=== PATIENT | male | born 1940 | race Caucasian/White ===

== ENCOUNTER 2016-11-24 02:11 | Inpatient (IN) | payer OTHER, MEDICARE ==
[2016-11-24] VITALS (24 sets, daily range): BP systolic 87–190; BP diastolic 58–111; PULSE 61–137; RESP 18–28; TEMP 97.7–98.8; O2SAT 90–97
[~2016-11-24] VITALS: Ht 180.3 cm; Wt 71.0 kg
[~2016-11-24 02:11] MED LIST: ASPI81CH CHEW; ATOR20TA15 PO; BACT800T5 PO; CLOP75TA PO; LISI10TA3 PO; NORC5TAB PO; WALKER WHEELS/F1 MIS
[2016-11-24] MEDS ORDERED: SODIUM CHLORIDE 0.9% FLUSH 5 ML FLUSH IVF PRN (02:30)
[2016-11-24] MEDS ORDERED: FUROSEMIDE 100 MG/10 ML VIAL IVP ONE (02:30)
--- NOTE | 2016-11-24 02:31 | PD ---
HPI Chief Complaint: Respiratory Symptoms Time Seen by Provider: 02:26 Travel History International Travel<30 days: No Contact w/Intl Traveler<30days: No Traveled to known affect area: No History of Present Illness HPI The patient is a 76-year-old male with no known history of lung problems and no history of congestive heart failure complains of sudden onset short of breath one hour ago. He denies any chest discomfort. He states a similar episode happened about a month ago but it went away spontaneously within a few minutes. He denies any fever, cough, wheezing or peripheral extremity swelling. PFSH Past Medical History Hx Anticoagulant Therapy: Yes (asa 81mg, plavix 75mg) Cancer: No Cardiac Catheterization: Yes Cardiovascular Problems: Yes (htn on meds) High Cholesterol: Yes Cerebrovascular Accident: Yes (tia) Coronary Artery Disease: Yes Diminished Hearing: No Endocrine: No Genitourinary: No Hypertension: Yes Immune Disorder: No Implanted Vascular Access Dvce: No Musculoskeletal: No Neurologic: No Psychiatric: No Reproductive: No Respiratory: No ?: Not Past Surgical History Other Surgery: Yes (right endarterectomy 10/2015, SINUS POLYPS REMOVED) Social History Alcohol Use: Yes (OCCASIONAL) Tobacco Use: Yes (1 PPD) Substance Use: No Allergies-Medications (Allergen,Severity, Reaction): Coded Allergies: No Known Allergies (Unverified , 11/24/16) Reported Meds & Prescriptions Reported Meds & Active Scripts Active Reported Atorvastatin (Atorvastatin Calcium) 20 Mg Tab 40 Mg PO BID Clopidogrel (Clopidogrel Bisulfate) 75 Mg Tab 75 Mg PO DAILY Lisinopril 10 Mg Tab 10 Mg PO DAILY Aspirin 81 Mg Chew 81 Mg CHEW DAILY Review of Systems Except as stated in HPI: all other systems reviewed are Neg Physical Exam Narrative GENERAL: The patient is alert, oriented 3 in moderate respiratory distress. His vital signs show blood pressure 190/111 with a heart rate of 137, respirations 28 and oximetry 90% on room air. SKIN: Warm and dry. HEAD: Atraumatic. Normocephalic. EYES: Pupils equal and round. No scleral icterus. No injection or drainage. ENT: No nasal bleeding or discharge. Mucous membranes pink and moist. NECK: Trachea midline. When the patient is laid back slightly he exhibits bilateral JVD. CARDIOVASCULAR: Regular rate and rhythm. No murmur appreciated. RESPIRATORY: No accessory muscle use. Bibasal Rales are heard.. Breath sounds equal bilaterally. GASTROINTESTINAL: Abdomen soft, non-tender, nondistended. Hepatic and splenic margins not palpable. MUSCULOSKELETAL: No obvious deformities. No clubbing. No cyanosis. No edema. NEUROLOGICAL: Awake and alert. No obvious cranial nerve deficits. Motor grossly within normal limits. Normal speech. PSYCHIATRIC: Appropriate mood and affect; insight and judgment normal. Data Data Last Documented VS Vital Signs Date Time Temp Pulse Resp B/P Pulse Ox O2 Delivery O2 Flow Rate FiO2 11/24/16 03:30 118 157/82 11/24/16 02:28 28 96 Nasal Cannula 2 11/24/16 02:17 98.8 Orders Complete Blood Count With Diff (11/24/16 02:25) Comprehensive Metabolic Panel (11/24/16 02:26) B-Type Natriuretic Peptide (11/24/16 02:26) Act Partial Throm Time (Ptt) (11/24/16 02:26) Prothrombin Time / Inr (Pt) (11/24/16 02:26) Magnesium (Mg) (11/24/16 02:26) Ckmb (Isoenzyme) Profile (11/24/16 02:26) Troponin I (11/24/16 02:26) Urinalysis - C+S If Indicated (11/24/16 02:26) Iv Access Insert/Monitor (11/24/16 02:26) Electrocardiogram (11/24/16 02:26) Ecg Monitoring (11/24/16 02:26) Oximetry (11/24/16 02:26) Oxygen Administration (11/24/16 02:26) Sodium Chloride 0.9% Flush (Ns Flush) (11/24/16 02:30) Furosemide Inj (Lasix Inj) (11/24/16 02:30) Nitroglycerin Sl (Nitrostat Sl) (11/24/16 02:30) Vital Signs (Adult) Q15MX4,Q4H (11/24/16 02:52) Director Advertising / Telemetry (11/24/16 02:52) Cardiac Rhythm ROSEMARIE.Q8H (11/24/16 02:52) ^ Notify Dr: Other (11/24/16 02:52) Diltiazem Inj (Cardizem Inj) (11/24/16 03:00) Diltiazem Inj (Cardizem Inj) (11/24/16 03:00) Urinary Catheter Insert/Apply (11/24/16 02:55) Chest, Single Ap (11/24/16 02:26) Heparin Infusion ROSEMARIE.Q1H (11/24/16 03:10) Heparin Inj (Heparin Inj) (11/24/16 03:15) Heparin Inj (Heparin Inj) (11/24/16 09:15) Heparin Inj (Heparin Inj) (11/24/16 09:15) Heparin-D5w Inj (Heparin-D5w Inj) (11/24/16 03:15) Cbc No Diff, Includes Plts (11/27/16 06:00) Act Partial Throm Time (Ptt) (11/24/16 10:10) Occult Blood (Hemoccult) Stool (11/24/16 03:10) Admit Order (Ed Use Only) (11/24/16 03:34) Labs Laboratory Tests Test 11/24/16 11/24/16 02:30 03:15 White Blood Count 10.1 TH/MM3 Red Blood Count 5.13 MIL/MM3 Hemoglobin 15.2 GM/DL Hematocrit 48.0 % Mean Corpuscular Volume 93.5 FL Mean Corpuscular Hemoglobin 29.5 PG Mean Corpuscular Hemoglobin 31.6 % Concent Red Cell Distribution Width 15.0 % Platelet Count 351 TH/MM3 Mean Platelet Volume 7.2 FL Neutrophils (%) (Auto) 50.1 % Lymphocytes (%) (Auto) 37.1 % Monocytes (%) (Auto) 6.1 % Eosinophils (%) (Auto) 5.9 % Basophils (%) (Auto) 0.8 % Neutrophils # (Auto) 5.0 TH/MM3 Lymphocytes # (Auto) 3.8 TH/MM3 Monocytes # (Auto) 0.6 TH/MM3 Eosinophils # (Auto) 0.6 TH/MM3 Basophils # (Auto) 0.1 TH/MM3 CBC Comment DIFF FINAL Differential Comment Prothrombin Time 10.5 SEC Prothromb Time International 1.0 RATIO Ratio Activated Partial 27.5 SEC Thromboplast Time Sodium Level 140 MEQ/L Potassium Level 4.3 MEQ/L Chloride Level 102 MEQ/L Carbon Dioxide Level 28.4 MEQ/L Anion Gap 10 MEQ/L Blood Urea Nitrogen 20 MG/DL Creatinine 1.20 MG/DL Estimat Glomerular Filtration 59 ML/MIN Rate Random Glucose 126 MG/DL Calcium Level 9.1 MG/DL Magnesium Level 2.3 MG/DL Total Bilirubin 0.4 MG/DL Aspartate Amino Transf 22 U/L (AST/SGOT) Alanine Aminotransferase 25 U/L (ALT/SGPT) Alkaline Phosphatase 137 U/L Total Creatine Kinase 77 U/L Troponin I 0.60 NG/ML B-Type Natriuretic Peptide 784 PG/ML Total Protein 9.0 GM/DL Albumin 3.9 GM/DL Urine Color STRAW Urine Turbidity CLEAR Urine pH 5.5 Urine Specific [place] 1.010 Urine Protein NEG mg/dL Urine Glucose (UA) NEG mg/dL Urine Ketones NEG mg/dL Urine Occult Blood TRACE Urine Nitrite NEG Urine Bilirubin NEG Urine Leukocyte Esterase NEG Urine RBC 3-5 /hpf Urine WBC 0-2 /hpf Urine Squamous Epithelial 0-5 /hpf Cells Urine Bacteria NONE /hpf Microscopic Urinalysis Comment CULT NOT INDICATED MDM Medical Decision Making Medical Screen Exam Complete: Yes Emergency Medical Condition: Yes Medical Record Reviewed: Yes Interpretation(s) The complete metabolic profile shows a BUN of 20, glucose 126, alk phosphatase 137 with total protein of 9.0 present otherwise unremarkable. The BNP is 784. The CK is normal but the troponin I is 0.60. The EKG shows atrial fibrillation with RVR [address] elevation on 23 and aVF. Differential Diagnosis Congestive heart failure with pulmonary edema, COPD acute exacerbation, asthma, allergic reaction Narrative Course I discussed the patient with Dr. Gomez. The patient has no chest discomfort. He may have had an acute cardiac event 1 month ago when he had similar symptoms but this does not appear to warrant a full STEMI alert status. He does have a slight elevation of the cardiac enzymes at 0.60. We will put the patient on heparin drip and transferred at [facility]. Dr. Gomez is consulting. The patient has put out about 1200 cc of urine at this time, it is 0340. Cardizem is brought the heart rate down to 108 and we will repeat EKG. The EKG done after the Cardizem showed no ST elevation in II, III, and F aVF. It does now show clear sinus rhythm with PACs. We can now discontinue the Cardizem drip. Impressions: New-onset congestive heart failure with pulmonary edema and elevated troponin I Plan: The patient will be transferred to [facility]. Diagnosis Primary Impression: Acute pulmonary edema with congestive heart failure Additional Impression: Elevated troponin I level Disposition: 01 DISCHARGE HOME Condition: Stable Yaakov Lindquist MD Nov 24, 2016 02:31
[2016-11-24] MEDS: NITROGLYCERIN 0.4 MG SL 25 TABS/BTL SL SCH ×2 (02:35→02:39)
[2016-11-24 02:56] LABS: BASOPHIL # 0.1 TH/MM3 (0-0.2); BASOPHIL % 0.8 % (0.0-2.0); EOSINOPHIL # 0.6 TH/MM3 (0-0.4); EOSINOPHIL % 5.9 % (0.0-4.0); HEMO FLAGS DIFF FINAL; LYMPH % 37.1 % (9.0-44.0); LYMPHOCYTE # 3.8 TH/MM3 (1.0-4.8); MEAN CELL VOLUME 93.5 FL (80.0-100.0); MEAN CORPUSCULAR HEMOGLOBIN 29.5 PG (27.0-34.0); MEAN CORPUSCULAR HGB CONC 31.6 % (32.0-36.0); MONO % 6.1 % (0.0-8.0); NEUT % 50.1 % (16.0-70.0); PLATELET COUNT 351 TH/MM3 (150-450); RED BLOOD COUNT 5.13 MIL/MM3 (4.50-5.90); WHITE BLOOD COUNT 10.1 TH/MM3 (4.0-11.0)
[2016-11-24] MEDS ORDERED: DILTIAZEM INJ 125 MG in SODIUM CHLORIDE 0.9% INJ 100 ML IV SCH (03:00)
[2016-11-24] MEDS ORDERED: DILTIAZEM HCL 25 MG/5 ML VIAL IVP ONE (03:00)
[2016-11-24 03:01] LABS: CHLORIDE 102 MEQ/L (98-107); POTASSIUM 4.3 MEQ/L (3.5-5.1); SODIUM (NA) 140 MEQ/L (136-145)
[2016-11-24 03:04] LABS: ANION GAP 10 MEQ/L (5-15); BICARBONATE 28.4 MEQ/L (21.0-32.0)
[2016-11-24 03:05] LABS: APTT (PATIENT) 27.5 SEC (24.3-30.1); BLOOD UREA NITROGEN 20 MG/DL (7-18); MAGNESIUM 2.3 MG/DL (1.5-2.5); PROTHROMBIN TIME - PATIENT 10.5 SEC (9.8-11.6)
[2016-11-24 03:07] LABS: ALT (GPT) 25 U/L (12-78)
[2016-11-24 03:08] LABS: AST (GOT) 22 U/L (15-37); GLOMERULAR FILTRATION RATE 59 ML/MIN (>89)
[2016-11-24 03:09] LABS: TOTAL BILIRUBIN ADULT 0.4 MG/DL (0.2-1.0)
[2016-11-24 03:10] LABS: ALKALINE PHOSPHATASE 137 U/L (45-117)
[2016-11-24 03:13] LABS: CREATINE KINASE 77 U/L (39-308)
[2016-11-24] MEDS ORDERED: HEPARIN SODIUM - IV 10,000 UNITS/10 ML VIAL IV ONE (03:15)
--- NOTE | 2016-11-24 03:17 | RADHPO ---
EXAM DATE/TIME: 11/24/2016 02:34 [place] COMPARISON: CHEST SINGLE AP, November 08, 2015, 14:43. INDICATIONS : Short of breath. MEDICAL HISTORY : None. SURGICAL HISTORY : None. ENCOUNTER: Initial ACUITY: 1 day PAIN SCORE: 3/10 LOCATION: Bilateral chest FINDINGS: Very mild, diffuse reticular opacities are seen in. No dense or confluent consolidation. No pleural e ffusion or pneumothorax. CONCLUSION: Mild edema and/or atypical infiltrates. Michael Day MD on November 24, 2016 at 3:13 Board Certified Radiologist. This report was verified electronically.
[2016-11-24 03:18] LABS: BLOOD, URINE TRACE (NEG); GLUCOSE,URINE NEG (NEG); KETONE, URINE NEG (NEG); NITRITE,URINE NEG (NEG); PH, URINE 5.5 (5.0-8.5)
[2016-11-24 03:25] LABS: COMMENT (UR) CULT NOT INDICATED; CULTURE IF INDICATED CULT NOT INDICATED; SQUAMOUS EPITHELIAL CELL URINE 0-5 /hpf (0-5); URINE COLOR STRAW (YELLW/STRAW); WBC, URINE 0-2 /hpf (0-5)
[2016-11-24] MEDS: HEPARIN-D5W INJ 250 ML IV SCH (03:25)
[2016-11-24] MEDS ORDERED: NALOXONE HCL 0.4 MG/ML AMP IV PRN (04:15)
[2016-11-24] MEDS ORDERED: SODIUM CHLORIDE 0.9% FLUSH 5 ML FLUSH FLUSH PRN (04:15)
[2016-11-24] MEDS ORDERED: HEPARIN SODIUM - IV 10,000 UNITS/10 ML VIAL IV PRN ×2 (09:15)
[2016-11-24 12:26] LABS: APTT (PATIENT) 36.2 SEC (24.3-30.1)
[2016-11-24] MEDS ORDERED: HEPARIN-NS/PF INJ 500 ML ONE (16:56)
[2016-11-24] MEDS ORDERED: MIDAZOLAM HCL 2 MG/2 ML VIAL ONE (16:56)
--- NOTE | 2016-11-24 17:03 | MB ---
cc: MIRYAM CAMPOS DATE OF CONSULTATION: 11/24/2016 REASON FOR CONSULTATION: Mr. Anderson is a 76 year-old white male with no previous cardiac issues. He presented with shortness of breath and no chest pains. He had similar episodes about a month ago. He has not had any peripheral edema, dizziness or lightheadedness. He has a history of transient ischemic attack. He is ruling in for myocardial infarction by enzymes. He is feeling much better with two liters of diuresis. PAST MEDICAL HISTORY: Positive for hypertension. Dyslipidemia. Transient ischemic attack. Peripheral vascular disease. Right endarterectomy . MEDICATIONS: Aspirin Lisinopril [place] Atorvastatin ALLERGIES NONE. SOCIAL HISTORY: The patient smokes one pack per day. He drinks alcohol occasionally. FAMILY HISTORY: Possible heart disease in his father. REVIEW OF SYSTEMS Otherwise negative. PHYSICAL EXAMINATION: VITAL SIGNS: Blood pressure 126/73. Pulse is 61 and regular. HEAD, EYES, EARS, NOSE, AND THROAT: Negative. 2+ carotid upstrokes, no bruits. LUNGS: Clear. HEART: Regular with no murmur, gallop. ABDOMEN: Soft, no tenderness. EXTREMITIES: Without edema. 1-2+ pulses. NEUROLOGIC: Grossly nonfocal. Electrocardiogram was reviewed and showed sinus we could not see right axis, the anteroseptal Q-waves and acute ST-T wave changes. LABS: Potassium 4.3, creatinine 1.2, troponin 0.60, and 5.85. Creatine kinase 77, B-type natriuretic peptide 784. DIAGNOSIS: 1. Non-ST elevation myocardial infarction. 2. Acute congestive heart failure. 3. Hypertension. 4. Peripheral vascular disease, h/o carotid endarterectomy. 5. Dyslipidemia. 6. Smoking. PLAN: Mr. Anderson will undergo cardiac catheterization and coronary intervention if necessary today. He understands the risks and benefits and wishes to proceed. We will continue post myocardial infarction care and aggressive modification of his cardiac risk factors. The patient understands the risks and benefits, and wishes to proceed. MD RACHANA Mcneill/gerald /1:17 PM /3:35 PM TERRANCE
--- NOTE | 2016-11-24 17:29 | HHI.HP ---
[facility]Staff Ad[facility] Diagnosis CHF with pulmonary edema, A. fib with RVR, elevated troponin I Diagnoses: Chief Complaint: Shortness of breath Travel History International Travel<30 Days: No Contact w/Intl Traveler <30 Da: No Traveled to Known Affected Are: No History of Present Illness Late entry, patient seen around 1 PM. This is a 76-year-old male with history of TIA, PVD, status post carotid endarterectomy without any cardiac comorbidities on aspirin and Plavix who has been in his usual state of health until last night when he started having mild shortness of breath. This morning, while watching television, he started becoming severely short of breath, with dyspnea on exertion, cough productive with clear sputum. He denies any chest pain or palpitation. There is also no note of fever, chills, sick contacts or recent travel. No abdominal pain, diarrhea or any urinary symptoms. Presently, patient is feeling better. There is also no note of chest pain the last few weeks. Review of Systems ROS Limitations: Other (All other pertinent systems were reviewed and are negative.) Past Family Social History Past Medical History Positive for hypertension. Dyslipidemia. Transient ischemic attack. Peripheral vascular disease. Right endarterectomy . Past Surgical History Carotid endarterectomy Reported Medications Atorvastatin (Atorvastatin Calcium) 20 Mg Tab 40 Mg PO BID Clopidogrel (Clopidogrel Bisulfate) 75 Mg Tab 75 Mg PO DAILY Lisinopril 10 Mg Tab 10 Mg PO DAILY Aspirin 81 Mg Chew 81 Mg CHEW DAILY Allergies: Coded Allergies: No Known Allergies (Unverified , 11/24/16) Family History Father probably of a heart attack. Social History The patient smokes one pack per day. He drinks alcohol occasionally. Physical Exam Vital Signs Vital Signs Date Time Temp Pulse Resp B/P Pulse Ox O2 Delivery O2 Flow Rate FiO2 11/24/16 16:21 105/59 11/24/16 15:00 98.4 86 22 111/67 97 11/24/16 14:00 82 11/24/16 08:23 98.4 61 24 126/73 96 11/24/16 06:05 90 18 145/63 96 2 11/24/16 05:37 92 18 147/75 96 Nasal Cannula 2 11/24/16 05:05 92 18 148/86 Nasal Cannula 2 11/24/16 04:29 93 Nasal Cannula 2 11/24/16 04:29 97 20 153/63 96 Nasal Cannula 2 11/24/16 04:13 100 22 156/70 94 Nasal Cannula 2 11/24/16 04:13 94 Nasal Cannula 2 11/24/16 03:55 107 22 151/81 94 Nasal Cannula 2 11/24/16 03:40 109 151/81 11/24/16 03:30 118 157/82 11/24/16 03:15 122 160/75 11/24/16 03:00 125 171/88 11/24/16 02:51 130 163/88 11/24/16 02:45 129 171/93 11/24/16 02:28 28 96 Nasal Cannula 2 11/24/16 02:28 125 28 189/99 96 Nasal Cannula 2 11/24/16 02:25 96 Nasal Cannula 2 11/24/16 02:17 98.8 137 28 190/111 90 Physical Exam GENERAL: Not in acute distress, well-nourished. HEAD: Atraumatic. Normocephalic. No temporal or scalp tenderness. EYES: PERRL, full EOMs, no jaundice, nonicteric, pink conjunctivae without injection, moist mucosa ENT: Nose without bleeding, purulent drainage. Throat without erythema, tonsillar hypertrophy or exudate. Uvula midline. Airway patent. NECK: Trachea midline, no mass, no obvious thyromegaly. No JVD or lymphadenopathy. CARDIOVASCULAR: Regular rate and rhythm without murmurs, gallops, or rubs. RESPIRATORY: Clear to auscultation with normal respiratory effort. Breath sounds equal bilaterally. No use of accessory muscles of respiration. GASTROINTESTINAL: Abdomen soft, normal bowel sounds, non-tender, nondistended. No hepato-splenomegaly or palpable mass. No guarding. PHANI and exam deferred. MUSCULOSKELETAL: Extremities without clubbing, cyanosis, or edema. No joint tendernes. No calf tenderness. Distal pulses intact, 2+ bilaterally. INTEGUMENTARY: Warm and dry, no rash of generalized distribution. NEUROLOGICAL: Awake, alert, oriented 3. No obvious cranial nerve deficits. Moves all 4 extremities, muscle strength testing 5 over 5. Motor and sensory grossly within normal limits. .Supple neck, no meningeal signs. Grossly negative cerebellar examination. No focal neurologic deficits. PSYCHIATRIC: Normal mood, appropriate affect. Laboratory Laboratory Tests Test 11/24/16 11/24/16 11/24/16 11/24/16 02:30 03:15 09:51 12:08 White Blood Count 10.1 Red Blood Count 5.13 Hemoglobin 15.2 Hematocrit 48.0 Mean Corpuscular Volume 93.5 Mean Corpuscular Hemoglobin 29.5 Mean Corpuscular Hemoglobin 31.6 Concent Red Cell Distribution Width 15.0 Platelet Count 351 Mean Platelet Volume 7.2 Neutrophils (%) (Auto) 50.1 Lymphocytes (%) (Auto) 37.1 Monocytes (%) (Auto) 6.1 Eosinophils (%) (Auto) 5.9 Basophils (%) (Auto) 0.8 Neutrophils # (Auto) 5.0 Lymphocytes # (Auto) 3.8 Monocytes # (Auto) 0.6 Eosinophils # (Auto) 0.6 Basophils # (Auto) 0.1 CBC Comment DIFF FINAL Differential Comment Prothrombin Time 10.5 Prothromb Time International 1.0 Ratio Activated Partial 27.5 36.2 Thromboplast Time Sodium Level 140 Potassium Level 4.3 Chloride Level 102 Carbon Dioxide Level 28.4 Anion Gap 10 Blood Urea Nitrogen 20 Creatinine 1.20 Estimat Glomerular Filtration 59 Rate Random Glucose 126 Calcium Level 9.1 Magnesium Level 2.3 Total Bilirubin 0.4 Aspartate Amino Transf 22 (AST/SGOT) Alanine Aminotransferase 25 (ALT/SGPT) Alkaline Phosphatase 137 Total Creatine Kinase 77 99 Troponin I 0.60 5.85 B-Type Natriuretic Peptide 784 Total Protein 9.0 Albumin 3.9 Urine Color STRAW Urine Turbidity CLEAR Urine pH 5.5 Urine Specific [place] 1.010 Urine Protein NEG Urine Glucose (UA) NEG Urine Ketones NEG Urine Occult Blood TRACE Urine Nitrite NEG Urine Bilirubin NEG Urine Leukocyte Esterase NEG Urine RBC 3-5 Urine WBC 0-2 Urine Squamous Epithelial 0-5 Cells Urine Bacteria NONE Microscopic Urinalysis Comment CULT NOT INDICATED Result Diagram: 11/24/16 0230 11/24/16 0230 Assessment and Plan Assessment and Plan This is a 76-year-old male with history of TIA, hypertension and PVD presenting with acute shortness of breath Non-ST elevated myocardial infarction - EKG personally reviewed showed atrial septal Q waves and acute ST-T wave changes. Troponin maxed at 5.85. Continue heparin drip, consult cardiology. Patient will likely need a catheterization. Start metoprolol, aspirin, statin, and morphine for pain, check lipid panel. Acute congestive heart failure exacerbation-consult cardiology as above. Start Lasix, check echocardiogram. Chest x-ray personally reviewed showed mild edema. DVT prophylaxis: On heparin Physician Certification 2 Midnight Certification Type: Admission for Inpatient Services Order for Inpatient Services The services are ordered in accordance with Medicare regulations or non- Medicare payer requirements, as applicable. In the case of services not specified as inpatient-only, they are appropriately provided as inpatient services in accordance with the 2-midnight benchmark. Estimated LOS (days): 2 days is the estimated time the patient will need to remain in the hospital, assuming treatment plan goals are met and no additional complications. Post-Hospital Plan: Home Ricci Pacheco MD Nov 24, 2016 17:29
[2016-11-24] MEDS ORDERED: MORPHINE SULFATE 8 MG/ML INJ IV PUSH PRN (17:45)
[2016-11-24] MEDS ORDERED: NITROGLYCERIN 0.3 MG SL 100 TABS/BTL SL PRN (17:45)
[2016-11-24] MEDS: FUROSEMIDE 40 MG/4 ML VIAL IV PUSH SCH (18:32)
[2016-11-24] MEDS: PRAVASTATIN SOD 40 MG TAB PO SCH (18:32)
[2016-11-24] MEDS: ASPIRIN 325 MG TAB PO SCH (18:45)
[2016-11-24 19:51] LABS: APTT (PATIENT) 35.1 SEC (24.3-30.1)
[2016-11-24] MEDS: SODIUM CHLORIDE 0.9% FLUSH 5 ML FLUSH FLUSH SCH (21:00)
[2016-11-24] MEDS: METOPROLOL TARTRATE 25 MG TAB PO SCH (21:00)
[2016-11-24 22:12] LABS: HEMOGLOBIN A1b 0.9 %; HEMOGLOBIN Ao 85.3 %; HEMOGLOBIN F 0.8 %; HEMOGLOBIN LA1C 2.3 %; HEMOGLOBIN P3 5.2 %
[2016-11-25] VITALS (23 sets, daily range): BP systolic 92–121; BP diastolic 55–65; PULSE 56–97; RESP 16–20; TEMP 97.4–98.7; O2SAT 93–96
[2016-11-25] MEDS: HEPARIN-D5W INJ 250 ML IV SCH (03:09)
[2016-11-25 05:01] LABS: AUTOMATED NEUTROPHIL # 5.5 TH/MM3 (1.8-7.7); BASOPHIL # 0.1 TH/MM3 (0-0.2); BASOPHIL % 1.1 % (0.0-2.0); EOSINOPHIL # 0.4 TH/MM3 (0-0.4); EOSINOPHIL % 4.6 % (0.0-4.0); HEMATOCRIT 38.2 % (39.0-51.0); HEMO FLAGS DIFF FINAL; LYMPH % 22.2 % (9.0-44.0); MEAN CELL VOLUME 91.5 FL (80.0-100.0); MEAN CORPUSCULAR HEMOGLOBIN 30.4 PG (27.0-34.0); MEAN CORPUSCULAR HGB CONC 33.2 % (32.0-36.0); NEUT % 62.1 % (16.0-70.0); PLATELET COUNT 212 TH/MM3 (150-450); RED BLOOD COUNT 4.17 MIL/MM3 (4.50-5.90); RED CELL DISTRIBUTION WIDTH 15.2 % (11.6-17.2); WHITE BLOOD COUNT 8.9 TH/MM3 (4.0-11.0)
[2016-11-25 05:11] LABS: APTT (PATIENT) 48.3 SEC (24.3-30.1)
[2016-11-25 05:23] LABS: BICARBONATE 30.4 MEQ/L (21.0-32.0); HDL CHOLESTEROL 41.9 MG/DL (40.0-60.0); MAGNESIUM 2.3 MG/DL (1.5-2.5); POTASSIUM 3.9 MEQ/L (3.5-5.1)
--- NOTE | 2016-11-25 06:48 | EKG ---
Date Performed: 11/24/2016 Time Performed: 08:50:44 PTAGE: 76 years EKG: Sinus rhythm with PAC(s) Right bundle branch block Inferior/lateral ST-T changes are nonspecific Abnormal ECG PREVIOUS TRACING : 11/24/2016 03.50 Compared to prior tracing no significant change DOCTOR: Hipolito Grossman Interpretating Date/Time 11/25/2016 06:45:33
--- NOTE | 2016-11-25 06:54 | EKG ---
Date Performed: 11/24/2016 Time Performed: 03:50:02 PTAGE: 76 years EKG: Sinus tachycardia with PVC(s) with PAC(s) Right bundle branch block Inferior/lateral ST-T c hanges are nonspecific Abnormal ECG PREVIOUS TRACING : 11/24/2016 02.44 Compared to prior tracing no significant change DOCTOR: Hipolito Grossman Interpretating Date/Time 11/25/2016 06:51:22
--- NOTE | 2016-11-25 06:54 | EKG ---
Date Performed: 11/24/2016 Time Performed: 02:44:30 PTAGE: 76 years EKG: Sinus tachycardia with sinus arrhythmia Possible septal infarct - age undetermined Anterose ptal ST depression and Lateral ST-T changes are nospecific Abnormal ECG PREVIOUS TRACING : 05/20/2016 23.16 DOCTOR: Hipolito Grossman Interpretating Date/Time 11/25/2016 06:53:09
[2016-11-25] MEDS: ASPIRIN 325 MG TAB PO SCH (08:19)
[2016-11-25] MEDS: PRAVASTATIN SOD 40 MG TAB PO SCH (08:19)
[2016-11-25] MEDS: SODIUM CHLORIDE 0.9% FLUSH 5 ML FLUSH FLUSH SCH ×2 (08:19→21:38)
[2016-11-25] MEDS: FUROSEMIDE 40 MG/4 ML VIAL IV PUSH SCH (08:19)
[2016-11-25] MEDS: METOPROLOL TARTRATE 25 MG TAB PO SCH (08:20)
[2016-11-25] MEDS ORDERED: INFLUENZA VIRUS VACCINE (QUADRIVALENT) 0.5 ML SYR IM ONE (10:00)
[2016-11-25] MEDS ORDERED: PNEUMOCOCCAL POLYVALENT INJ 25 MCG/0.5 ML SYR IM ONE (10:00)
[2016-11-25 10:43] LABS: APTT (PATIENT) 46.3 SEC (24.3-30.1)
--- NOTE | 2016-11-25 13:51 | EKG ---
Date Performed: 11/24/2016 Time Performed: 21:51:24 PTAGE: 76 years EKG: Sinus rhythm with PAC(s) Right bundle branch block Left ventricular hypertrophy Inferior/lateral ST-T changes may be due to hypertrophy and/or ischemia Abnormal ECG PREVIOUS TRACING : 11/24/2016 08.50.44 Since previous tracing, no significant change noted DOCTOR: Nandini Cuellar Interpretating Date/Time 11/25/2016 13:45:04
[2016-11-25] MEDS ORDERED: MIDAZOLAM HCL 2 MG/2 ML VIAL ONE (13:55)
[2016-11-25] MEDS ORDERED: HEPARIN-NS/PF INJ 500 ML ONE (13:55)
[2016-11-25] MEDS ORDERED: IOHEXOL 350 MG/ML 100 ML BTL (for Cath Lab) OTHER ONE (14:17)
[2016-11-25] MEDS ORDERED: HEPARIN SODIUM - IV 10,000 UNITS/10 ML VIAL ONE (14:32)
[2016-11-25] MEDS ORDERED: TEMAZEPAM 15 MG CAP PO PRN (15:15)
[2016-11-25] MEDS ORDERED: ACETAMINOPHEN 325 MG TAB PO PRN (15:15)
[2016-11-25] MEDS ORDERED: CLOPIDOGREL 300 MG TAB PO ONE (15:15)
[2016-11-25] MEDS ORDERED: MISC INFORMATION XX ONE (15:15)
--- NOTE | 2016-11-25 17:47 | HHI.PR ---
Subjective Remarks f/u sob SOB bettter today, s/p [employer], no chest pain, no fever or chills Objective Vitals Vital Signs Date Time Temp Pulse Resp B/P Pulse Ox O2 Delivery O2 Flow Rate FiO2 11/25/16 17:00 92 11/25/16 16:00 90 11/25/16 15:00 98.7 11/25/16 15:00 98.7 56 18 111/61 93 11/25/16 15:00 95 11/25/16 14:00 67 11/25/16 13:19 81 11/25/16 12:54 93 11/25/16 12:00 84 11/25/16 11:00 73 11/25/16 10:00 79 11/25/16 09:00 83 11/25/16 08:00 80 11/25/16 08:00 97.4 83 16 93/65 94 11/25/16 06:00 96 11/25/16 05:00 75 11/25/16 04:00 97.7 79 16 115/63 94 11/25/16 04:00 74 11/25/16 03:00 79 11/25/16 02:00 81 11/25/16 01:00 76 11/25/16 00:00 83 11/25/16 00:00 97.9 80 18 92/55 93 11/24/16 23:00 81 11/24/16 22:00 80 11/24/16 21:00 91 11/24/16 20:00 85 11/24/16 20:00 85 11/24/16 20:00 97.7 92 20 87/58 92 11/24/16 19:00 85 I/O 11/24/16 11/24/16 11/24/16 11/25/16 11/25/16 11/25/16 07:00 15:00 23:00 07:00 15:00 23:00 Intake Total 360 ml 586 ml Output Total 3200 ml 1925 ml 1650 ml Balance -3200 ml -1565 ml -1064 ml Intake Oral 360 ml 340 ml IV Total 246 ml Output Urine Total 3200 ml 1925 ml 1650 ml Result Diagram: 11/25/16 0405 11/25/16 0405 Objective Remarks Not in distress, well-nourished, looks stated age PERRL, pink conjunctiva without injection, anicteric Nose without bleeding, airway patent, oropharynx clear Supple neck, no masses or thyromegaly, trachea midline Normal rate and regular rhythm, no murmurs gallops or rubs appreciated. Crackles at bases but less than yesterday, no wheezing. Normal bowel sounds, soft, non-tender, nondistended, no guarding. Right groin no hematoma. Extremities without clubbing, cyanosis, no edema. No rash of generalized distribution. Skin is warm and dry. AAO x3, no cranial nerve deficits, moves all 4 extremities, no focal neurologic deficits Normal mood, appropriate affect A/P Assessment and Plan This is a 76-year-old male with history of TIA, hypertension and PVD presenting with acute shortness of breath Non-ST elevated myocardial infarction - EKG personally reviewed showed atrial septal Q waves and acute ST-T wave changes. Troponin maxed at 5.85. Cardiac catheterization done 11/25/16, showed 70% occlusion of LAD, 40% of the diagonal , 60% circumflex, 40% of obtuse marginal, RCA 90%. Patient has multivessel coronary artery disease. Discussed with cardiology, patient is too sick to undergo CABG. Ejection fraction is 15%. Of demise medical management. Continue Coreg, statin, aspirin, Plavix, Lasix, Imdur and nitroglycerin as needed. Patient will need a LifeVest. Acute congestive heart failure exacerbation- cardiology following. Chest x-ray personally reviewed showed mild edema. Continue Lasix, recheck BMP tomorrow. Ejection fraction 15% from cardiac catheterization. Follow-up echocardiogram DVT prophylaxis: On Lasix. Discussed with cardiology Ricci Monet MD Nov 25, 2016 17:47
[2016-11-25] MEDS: FUROSEMIDE 20 MG/2 ML VIAL IV PUSH SCH (18:00)
--- NOTE | 2016-11-25 19:03 | EC ---
Study Study Date:11/25/2016 STUDY CONCLUSIONS SUMMARY - Left ventricle: The cavity size was normal. Wall thickness was increased in a pattern of mild LVH. Systolic function was normal. The estimated ejection fraction was in the range of 10% to 20%. Diffuse hypokinesis. - Aortic valve: Mild to moderate regurgitation. Valve area: 1.39cm^2(VTI). Valve area: 1.48cm^2 (Vmax). - Mitral valve: Mild regurgitation. If LV function is below 40, please consider prescribing an ACEI or ARB or document rationale for non-use. PROCEDURE DATA STUDY STATUS: Elective. Procedure: Transthoracic echocardiography. Image quality was good. Scanning was performed from the parasternal, apical, and subcostal acoustic windows. Study completion: The patient tolerated the procedure well. Transthoracic echocardiography. M-mode, complete 2D, complete spectral Doppler, and color Doppler. Height: Height: 71in. Weight: Weight: 165.7lb. Body mass index: BMI: 23.2kg/m^2. Body surface area: BSA: 1.95m^2. Patient status: Inpatient. CARDIAC ANATOMY LEFT VENTRICLE: The cavity size was normal. Wall thickness was increased in a pattern of mild LVH. Systolic function was normal. The estimated ejection fraction was in the range of 10% to 20%. Diffuse hypokinesis. AORTIC VALVE: Trileaflet; normal thickness leaflets. Doppler: Transvalvular velocity was within the normal range. There was no stenosis. Mild to moderate regurgitation. Valve area: 1.39cm^2(VTI). Indexed valve area: 0.71cm^2/m^2 (VTI). Valve area: 1.48cm^2 (Vmax). Indexed valve area: 0.76cm^2/m^2 (Vmax). Mean gradient: 3mm Hg (S). AORTA: Aortic root: The aortic root was normal in size. MITRAL VALVE: Structurally normal valve. Doppler: Transvalvular velocity was within the normal range. There was no evidence for stenosis. Mild regurgitation. LEFT ATRIUM: The atrium was normal in size. RIGHT VENTRICLE: The cavity size was normal. Wall thickness was normal. PULMONIC VALVE: Doppler: Transvalvular velocity was within the normal range. There was no evidence for stenosis. No regurgitation. TRICUSPID VALVE: Structurally normal valve. Doppler: Transvalvular velocity was within the normal range. Trace to mild regurgitation. PULMONARY ARTERY: The main pulmonary artery was normal-sized. Systolic pressure was within the normal range. RIGHT ATRIUM: The atrium was normal in size. PERICARDIUM: There was no pericardial effusion. SYSTEMIC VEINS: Inferior vena cava: The vessel was normal in size. Patient weight: 165.7lb _Ejection fraction:_ 65-75% _Fractional shortening:_ 32% up to 5Kg 5-11.5Kg 11.6-22.9Kg 23-45Kg 45-57Kg Aortic Root 7-13 <17 13-22 17-27 17-27 LA diam 6-13 <23 24-38 33-47 37-40 RVID 10-17 7-15 7-15 7-18 8-17 LVIDd 12-22 <32 24-38 33-47 37-40 LVPW 2-4 3-6 5-7 6-8 7-8 IVS 2-4 3-6 5-7 6-8 7-8 BASIC MEASUREMENTS ADULT NORMAL Left ventricle LV internal dimension, ED, chordal 51.4 mm 43-52 level, PLAX LV internal dimension, ES, chordal *46.9 mm 23-38 level, PLAX Fractional shortening, chordal level, *9 % >29 PLAX LV posterior wall thickness, ED 11.8 mm IVS/LVPW ratio, ED 1 <1.3 Ventricular septum Septal thickness, ED 11.8 mm Aortic valve Leaflet separation 16 mm 15-26 Aorta Root diameter, ED 34 mm Left atrium Anterior-posterior dimension 35 mm Anterior-posterior dimension index 1.79 cm/m^2 <2.2 BASIC MEASUREMENTS ADULT NORMAL Aortic valve Leaflet separation 16 mm 15-26 DOPPLER MEASUREMENTS ADULT NORMAL Main pulmonary artery Pressure, S 21 mm Hg =30 Aortic valve Peak velocity, S 106 cm/s Mean velocity, S 79.1 cm/s VTI, S 19.5 cm Mean gradient, S 3 mm Hg Valve area, VTI 1.39 cm^2 Valve area index, VTI 0.71 cm^2/m^2 Valve area, Vmax 1.48 cm^2 Valve area index, Vmax 0.76 cm^2/m^2 Regurgitant velocity, ED 416 cm/s Regurgitant deceleration 3850 cm/s^2 Regurgitant pressure half-time 317 ms Regurgitant gradient, ED 69 mm Hg Mitral valve Peak E-wave velocity 45.8 cm/s Peak A-wave velocity 103 cm/s Peak E/A ratio 0.4 Tricuspid valve Regurgitant peak velocity 216 cm/s Peak RV-RA gradient, S 19 mm Hg Maximal regurgitant velocity 216 cm/s Systemic veins Estimated CVP 5 mm Hg Right ventricle RV pressure, S 24 mm Hg <30 Pulmonic valve Peak velocity, S 92.7 cm/s LEGEND: Mean values are shown as u=mean value. Asterisk (*) hayes values outside specified normal range. Prepared and signed by Suki Hodges [id number]
[2016-11-25] MEDS ORDERED: CLOPIDOGREL 75 MG TAB ONE (19:21)
[2016-11-25] MEDS ORDERED: CARVEDILOL 3.125 MG TAB PO SCH (21:00)
[2016-11-25] MEDS: ATORVASTATIN 80 MG TAB PO SCH (21:37)
[2016-11-25] MEDS: CARVEDILOL 6.25 MG TAB PO SCH (21:37)
[2016-11-26] VITALS (24 sets, daily range): BP systolic 71–103; BP diastolic 38–59; PULSE 70–91; RESP 18–22; TEMP 97.1–98; O2SAT 91–96
[2016-11-26 05:02] LABS: AUTOMATED NEUTROPHIL # 5.1 TH/MM3 (1.8-7.7); BASOPHIL # 0.1 TH/MM3 (0-0.2); BASOPHIL % 0.6 % (0.0-2.0); EOSINOPHIL # 0.3 TH/MM3 (0-0.4); EOSINOPHIL % 4.1 % (0.0-4.0); HEMATOCRIT 37.6 % (39.0-51.0); HEMO FLAGS DIFF FINAL; LYMPH % 20.9 % (9.0-44.0); LYMPHOCYTE # 1.7 TH/MM3 (1.0-4.8); MEAN CELL VOLUME 90.8 FL (80.0-100.0); MEAN CORPUSCULAR HEMOGLOBIN 30.8 PG (27.0-34.0); MEAN CORPUSCULAR HGB CONC 33.9 % (32.0-36.0); MONO % 10.5 % (0.0-8.0); NEUT % 63.9 % (16.0-70.0); PLATELET COUNT 218 TH/MM3 (150-450); RED BLOOD COUNT 4.14 MIL/MM3 (4.50-5.90); RED CELL DISTRIBUTION WIDTH 15.5 % (11.6-17.2); WHITE BLOOD COUNT 7.9 TH/MM3 (4.0-11.0)
[2016-11-26 05:12] LABS: APTT (PATIENT) 27.3 SEC (24.3-30.1)
[2016-11-26 05:24] LABS: HDL CHOLESTEROL 40.9 MG/DL (40.0-60.0)
[2016-11-26] MEDS: ISOSORBIDE MONONITRATE 30 MG TAB PO SCH (06:39)
[2016-11-26] MEDS: ASPIRIN 81 MG CHEW TAB PO SCH (08:39)
[2016-11-26] MEDS: CLOPIDOGREL 75 MG TAB PO SCH (08:40)
[2016-11-26] MEDS: FUROSEMIDE 20 MG/2 ML VIAL IV PUSH SCH (08:40)
[2016-11-26] MEDS: LISINOPRIL 5 MG TAB PO SCH (08:41)
[2016-11-26] MEDS: SODIUM CHLORIDE 0.9% FLUSH 5 ML FLUSH FLUSH SCH ×2 (08:41→20:42)
[2016-11-26] MEDS: CARVEDILOL 6.25 MG TAB PO SCH (08:43)
--- NOTE | 2016-11-26 10:49 | PD.CARD.PN ---
Subjective Subjective Remarks No chest Pains overall stable s/p PCI Objective Vital Signs / I&O Vital Signs Date Time Temp Pulse Resp B/P Pulse Ox O2 Delivery O2 Flow Rate FiO2 11/26/16 10:22 80 11/26/16 09:00 84 11/26/16 08:16 92 Nasal Cannula 2.00 11/26/16 08:00 81 11/26/16 07:30 97.7 88 18 103/55 95 11/26/16 05:00 76 11/26/16 04:00 97.5 80 20 103/57 96 11/26/16 03:00 88 11/26/16 00:00 86 11/25/16 23:00 98.1 91 20 121/64 96 11/25/16 22:00 90 11/25/16 21:00 87 11/25/16 19:00 96 11/25/16 19:00 98.1 96 20 121/58 94 11/25/16 18:00 97 11/25/16 17:00 92 11/25/16 16:00 90 11/25/16 15:00 98.7 11/25/16 15:00 98.7 56 18 111/61 93 11/25/16 15:00 95 11/25/16 14:00 67 11/25/16 13:19 81 11/25/16 12:54 93 11/25/16 12:00 84 11/25/16 11:00 73 I/O 11/25/16 11/25/16 11/25/16 11/26/16 11/26/16 11/26/16 06:59 14:59 22:59 06:59 14:59 22:59 Intake Total 586 ml 557 ml 480 ml Output Total 1650 ml 1250 ml 300 ml Balance -1064 ml -693 ml 180 ml Intake Oral 340 ml 480 ml 480 ml IV Total 246 ml 77 ml 0 ml Output Urine Total 1650 ml 1250 ml 300 ml # Bowel Movements 0 0 Physical Exam CONSTITUTIONAL: A well-developed, well-nourished patient in no apparent distress. EYES: Conjunctiva normal. Sclera nonicteric. Eyelids normal. No xanthelasma. HEENT: Oral mucosa normal without pallor or cyanosis. NECK: JVD less than or equal to 5 cm of water. RESPIRATORY: Breathing is unlabored without accessory muscle use. Normal breath sounds. No wheezes, rales or rubs present. CARDIOVASCULAR: Normal point of maximal impulse. No cardiac thrill present. Regular rate and rhythm. No murmurs, gallops, rubs or clicks present. PERIPHERAL CIRCULATION: No cyanosis, clubbing, edema or varicosities present. GASTROINTESTINAL: Normal bowel sounds. Nontender without rigidity or guarding. No masses present. No hepatomegaly. Liver is nontender to palpation and spleen is nonpalpable. Digital rectal exam - not indicated for cardiovascular exam. MUSCULOSKELETAL: No kyphosis or scoliosis present. The patient is not ambulated. Able to undergo rehabilitation. SKIN: Skin turgor is normal. No rashes. NEUROLOGICAL: Grossly oriented to person, place and time. Normal mood and appropriate affect. Laboratory Laboratory Tests Test 11/26/16 04:10 White Blood Count 7.9 TH/MM3 Red Blood Count 4.14 MIL/MM3 Hemoglobin 12.8 GM/DL Hematocrit 37.6 % Mean Corpuscular Volume 90.8 FL Mean Corpuscular Hemoglobin 30.8 PG Mean Corpuscular Hemoglobin 33.9 % Concent Red Cell Distribution Width 15.5 % Platelet Count 218 TH/MM3 Mean Platelet Volume 7.3 FL Neutrophils (%) (Auto) 63.9 % Lymphocytes (%) (Auto) 20.9 % Monocytes (%) (Auto) 10.5 % Eosinophils (%) (Auto) 4.1 % Basophils (%) (Auto) 0.6 % Neutrophils # (Auto) 5.1 TH/MM3 Lymphocytes # (Auto) 1.7 TH/MM3 Monocytes # (Auto) 0.8 TH/MM3 Eosinophils # (Auto) 0.3 TH/MM3 Basophils # (Auto) 0.1 TH/MM3 CBC Comment DIFF FINAL Differential Comment Activated Partial 27.3 SEC Thromboplast Time Sodium Level 136 MEQ/L Potassium Level 4.0 MEQ/L Chloride Level 100 MEQ/L Carbon Dioxide Level 29.0 MEQ/L Anion Gap 7 MEQ/L Blood Urea Nitrogen 25 MG/DL Creatinine 0.97 MG/DL Estimat Glomerular Filtration 76 ML/MIN Rate Random Glucose 101 MG/DL Calcium Level 8.4 MG/DL Total Creatine Kinase 37 U/L Triglycerides Level 105 MG/DL Cholesterol Level 153 MG/DL LDL Cholesterol 91 MG/DL HDL Cholesterol 40.9 MG/DL Cholesterol/HDL Ratio 3.74 RATIO Assessment and Plan Assessment and Plan Overall poor prognosis , awaiting lifevest, stable cv. wound sites OK. Discussed Condition With RN in detail Norma Agustin MD Nov 26, 2016 10:49
--- NOTE | 2016-11-26 13:53 | HHI.PR ---
Subjective Remarks Follow-up for an STEMI Shortness of breath a lot better, no chest pain. Still waiting for LifeVest. No nausea or vomiting. Objective Vitals Vital Signs Date Time Temp Pulse Resp B/P Pulse Ox O2 Delivery O2 Flow Rate FiO2 11/26/16 13:00 79 11/26/16 12:00 72 11/26/16 11:39 97.9 76 20 99/59 96 11/26/16 11:39 73 11/26/16 10:22 80 11/26/16 09:00 84 11/26/16 08:16 92 Nasal Cannula 2.00 11/26/16 08:00 81 11/26/16 07:30 97.7 88 18 103/55 95 11/26/16 05:00 76 11/26/16 04:00 97.5 80 20 103/57 96 11/26/16 03:00 88 11/26/16 00:00 86 11/25/16 23:00 98.1 91 20 121/64 96 11/25/16 22:00 90 11/25/16 21:00 87 11/25/16 19:00 96 11/25/16 19:00 98.1 96 20 121/58 94 11/25/16 18:00 97 11/25/16 17:00 92 11/25/16 16:00 90 11/25/16 15:00 98.7 11/25/16 15:00 98.7 56 18 111/61 93 11/25/16 15:00 95 11/25/16 14:00 67 I/O 11/25/16 11/25/16 11/25/16 11/26/16 11/26/16 11/26/16 07:00 15:00 23:00 07:00 15:00 23:00 Intake Total 586 ml 557 ml 480 ml Output Total 1650 ml 1250 ml 300 ml Balance -1064 ml -693 ml 180 ml Intake Oral 340 ml 480 ml 480 ml IV Total 246 ml 77 ml 0 ml Output Urine Total 1650 ml 1250 ml 300 ml # Bowel Movements 0 0 Result Diagram: 11/26/1640911/26/16409 Objective Remarks Not in distress, well-nourished, looks stated age PERRL, pink conjunctiva without injection, anicteric Nose without bleeding, airway patent, oropharynx clear Supple neck, no masses or thyromegaly, trachea midline Normal rate and regular rhythm, no murmurs gallops or rubs appreciated. Crackles at bases but less than yesterday, no wheezing. Normal bowel sounds, soft, non-tender, nondistended, no guarding. Right groin no hematoma. Extremities without clubbing, cyanosis, no edema. No rash of generalized distribution. Skin is warm and dry. AAO x3, no cranial nerve deficits, moves all 4 extremities, no focal neurologic deficits Normal mood, appropriate affect A/P Assessment and Plan This is a 76-year-old male with history of TIA, hypertension and PVD presenting with acute shortness of breath Non-ST elevated myocardial infarction - EKG personally reviewed showed atrial septal Q waves and acute ST-T wave changes. Troponin maxed at 5.85. Cardiac catheterization done 11/25/16, showed 70% occlusion of LAD, 40% of the diagonal , 60% circumflex, 40% of obtuse marginal, RCA 90%. Patient has multivessel coronary artery disease. Discussed with cardiology, patient is too sick to undergo CABG. Ejection fraction is 15%. Optimize medical management. Continue Coreg, statin, aspirin, Plavix, Lasix, Imdur and nitroglycerin as needed. Patient will need a LifeVest, likely available tomorrow. Acute congestive heart failure exacerbation- cardiology following. Chest x-ray personally reviewed showed mild edema. Continue Lasix, switch to oral, BMP stable. Ejection fraction 15% from cardiac catheterization. Echocardiogram showed an ejection fraction of 10-20%. Recheck BMP tomorrow. Continue lisinopril DVT prophylaxis: On Plavix. Discussed with cardiology Dr. Gomez Discharge Planning Possible discharge tomorrow Ricci Pacheco MD Nov 26, 2016 13:53
[2016-11-26] MEDS ORDERED: SODIUM CHLOR 0.9% 1000 ML INJ 1,000 ML IV SCH (15:30)
[2016-11-26] MEDS: SODIUM CHLOR 0.9% 1000 ML INJ 1,000 ML IV SCH (15:30)
[2016-11-26] MEDS: ATORVASTATIN 80 MG TAB PO SCH (20:42)
[2016-11-26] MEDS ORDERED: FUROSEMIDE 40 MG TAB PO SCH (21:00)
[2016-11-26] MEDS ORDERED: CARVEDILOL 6.25 MG TAB PO SCH (21:00)
[2016-11-27] VITALS (25 sets, daily range): BP systolic 87–140; BP diastolic 50–81; PULSE 66–94; RESP 17–20; TEMP 97.4–97.8; O2SAT 93–96
[2016-11-27] MEDS: SODIUM CHLOR 0.9% 1000 ML INJ 1,000 ML IV SCH (03:25)
[2016-11-27] MEDS: ISOSORBIDE MONONITRATE 30 MG TAB PO SCH (06:15)
[2016-11-27 06:26] LABS: AUTOMATED NEUTROPHIL # 4.7 TH/MM3 (1.8-7.7); BASOPHIL % 0.6 % (0.0-2.0); EOSINOPHIL # 0.6 TH/MM3 (0-0.4); EOSINOPHIL % 7.6 % (0.0-4.0); HEMATOCRIT 37.2 % (39.0-51.0); HEMO FLAGS DIFF FINAL; LYMPH % 21.7 % (9.0-44.0); LYMPHOCYTE # 1.7 TH/MM3 (1.0-4.8); MEAN CELL VOLUME 90.5 FL (80.0-100.0); MEAN CORPUSCULAR HEMOGLOBIN 30.5 PG (27.0-34.0); MEAN CORPUSCULAR HGB CONC 33.7 % (32.0-36.0); MONO % 9.6 % (0.0-8.0); NEUT % 60.5 % (16.0-70.0); PLATELET COUNT 232 TH/MM3 (150-450); RED BLOOD COUNT 4.11 MIL/MM3 (4.50-5.90); RED CELL DISTRIBUTION WIDTH 15.3 % (11.6-17.2); WHITE BLOOD COUNT 7.7 TH/MM3 (4.0-11.0)
[2016-11-27 06:40] LABS: BICARBONATE 29.5 MEQ/L (21.0-32.0); POTASSIUM 4.3 MEQ/L (3.5-5.1)
[2016-11-27] MEDS: CLOPIDOGREL 75 MG TAB PO SCH (08:38)
[2016-11-27] MEDS: LISINOPRIL 5 MG TAB PO SCH (08:38)
[2016-11-27] MEDS: ASPIRIN 81 MG CHEW TAB PO SCH (08:38)
[2016-11-27] MEDS: SODIUM CHLORIDE 0.9% FLUSH 5 ML FLUSH FLUSH SCH ×2 (08:39→21:00)
[2016-11-27] MEDS: FUROSEMIDE 20 MG TAB PO SCH (08:39)
[2016-11-27] MEDS ORDERED: CARVEDILOL 6.25 MG TAB PO SCH (09:00)
[2016-11-27] MEDS ORDERED: FURO20TA PO (10:44)
[2016-11-27] MEDS ORDERED: LIPI80TA PO (10:44)
[2016-11-27] MEDS ORDERED: CARV6.25 PO (10:44)
[2016-11-27] MEDS ORDERED: LISI-519 PO (10:44)
[2016-11-27] MEDS ORDERED: ISOS30TA3 PO (10:44)
[2016-11-27] MEDS ORDERED: CLOP75TA PO (10:44)
--- NOTE | 2016-11-27 11:03 | HHI.PR ---
Subjective Remarks Follow-up for coronary artery disease, CHF Agents blood pressure yesterday was systolic in the 60s to 70s, asymptomatic. Patient denies any dizziness, lightheadedness or syncope. Today blood pressure is in the 90s. No chest pain, no shortness of breath, -700 cc overnight. Objective Vitals Vital Signs Date Time Temp Pulse Resp B/P Pulse Ox O2 Delivery O2 Flow Rate FiO2 11/27/16 10:29 96 21 11/27/16 09:04 73 11/27/16 08:44 80 11/27/16 07:30 79 11/27/16 07:30 97.7 83 20 87/50 96 11/27/16 06:01 90 11/27/16 05:00 87 11/27/16 04:01 74 11/27/16 03:30 97.6 84 17 93/52 94 11/27/16 03:00 72 11/27/16 02:01 66 11/27/16 01:01 78 11/27/16 00:00 80 11/26/16 23:01 79 11/26/16 23:01 97.7 74 22 96/56 92 11/26/16 22:00 80 11/26/16 21:00 80 11/26/16 20:21 91 21 11/26/16 20:01 98.0 76 22 71/48 92 11/26/16 20:00 79 11/26/16 19:00 91 11/26/16 18:00 73 11/26/16 17:40 74 11/26/16 16:04 73 11/26/16 15:00 73 11/26/16 15:00 97.1 73 20 72/38 96 11/26/16 14:00 70 11/26/16 13:00 79 11/26/16 12:00 72 11/26/16 11:39 97.9 76 20 99/59 96 11/26/16 11:39 73 I/O 11/26/16 11/26/16 11/26/16 11/27/16 11/27/16 11/27/16 07:00 15:00 23:00 07:00 15:00 23:00 Intake Total 480 ml 880 ml 980 ml Output Total 300 ml 780 ml 1750 ml Balance 180 ml 100 ml -770 ml Intake Oral 480 ml 720 ml 480 ml IV Total 0 ml 160 ml 500 ml Output Urine Total 300 ml 780 ml 1750 ml # Voids 3 # Bowel Movements 0 0 0 Result Diagram: 11/27/16 0505 11/27/16 0505 Objective Remarks Not in distress, well-nourished, looks stated age PERRL, pink conjunctiva without injection, anicteric Nose without bleeding, airway patent, oropharynx clear Supple neck, no masses or thyromegaly, trachea midline Normal rate and regular rhythm, no murmurs gallops or rubs appreciated. Clear breath sounds. Normal bowel sounds, soft, non-tender, nondistended, no guarding. Right groin no hematoma. Extremities without clubbing, cyanosis, no edema. No rash of generalized distribution. Skin is warm and dry. AAO x3, no cranial nerve deficits, moves all 4 extremities, no focal neurologic deficits Normal mood, appropriate affect A/P Assessment and Plan This is a 76-year-old male with history of TIA, hypertension and PVD presenting with acute shortness of breath Non-ST elevated myocardial infarction - EKG personally reviewed showed atrial septal Q waves and acute ST-T wave changes. Troponin maxed at 5.85. Cardiac catheterization done 11/25/16, showed 70% occlusion of LAD, 40% of the diagonal , 60% circumflex, 40% of obtuse marginal, RCA 90%. Patient has multivessel coronary artery disease. Discussed with cardiology, patient is too sick to undergo CABG. Ejection fraction is 15%. Optimize medical management. Continue Coreg, decrease dose because of too much hypotension, continue statin, aspirin, Plavix, Lasix, Imdur and nitroglycerin as needed. Patient will need a LifeVest, discharged once LifeVest is in place. Blood pressures too low, decrease Coreg 3.125 mg twice a day, decrease Lasix to 20 mg daily and increase lisinopril to 2.5 mg daily. Cleared by cardiology for discharge if LifeVest is approved and delivered. Acute congestive heart failure exacerbation- Chest x-ray personally reviewed showed mild edema. Continue Lasix at a lower dose, decrease the Synthroid to 2.5 mg daily because of hypotension. BMP stable. Ejection fraction 15% from cardiac catheterization. Echocardiogram showed an ejection fraction of 10-20%. DVT prophylaxis: On Plavix. Discussed with Dr. Agustin and brim rounder Planning Possible discharge tomorrow Ricci Pacheco MD Nov 27, 2016 11:03
--- NOTE | 2016-11-27 11:04 | HHI.DS ---
Discharge Summary Admission Date Nov 24, 2016 at 03:38 Discharge Date: Nov 27, 2016 Admitting Diagnosis CHF with pulmonary edema, A. fib with RVR, elevated troponin I (1) Acute pulmonary edema with congestive heart failure ICD Code: I50.1 (2) NSTEMI (non-ST elevated myocardial infarction) ICD Code: I21.4 Procedures DISPENSING AUDIOLOGIST Brief History - From Admission Late entry, patient seen around 1 PM. This is a 76-year-old male with history of TIA, PVD, status post carotid endarterectomy without any cardiac comorbidities on aspirin and Plavix who has been in his usual state of health until last night when he started having mild shortness of breath. This morning, while watching television, he started becoming severely short of breath, with dyspnea on exertion, cough productive with clear sputum. He denies any chest pain or palpitation. There is also no note of fever, chills, sick contacts or recent travel. No abdominal pain, diarrhea or any urinary symptoms. Presently, patient is feeling better. There is also no note of chest pain the last few weeks. CBC/BMP: 11/27/16 0505 11/27/16 0505 Significant Findings Laboratory Tests Test 11/24/16 11/24/16 11/25/16 11/25/16 12:08 19:30 04:05 09:53 Activated Partial 36.2 SEC 35.1 SEC 48.3 SEC 46.3 SEC Thromboplast Time (24.3-30.1) (24.3-30.1) (24.3-30.1) (24.3-30.1) Troponin I 7.10 NG/ML (0.02-0.05) Red Blood Count 4.17 MIL/MM3 (4.50-5.90) Hemoglobin 12.7 GM/DL (13.0-17.0) Hematocrit 38.2 % (39.0-51.0) Monocytes (%) (Auto) 10.0 % (0.0-8.0) Eosinophils (%) (Auto) 4.6 % (0.0-4.0) Blood Urea Nitrogen 20 MG/DL (7-18) Estimat Glomerular Filtration 75 ML/MIN (>89) Rate B-Type Natriuretic Peptide 867 PG/ML (0-100) Test 11/26/16 11/27/16 04:10 05:05 Red Blood Count 4.14 MIL/MM3 4.11 MIL/MM3 (4.50-5.90) (4.50-5.90) Hemoglobin 12.8 GM/DL 12.5 GM/DL (13.0-17.0) (13.0-17.0) Hematocrit 37.6 % 37.2 % (39.0-51.0) (39.0-51.0) Monocytes (%) (Auto) 10.5 % 9.6 % (0.0-8.0) (0.0-8.0) Eosinophils (%) (Auto) 4.1 % (0.0-4.0) 7.6 % (0.0-4.0) Blood Urea Nitrogen 25 MG/DL (7-18) 27 MG/DL (7-18) Estimat Glomerular Filtration 76 ML/MIN (>89) 65 ML/MIN (>89) Rate Calcium Level 8.4 MG/DL (8.5-10.1) Total Creatine Kinase 37 U/L (39-308) Eosinophils # (Auto) 0.6 TH/MM3 (0-0.4) PE at Discharge Not in distress, well-nourished, looks stated age PERRL, pink conjunctiva without injection, anicteric Nose without bleeding, airway patent, oropharynx clear Supple neck, no masses or thyromegaly, trachea midline Normal rate and regular rhythm, no murmurs gallops or rubs appreciated. Clear breath sounds. Normal bowel sounds, soft, non-tender, nondistended, no guarding. Right groin no hematoma. Extremities without clubbing, cyanosis, no edema. No rash of generalized distribution. Skin is warm and dry. AAO x3, no cranial nerve deficits, moves all 4 extremities, no focal neurologic deficits Normal mood, appropriate affect Hospital Course This is a 76-year-old male with history of TIA, hypertension and PVD presenting with acute shortness of breath. EKG personally reviewed showed atrial septal Q waves and acute ST-T wave changes. Troponin maxed at 5.85. Patient treated with NSTEMI. CArdiology consulted. Cardiac catheterization done 11/25/16, showed 70% occlusion of LAD, 40% of the diagonal, 60% circumflex , 40% of obtuse marginal, RCA 90%. Patient has multivessel coronary artery disease. Discussed with cardiology, patient is too sick to undergo CABG. Ejection fraction is 15%. Optimize medical management. Continue Coreg, decrease dose because of too much hypotension, continue statin, aspirin, Plavix , Lasix, Imdur and nitroglycerin as needed. Patient will need a LifeVest, discharge once LifeVest is in place. Cleared by cardiology for discharge if LifeVest is approved and delivered. Pt Condition on Discharge: Good Discharge Disposition: Discharge Home Discharge Time: > 30 minutes Discharge Instructions DIET: Follow Instructions for: Heart Healthy Diet Activities you can perform: Regular-No Restrictions New Medications: Atorvastatin (Lipitor) 80 Mg Tab 80 MG PO HS CAD #30 TAB Carvedilol (Coreg) 6.25 Mg Tab 3.125 MG PO BID CAD #60 TAB Furosemide (Furosemide) 20 Mg Tab 20 MG PO DAILY CHF #30 TAB Isosorbide Mononitrate ER (Isosorbide Mononitrate ER) 30 Mg Aajy 30 MG PO DAILY@07 CAD #30 TAB Lisinopril (Lisinopril) 5 Mg Tab 2.5 MG PO DAILY CAD #30 TAB Continued Medications: Aspirin (Aspirin) 81 Mg Chew 81 MG CHEW DAILY Ref 0 TAB Clopidogrel (Clopidogrel) 75 Mg Tab 75 MG PO DAILY Blood Clot Prevention #30 Ref 0 TAB (This prescription has been renewed) Discontinued Medications: Atorvastatin (Atorvastatin) 20 Mg Tab 40 MG PO BID Cholesterol Management #30 Ref 0 TAB Lisinopril (Lisinopril) 10 Mg Tab 10 MG PO DAILY #30 Ref 0 TAB Ricci Pacheco MD Nov 27, 2016 11:04 Atorvastatin (Atorvastatin) 20 Mg Tab 40 MG PO BID Cholesterol Management #30 Ref 0 TAB Lisinopril (Lisinopril) 10 Mg Tab 10 MG PO DAILY #30 Ref 0 TAB Ricci Pacheco MD Nov 27, 2016 11:04
--- NOTE | 2016-11-27 11:58 | PD.CARD.PN ---
Subjective Subjective Remarks No acute cardiac complaints. No CP/SOB. Still waiting for lifevest Objective Medications Current Medications Medications (Trade) Dose Ordered Sig/Cristine Route Start Time Stop Time Status Last Admin (NS Flush) 2 ml UNSCH PRN FLUSH 11/24/16 04:15 (NS Flush) 2 ml BID FLUSH 11/24/16 09:00 11/27/16 08:39 (Narcan Inj) 0.4 mg UNSCH PRN IV 11/24/16 04:15 (Nitrostat Sl) 0.3 mg Q5M PRN SL 11/24/16 17:45 (Morphine Inj) 5 mg Q4H PRN IV PUSH 11/24/16 17:45 (Tylenol) 325 mg Q4H PRN PO 11/25/16 15:15 (Restoril) 15 mg HS PRN PO 11/25/16 15:15 (Aspirin Chew) 81 mg DAILY PO 11/26/16 09:00 11/27/16 08:38 (Plavix) 75 mg DAILY PO 11/26/16 09:00 11/27/16 08:38 (Prinivil) 5 mg DAILY PO 11/26/16 09:00 11/27/16 08:38 (Lipitor) 80 mg HS PO 11/25/16 21:00 11/26/16 20:42 (Imdur) 30 mg DAILY@07 PO 11/26/16 07:00 11/27/16 06:15 (Lasix) 20 mg DAILY PO 11/27/16 09:00 11/27/16 08:39 (Coreg) 3.125 mg BID PO 11/27/16 21:00 Vital Signs / I&O Vital Signs Date Time Temp Pulse Resp B/P Pulse Ox O2 Delivery O2 Flow Rate FiO2 11/27/16 10:29 96 21 11/27/16 09:04 73 11/27/16 08:44 80 11/27/16 07:30 79 11/27/16 07:30 97.7 83 20 87/50 96 11/27/16 06:01 90 11/27/16 05:00 87 11/27/16 04:01 74 11/27/16 03:30 97.6 84 17 93/52 94 11/27/16 03:00 72 11/27/16 02:01 66 11/27/16 01:01 78 11/27/16 00:00 80 11/26/16 23:01 79 11/26/16 23:01 97.7 74 22 96/56 92 11/26/16 22:00 80 11/26/16 21:00 80 11/26/16 20:21 91 21 11/26/16 20:01 98.0 76 22 71/48 92 11/26/16 20:00 79 11/26/16 19:00 91 11/26/16 18:00 73 11/26/16 17:40 74 11/26/16 16:04 73 11/26/16 15:00 73 11/26/16 15:00 97.1 73 20 72/38 96 11/26/16 14:00 70 11/26/16 13:00 79 11/26/16 12:00 72 I/O 11/26/16 11/26/16 11/26/16 11/27/16 11/27/16 11/27/16 07:00 15:00 23:00 07:00 15:00 23:00 Intake Total 480 ml 880 ml 980 ml Output Total 300 ml 780 ml 1750 ml Balance 180 ml 100 ml -770 ml Intake Oral 480 ml 720 ml 480 ml IV Total 0 ml 160 ml 500 ml Output Urine Total 300 ml 780 ml 1750 ml # Voids 3 # Bowel Movements 0 0 0 Physical Exam GENERAL: Middle aged male watching TV, no distress SKIN: Warm and dry. HEAD: Normocephalic. EYES: No scleral icterus. No injection or drainage. NECK: Supple, trachea midline. No JVD or lymphadenopathy. CARDIOVASCULAR: Regular rate and rhythm without murmurs, gallops, or rubs. RESPIRATORY: Breath sounds equal bilaterally. No accessory muscle use. GASTROINTESTINAL: Abdomen soft, non-tender, nondistended. MUSCULOSKELETAL: No cyanosis, or edema. BACK: Nontender without obvious deformity. No CVA tenderness. Laboratory Laboratory Tests Test 11/27/16 05:05 White Blood Count 7.7 TH/MM3 Red Blood Count 4.11 MIL/MM3 Hemoglobin 12.5 GM/DL Hematocrit 37.2 % Mean Corpuscular Volume 90.5 FL Mean Corpuscular Hemoglobin 30.5 PG Mean Corpuscular Hemoglobin 33.7 % Concent Red Cell Distribution Width 15.3 % Platelet Count 232 TH/MM3 Mean Platelet Volume 7.5 FL Neutrophils (%) (Auto) 60.5 % Lymphocytes (%) (Auto) 21.7 % Monocytes (%) (Auto) 9.6 % Eosinophils (%) (Auto) 7.6 % Basophils (%) (Auto) 0.6 % Neutrophils # (Auto) 4.7 TH/MM3 Lymphocytes # (Auto) 1.7 TH/MM3 Monocytes # (Auto) 0.7 TH/MM3 Eosinophils # (Auto) 0.6 TH/MM3 Basophils # (Auto) 0.0 TH/MM3 CBC Comment DIFF FINAL Differential Comment Sodium Level 138 MEQ/L Potassium Level 4.3 MEQ/L Chloride Level 101 MEQ/L Carbon Dioxide Level 29.5 MEQ/L Anion Gap 8 MEQ/L Blood Urea Nitrogen 27 MG/DL Creatinine 1.10 MG/DL Estimat Glomerular Filtration 65 ML/MIN Rate Random Glucose 87 MG/DL Calcium Level 8.5 MG/DL Assessment and Plan Assessment and Plan Assessment Ischemic cardiomyopathy. NSTEMI Carotid stenosis Plan Pending Lifevest On BB, Statin, BHAVNA, diuretics. Assessment and plan discussed with Dr. Agustin. Junie Meeks Nov 27, 2016 11:58
--- NOTE | 2016-11-27 13:24 | EKG ---
Date Performed: 11/26/2016 Time Performed: 06:15:08 PTAGE: 76 years EKG: Sinus rhythm with PAC(s) Right bundle branch block Inferior/lateral ST-T changes are nonspecific Since previous t racing, no significant change noted Abnormal ECG PREVIOUS TRACING : 11/25/2016 18.09 DOCTOR: Norma Agustin Interpretating Date/Time 11/27/2016 13:23:20
--- NOTE | 2016-11-27 13:24 | EKG ---
Date Performed: 11/25/2016 Time Performed: 18:09:44 PTAGE: 76 years EKG: Sinus rhythm with PAC(s) Right bundle branch block Possible inferior infarct - age undetermined Lateral ST-T aquino ges may be due to myocardial ischemia Since previous tracing, no significant change noted Abnormal EC G PREVIOUS TRACING : 11/24/2016 21.51 DOCTOR: Norma Agustin Interpretating Date/Time 11/27/2016 13:23:35
[2016-11-27] MEDS: CARVEDILOL 6.25 MG TAB PO SCH (21:00)
[2016-11-27] MEDS: ATORVASTATIN 80 MG TAB PO SCH (21:00)
[2016-11-28] VITALS (29 sets, daily range): BP systolic 85–109; BP diastolic 53–59; PULSE 63–93; RESP 16–20; TEMP 97.4–98; O2SAT 94–95
[2016-11-28 05:23] LABS: POTASSIUM 4.5 MEQ/L (3.5-5.1)
[2016-11-28] MEDS: ISOSORBIDE MONONITRATE 30 MG TAB PO SCH (06:45)
[2016-11-28] MEDS: FUROSEMIDE 20 MG TAB PO SCH (08:37)
[2016-11-28] MEDS: CLOPIDOGREL 75 MG TAB PO SCH (08:37)
[2016-11-28] MEDS: CARVEDILOL 6.25 MG TAB PO SCH ×3 (08:38→21:00)
[2016-11-28] MEDS: SODIUM CHLORIDE 0.9% FLUSH 5 ML FLUSH FLUSH SCH ×2 (08:38→21:21)
[2016-11-28] MEDS: ASPIRIN 81 MG CHEW TAB PO SCH (08:38)
--- NOTE | 2016-11-28 08:38 | MA ---
cc: RYANN GOMEZ DATE: 11/28/2016 INDICATIONS: Non-ST elevation myocardial infarction, acute congestive heart failure. Class IV angina. Class IV congestive heart failure. PROCEDURE PERFORMED: Retrograde left heart catheterization with left ventriculography and selective coronary angiography. ACCESS SITE: Right femoral artery. EQUIPMENT USED: A 5-Kazakh pigtail catheter, 5-Kazakh JL4 and AR modified coronary artery catheters. MEDICATIONS: Versed IV. Fentanyl IV. CONTRAST: Omnipaque 75 cc. COMPLICATIONS: None. METHOD OF HEMOSTASIS: Manual compression. RESULTS A. HEMODYNAMICS: Heart rate 90 beats per minute. Left ventricular end-diastolic pressure 8 mmHg. Left ventricle 110/8. Aorta 110/51/75. B. LEFT VENTRICULOGRAPHY: Left ventricular ejection fraction 15% with very severe global hypokinesis. No mitral regurgitation. C. CORONARY ANGIOGRAPHY: The left main coronary artery is very short with technically separate ostia for the left main and left circumflex artery. The ostial LAD has 60% stenosis. Proximal LAD has 70% stenosis. Large diagonal artery, has 40% stenosis in the proximal portion. The second diagonal is patent. The left circumflex artery is a non-dominant vessel with 60% ostial stenosis. There is 50% proximal stenosis in the left circumflex artery distally to the first marginal branch. OM1 has 40% proximal stenosis. It is a large vessel. The right coronary artery is a dominant vessel with 90% stenosis in the proximal portion and total occlusion of the mid-portion with bridging collaterals. The distal right coronary artery fills via alit-pn-enipq and feqgw-bo-dmwri collaterals. DIAGNOSES: 1. Severe multivessel coronary artery disease. 2. Very severe left ventricular systolic dysfunction. DISPOSITION: Mr. Anderson will be monitored on telemetry after his procedure. We will continue medical therapy including therapy for congestive heart failure, post-MA care and aggressive modification of his cardiac risk factors. We will place a LifeVest due to his very severe left ventricular systolic dysfunction. If his left ventricular systolic dysfunction does not improve within three months, implantation of a defibrillator will then be considered. Ryann Gomez MD OQ/SSB /2:58 PM /8:21 AM [email or web address]
--- NOTE | 2016-11-28 09:19 | HHI.PR ---
Subjective Remarks Follow-up CHF, coronary artery disease. The patient denies chest pain, dyspnea, lightheadedness, dizziness, palpitations. States that he wants to go home. Objective Vitals Vital Signs Date Time Temp Pulse Resp B/P Pulse Ox O2 Delivery O2 Flow Rate FiO2 11/28/16 08:43 93 11/28/16 07:43 97.4 74 16 89/55 94 11/28/16 07:43 94 Room Air 11/28/16 07:18 93 11/28/16 06:08 74 11/28/16 05:00 63 11/28/16 04:37 98.0 75 20 95/53 95 11/28/16 04:04 79 11/28/16 03:14 63 11/28/16 02:17 78 11/28/16 01:00 83 11/28/16 00:06 83 11/27/16 23:59 97.8 78 19 94/51 94 11/27/16 23:00 71 11/27/16 22:00 74 11/27/16 21:00 77 11/27/16 20:00 74 11/27/16 20:00 97.5 74 19 99/55 93 11/27/16 19:00 75 11/27/16 17:34 75 11/27/16 16:00 73 11/27/16 15:44 97.4 94 19 140/81 93 11/27/16 15:44 75 11/27/16 13:00 77 11/27/16 12:27 86 11/27/16 11:00 73 11/27/16 11:00 97.4 67 19 113/70 94 11/27/16 10:29 96 21 11/27/16 10:00 78 I/O 11/27/16 11/27/16 11/27/16 11/28/16 11/28/16 11/28/16 07:00 15:00 23:00 07:00 15:00 23:00 Intake Total 980 ml 950 ml 960 ml Output Total 1750 ml 1700 ml 2000 ml Balance -770 ml -750 ml -1040 ml Intake Oral 480 ml 950 ml 960 ml IV Total 500 ml Output Urine Total 1750 ml 1700 ml 2000 ml # Voids 3 3 # Bowel Movements 0 1 0 Result Diagram: 11/27/16 0505 11/28/16 0433 Imaging Last Impressions Chest X-Ray 11/24/16 0226 Signed Impressions: Service Date/Time: November 02:34 - CONCLUSION: Mild edema and/or atypical infiltrates. Michael Day MD Objective Remarks General: Elderly male in no acute distress. Sitting up in a chair. Heart: Irregular rhythm. No murmur. Lungs: Clear to auscultation bilaterally. No wheezes, rales, or rhonchi. Breathing is nonlabored. Abdomen: Soft, nontender, nondistended. Extremities: No lower extremity edema. Psych: Alert and oriented. 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 Non-ST elevation NM: Appreciate cardiology recommendations. Status post cardiac catheterization on 11/25/16, which showed 70% occlusion of LAD, 40% occlusion of diagonal, 60% circumflex occlusion, and RCA 90% occlusion. At this time patient is not felt to be a candidate for CABG, but he has multivessel coronary artery disease. Ejection fraction is 15%. Per cardiology, optimize medical management. Continue Coreg, statin, aspirin, Plavix, Lasix, Imdur, lisinopril, nitroglycerin. LifeVest has been ordered. 2. Acute congestive heart failure exacerbation: Continue Lasix. Ejection fraction 15% on cardiac catheterization. 3. DVT prophylaxis: Plavix. Discharge Planning Possible discharge home today if LifeVest is authorized by the patient's insurance and delivered to the patient. Nima Lion MD Nov 28, 2016 09:19
[2016-11-28] MEDS: LISINOPRIL 5 MG TAB PO SCH (11:55)
--- NOTE | 2016-11-28 13:36 | PD.CARD.PN ---
Subjective Subjective Remarks No acute complaints, waiting for lifevest, daughters at bedsid (Junie Meeks) Objective Medications Current Medications Medications (Trade) Dose Ordered Sig/Cristine Route Start Time Stop Time Status Last Admin (NS Flush) 2 ml UNSCH PRN FLUSH 11/24/16 04:15 (NS Flush) 2 ml BID FLUSH 11/24/16 09:00 11/28/16 08:38 (Narcan Inj) 0.4 mg UNSCH PRN IV 11/24/16 04:15 (Nitrostat Sl) 0.3 mg Q5M PRN SL 11/24/16 17:45 (Morphine Inj) 5 mg Q4H PRN IV PUSH 11/24/16 17:45 (Tylenol) 325 mg Q4H PRN PO 11/25/16 15:15 (Restoril) 15 mg HS PRN PO 11/25/16 15:15 (Aspirin Chew) 81 mg DAILY PO 11/26/16 09:00 11/28/16 08:38 (Plavix) 75 mg DAILY PO 11/26/16 09:00 11/28/16 08:37 (Prinivil) 5 mg DAILY PO 11/26/16 09:00 11/28/16 11:55 (Lipitor) 80 mg HS PO 11/25/16 21:00 11/27/16 21:00 (Imdur) 30 mg DAILY@07 PO 11/26/16 07:00 11/28/16 06:45 (Lasix) 20 mg DAILY PO 11/27/16 09:00 11/28/16 08:37 (Coreg) 3.125 mg BID PO 11/27/16 21:00 11/28/16 11:55 Vital Signs / I&O Vital Signs Date Time Temp Pulse Resp B/P Pulse Ox O2 Delivery O2 Flow Rate FiO2 11/28/16 11:58 97.5 90 16 109/57 95 11/28/16 11:58 95 Room Air 11/28/16 11:00 81 11/28/16 08:43 93 11/28/16 07:43 97.4 74 16 89/55 94 11/28/16 07:43 94 Room Air 11/28/16 07:18 93 11/28/16 06:08 74 11/28/16 05:00 63 11/28/16 04:37 98.0 75 20 95/53 95 11/28/16 04:04 79 11/28/16 03:14 63 11/28/16 02:17 78 11/28/16 01:00 83 11/28/16 00:06 83 11/27/16 23:59 97.8 78 19 94/51 94 11/27/16 23:00 71 11/27/16 22:00 74 11/27/16 21:00 77 11/27/16 20:00 74 11/27/16 20:00 97.5 74 19 99/55 93 11/27/16 19:00 75 11/27/16 17:34 75 11/27/16 16:00 73 11/27/16 15:44 97.4 94 19 140/81 93 11/27/16 15:44 75 I/O 11/27/16 11/27/16 11/27/16 11/28/16 11/28/16 11/28/16 07:00 15:00 23:00 07:00 15:00 23:00 Intake Total 980 ml 950 ml 960 ml Output Total 1750 ml 1700 ml 2000 ml Balance -770 ml -750 ml -1040 ml Intake Oral 480 ml 950 ml 960 ml IV Total 500 ml Output Urine Total 1750 ml 1700 ml 2000 ml # Voids 3 3 # Bowel Movements 0 1 0 Physical Exam GENERAL: Elderly male, no distress, daughters at bedside SKIN: Warm and dry. HEAD: Normocephalic. EYES: No scleral icterus. No injection or drainage. NECK: Supple, trachea midline. No JVD or lymphadenopathy. CARDIOVASCULAR: Regular rate and rhythm without murmurs, gallops, or rubs. RESPIRATORY: Breath sounds equal bilaterally. No accessory muscle use. GASTROINTESTINAL: Abdomen soft, non-tender, nondistended. MUSCULOSKELETAL: No cyanosis, or edema. BACK: Nontender without obvious deformity. No CVA tenderness. Laboratory Laboratory Tests Test 11/28/16 04:33 Sodium Level 139 MEQ/L Potassium Level 4.5 MEQ/L Chloride Level 104 MEQ/L Carbon Dioxide Level 28.0 MEQ/L Anion Gap 7 MEQ/L Blood Urea Nitrogen 21 MG/DL Creatinine 1.04 MG/DL Estimat Glomerular Filtration 70 ML/MIN Rate Random Glucose 89 MG/DL Calcium Level 8.7 MG/DL (Junie Meeks) Assessment and Plan Assessment and Plan Assessment Ischemic cardiomyopathy. EF 15%. Diffuse CAD. NSTEMI Carotid stenosis Borderline low BP Plan Pending Lifevest. Spoke with Ashley fuller today. Pending [employer] authorization. Decrease bhavna dose On BB, Statin, BHAVNA, diuretics, Imdur Assessment and plan discussed with Dr. Agustin. (Junie Meeks) Assessment and Plan Will need LifeVest given low EF (Norma Agustin MD) Junie Meeks Nov 28, 2016 13:36 Norma Agustin MD Nov 29, 2016 15:04
[2016-11-28] MEDS ORDERED: PILL SPLITTER OTHER PRN (13:45)
[2016-11-28] MEDS: ATORVASTATIN 80 MG TAB PO SCH (21:21)
[2016-11-29] VITALS (20 sets, daily range): BP systolic 90–103; BP diastolic 54–62; PULSE 63–90; RESP 15–18; TEMP 97.5–97.8; O2SAT 94–96
[2016-11-29] MEDS: ISOSORBIDE MONONITRATE 30 MG TAB PO SCH (06:39)
[2016-11-29] MEDS: FUROSEMIDE 20 MG TAB PO SCH (08:42)
[2016-11-29] MEDS: CARVEDILOL 6.25 MG TAB PO SCH (08:42)
[2016-11-29] MEDS: CLOPIDOGREL 75 MG TAB PO SCH (08:42)
[2016-11-29] MEDS: ASPIRIN 81 MG CHEW TAB PO SCH (08:42)
[2016-11-29] MEDS: SODIUM CHLORIDE 0.9% FLUSH 5 ML FLUSH FLUSH SCH (08:44)
--- NOTE | 2016-11-29 08:51 | PD.CARD.PN ---
Subjective Subjective Remarks Blood pressures are borderline low. Patient denies associated lightheadedness or dizziness. Still pending [employer] authorization for LifeVest Objective Vital Signs / I&O Vital Signs Date Time Temp Pulse Resp B/P Pulse Ox O2 Delivery O2 Flow Rate FiO2 11/29/16 08:17 75 11/29/16 08:17 94 Room Air 11/29/16 08:17 97.5 67 18 101/58 94 11/29/16 07:24 67 11/29/16 06:33 103/62 11/29/16 06:00 90 11/29/16 05:00 68 11/29/16 04:00 77 11/29/16 03:00 74 11/29/16 03:00 97.5 74 16 90/54 94 11/29/16 03:00 94 Room Air 11/29/16 02:00 63 11/29/16 01:00 71 11/29/16 00:00 67 11/28/16 23:00 97.8 79 16 85/56 94 11/28/16 23:00 79 11/28/16 23:00 94 Room Air 11/28/16 22:00 78 11/28/16 21:00 76 11/28/16 20:00 83 11/28/16 20:00 86/53 11/28/16 20:00 94 Room Air 11/28/16 20:00 97.7 88 16 92/55 94 11/28/16 19:00 81 11/28/16 18:06 73 11/28/16 17:27 73 11/28/16 16:36 91 11/28/16 15:50 94 Room Air 11/28/16 15:50 97.8 72 20 103/59 94 11/28/16 15:00 74 11/28/16 14:00 80 11/28/16 13:00 80 11/28/16 12:00 84 11/28/16 11:58 97.5 90 16 109/57 95 11/28/16 11:58 95 Room Air 11/28/16 11:00 81 11/28/16 10:00 81 11/28/16 09:00 83 I/O 11/28/16 11/28/16 11/28/16 11/29/16 11/29/16 11/29/16 07:00 15:00 23:00 07:00 15:00 23:00 Intake Total 960 ml 840 ml 240 ml Output Total 2000 ml 750 ml 1975 ml Balance -1040 ml 90 ml -1735 ml Intake Oral 960 ml 840 ml 240 ml Output Urine Total 2000 ml 750 ml 1975 ml # Voids 3 # Bowel Movements 0 0 0 Physical Exam GENERAL: Elderly male, no distress, Up in chair eating breakfast SKIN: Warm and dry. HEAD: Normocephalic. EYES: No scleral icterus. No injection or drainage. NECK: Supple, trachea midline. No JVD or lymphadenopathy. CARDIOVASCULAR: Regular rate and rhythm without murmurs, gallops, or rubs. RESPIRATORY: Breath sounds equal bilaterally. No accessory muscle use. GASTROINTESTINAL: Abdomen soft, non-tender, nondistended. MUSCULOSKELETAL: No cyanosis, or edema. BACK: Nontender without obvious deformity. No CVA tenderness. Assessment and Plan Assessment and Plan Assessment Ischemic cardiomyopathy. EF 15%. Diffuse CAD. NSTEMI Carotid stenosis Borderline low BP Plan Pending Lifevest. Spoke with Ashley fuller today. Still pending [employer] authorization. Change hold parameters for Coreg and BHAVNA to SBP < 86 mmHg OR if the patient has symptoms of dizziness or lightheadedness On BB, Statin, BHAVNA, diuretics, Imdur Assessment and plan discussed with Dr. Agustin. Junie Meeks Nov 29, 2016 08:51
[2016-11-29] MEDS ORDERED: LISINOPRIL 5 MG TAB PO SCH (09:00)
--- NOTE | 2016-11-29 11:22 | HHI.PR ---
Subjective Remarks Awaiting LifeVest. Patient has no complaints at this time. Denies chest pain, dyspnea, lightheadedness, palpitations. Objective Vitals Vital Signs Date Time Temp Pulse Resp B/P Pulse Ox O2 Delivery O2 Flow Rate FiO2 11/29/16 11:05 70 11/29/16 10:15 72 11/29/16 09:07 71 11/29/16 08:17 75 11/29/16 08:17 94 Room Air 11/29/16 08:17 97.5 67 18 101/58 94 11/29/16 07:24 67 11/29/16 06:33 103/62 11/29/16 06:00 90 11/29/16 05:00 68 11/29/16 04:00 77 11/29/16 03:00 74 11/29/16 03:00 97.5 74 16 90/54 94 11/29/16 03:00 94 Room Air 11/29/16 02:00 63 11/29/16 01:00 71 11/29/16 00:00 67 11/28/16 23:00 97.8 79 16 85/56 94 11/28/16 23:00 79 11/28/16 23:00 94 Room Air 11/28/16 22:00 78 11/28/16 21:00 76 11/28/16 20:00 83 11/28/16 20:00 86/53 11/28/16 20:00 94 Room Air 11/28/16 20:00 97.7 88 16 92/55 94 11/28/16 19:00 81 11/28/16 18:06 73 11/28/16 17:27 73 11/28/16 16:36 91 11/28/16 15:50 94 Room Air 11/28/16 15:50 97.8 72 20 103/59 94 11/28/16 15:00 74 11/28/16 14:00 80 11/28/16 13:00 80 11/28/16 12:00 84 11/28/16 11:58 97.5 90 16 109/57 95 11/28/16 11:58 95 Room Air I/O 11/28/16 11/28/16 11/28/16 11/29/16 11/29/16 11/29/16 07:00 15:00 23:00 07:00 15:00 23:00 Intake Total 960 ml 840 ml 240 ml Output Total 2000 ml 750 ml 1975 ml Balance -1040 ml 90 ml -1735 ml Intake Oral 960 ml 840 ml 240 ml Output Urine Total 2000 ml 750 ml 1975 ml # Voids 3 # Bowel Movements 0 0 0 Result Diagram: 11/27/16 0505 11/28/16 0433 Imaging Last Impressions Chest X-Ray 11/24/16 0226 Signed Impressions: Service Date/Time: November 02:34 - CONCLUSION: Mild edema and/or atypical infiltrates. Michael Day MD Objective Remarks General: Elderly male in no acute distress. Ambulating in his room. Heart: Irregular rhythm. No murmur. Lungs: Clear to auscultation bilaterally. No wheezes, rales, or rhonchi. Breathing is nonlabored. Abdomen: Soft, nontender, nondistended. Extremities: No lower extremity edema. Psych: Alert and oriented. Procedures 11/25/16 cardiac catheterization Urinary Catheter: No Vascular Central Line Catheter: No A/P Problem List: (1) Acute pulmonary edema with congestive heart failure ICD Code: I50.1 Status: Acute (2) NSTEMI (non-ST elevated myocardial infarction) ICD Code: I21.4 Status: Acute Assessment and Plan Reviewed/updated 11/29/16. No changes. Awaiting LifeVest. 1. Non-ST elevation DE: Appreciate cardiology recommendations. Status post cardiac catheterization on 11/25/16, which showed 70% occlusion of LAD, 40% occlusion of diagonal, 60% circumflex occlusion, and RCA 90% occlusion. At this time patient is not felt to be a candidate for CABG, but he has multivessel coronary artery disease. Ejection fraction is 15%. Per cardiology, optimize medical management. Continue Coreg, statin, aspirin, Plavix, Lasix, Imdur, lisinopril, nitroglycerin. LifeVest has been ordered. 2. Acute congestive heart failure exacerbation: Continue Lasix. Ejection fraction 15% on cardiac catheterization. 3. DVT prophylaxis: Plavix. Discharge Planning Possible discharge home today if LifeVest is authorized by the patient's insurance and delivered to the patient. Nima Lion MD Nov 29, 2016 11:22
[2016-11-29] MEDS ORDERED: CARVEDILOL 3.125 MG TAB PO SCH (21:00)
== END 2016-11-29 18:32 | disposition home or self-care (01) | DRG 282 ==
LOC: PHED 02:11 → PHEDA 03:38 → HCPC 07:15
PROVIDERS: ADMIT Family Medicine; ATTEND Family Medicine
PROC: B2111ZZ Fluoroscopy of Multiple Coronary Arteries using Low Osmolar Contrast (ICD-10-PCS; 2016-11-25)
PROC: B2151ZZ Fluoroscopy of Left Heart using Low Osmolar Contrast (ICD-10-PCS; 2016-11-25)
PROC: 4A023N7 Measurement of Cardiac Sampling and Pressure, Left Heart, Percutaneous Approach (ICD-10-PCS; principal; 2016-11-25 13:45)
DX: I21.4 Non-ST elevation (NSTEMI) myocardial infarction (principal); I50.9 Heart failure, unspecified; I48.91 Unspecified atrial fibrillation; I25.119 Atherosclerotic heart disease of native coronary artery with unspecified angina pectoris; E78.5 Hyperlipidemia, unspecified; I10 Essential (primary) hypertension; I65.29 Occlusion and stenosis of unspecified carotid artery; I73.9 Peripheral vascular disease, unspecified; F17.210 Nicotine dependence, cigarettes, uncomplicated; Z86.73 Personal history of transient ischemic attack (TIA), and cerebral infarction without residual deficits
CPT/HCPCS: 51702; 71010; 80048; 80053; 80061; 81001; 82550; 83036; 83735; 83880; 84484; 85002; 85025; 85610; 85730; 93005; 93306; 93458; 96365; 96375; 96376; 99211; C1769; C1893; G0463; J1644; J1940; J2250; J3010; J7030; Q9967

== ENCOUNTER 2017-11-09 19:36 | Inpatient (IN) | payer OTHER, MEDICAID, MEDICARE ==
[2017-11-09] VITALS (12 sets, daily range): BP systolic 68–137; BP diastolic 47–96; PULSE 72–110; RESP 18–24; TEMP 99.1–101.8; O2SAT 94–96
[~2017-11-09] VITALS: Ht 177.8 cm; Wt 79.8 kg
[~2017-11-09 19:36] MED LIST changes: +ASPI-516 CHEW; -ASPI81CH CHEW; -ATOR20TA15 PO; -BACT800T5 PO; +CARV6.25 PO; +FURO20TA PO; +ISOS30TA3 PO; +LIPI80TA PO; +LISI-519 PO; -LISI10TA3 PO; -NORC5TAB PO; -WALKER WHEELS/F1 MIS
--- NOTE | 2017-11-09 20:03 | PD ---
HPI Chief Complaint: Syncope/Near-Syncope Time Seen by Provider: 19:58 Travel History International Travel<30 days: No Contact w/Intl Traveler<30days: No Traveled to known affect area: No History of Present Illness HPI patient states h/o 4 days of chills, prod cough, yellow sputum, no chest pain...but today while putting his socks on apparently he passed out, while bending down and that's what prompted today's visit denies alleviating/aggravating factors.... pcp is [facility]:denies pmhx: stroke resolved after carotid procedure, [place], PFSH Past Medical History Hx Anticoagulant Therapy: Yes (asa 81mg, plavix 75mg) Cancer: No Cardiac Catheterization: Yes Cardiovascular Problems: Yes (htn on meds) High Cholesterol: Yes Cerebrovascular Accident: Yes (tia) Coronary Artery Disease: Yes Diminished Hearing: No Endocrine: No Genitourinary: No Hypertension: Yes Immune Disorder: No Implanted Vascular Access Dvce: No Musculoskeletal: No Neurologic: No Psychiatric: No Reproductive: No Respiratory: No ?: Not Past Surgical History Other Surgery: Yes (right endarterectomy 10/2015, SINUS POLYPS REMOVED) Social History Alcohol Use: Yes (OCCASIONAL) Tobacco Use: Yes (1 PPD) Substance Use: No Allergies-Medications (Allergen,Severity, Reaction): Coded Allergies: No Known Allergies (Unverified Allergy, Unknown, 11/09/17) Reported Meds & Prescriptions Reported Meds & Active Scripts Active Clopidogrel (Clopidogrel Bisulfate) 75 Mg Tab 75 Mg PO DAILY Reported Nitroglycerin SL (Nitroglycerin) 0.4 Mg Subl 0.4 Mg SL DIRECTED PRN ONE TABLET UNDER THE TONGUE NEEDED FOR CHEST PAIN, MAY REPEAT EVERY FIVE MINUTES FOR A TOTAL OF 3 DOSES OR CALL 911 IF NO RELIEF Coricidin Hbp Cold & Flu (Chlorpheniramine-Acetaminophen) 2-325 Mg Tab 1 Tab PO BID PRN Carvedilol 12.5 Mg Tab 12.5 Mg PO DAILY Rosuvastatin (Rosuvastatin Calcium) 20 Mg Tab 20 Mg PO DAILY Aspirin 81 Mg Chew 81 Mg CHEW DAILY Review of Systems Except as stated in HPI: all other systems reviewed are Neg General / Constitutional: Positive: Chills Eyes: No: Visual changes HENT: No: Headaches Cardiovascular: No: Chest Pain or Discomfort Respiratory: Positive: Cough, Shortness of Breath Gastrointestinal: No: Abdominal Pain Genitourinary: No: Dysuria Musculoskeletal: No: Pain Skin: No Rash Neurologic: No: Weakness Psychiatric: No: Depression Endocrine: No: Polydipsia Hematologic/Lymphatic: No: Easy Bruising Physical Exam Narrative GENERAL: SKIN: Warm and dry. HEAD: Atraumatic. Normocephalic. EYES: Pupils equal and round. No scleral icterus. No injection or drainage. ENT: No nasal bleeding or discharge. Mucous membranes pink and moist. NECK: Trachea midline. No JVD. CARDIOVASCULAR: Regular rate and rhythm. RESPIRATORY: No accessory muscle use. wheezy, scattered ronchi bilaterally and good tidal volume GASTROINTESTINAL: Abdomen soft, non-tender, nondistended. MUSCULOSKELETAL: Extremities without clubbing, cyanosis, or edema. No obvious deformities. NEUROLOGICAL: Awake and alert. No obvious cranial nerve deficits. Motor grossly within normal limits. Five out of 5 muscle strength in the arms and legs. Normal speech. PSYCHIATRIC: Appropriate mood and affect; insight and judgment normal. Data Data Last Documented VS Vital Signs Date Time Temp Pulse Resp B/P (MAP) Pulse Ox O2 Delivery O2 Flow Rate FiO2 11/09/17 20:44 100 20 94 11/09/17 20:41 101.8 136/63 (87) 11/09/17 20:04 Room Air Orders Orders Electrocardiogram (11/09/17 20:03) Complete Blood Count With Diff (11/09/17 20:03) Comprehensive Metabolic Panel (11/09/17 20:03) Ckmb (Isoenzyme) Profile (11/09/17 20:03) Troponin I (11/09/17 20:03) B-Type Natriuretic Peptide (11/09/17 20:03) Prothrombin Time / Inr (Pt) (11/09/17 20:03) Act Partial Throm Time (Ptt) (11/09/17 20:03) Influenzae A/B Antigen (11/09/17 20:03) Chest, Single Ap (11/09/17 20:03) Iv Access Insert/Monitor (11/09/17 20:03) Ecg Monitoring (11/09/17 20:03) Oximetry (11/09/17 20:03) Methylprednisolone So Succ Inj (Solumedr (11/09/17 20:15) Albuterol Neb (Albuterol Neb) (11/09/17 20:15) Ibuprofen (Motrin) (11/09/17 20:30) Acetaminophen (Tylenol) (11/09/17 20:30) CKMB (11/09/17 20:15) CKMB% (11/09/17 20:15) Ct Brain W/O Iv Contrast(Rout) (11/09/17 20:50) Furosemide Inj (Lasix Inj) (11/09/17 22:00) Ceftriaxone Inj (Rocephin Inj) (11/09/17 22:00) Azithromycin Inj (Zithromax Inj) (11/09/17 22:00) Admit Order (Ed Use Only) (11/09/17 21:19) Labs Laboratory Tests Test 11/09/17 20:15 White Blood Count 5.8 TH/MM3 Red Blood Count 4.57 MIL/MM3 Hemoglobin 14.4 GM/DL Hematocrit 43.4 % Mean Corpuscular Volume 95.0 FL Mean Corpuscular Hemoglobin 31.5 PG Mean Corpuscular Hemoglobin Concent 33.1 % Red Cell Distribution Width 13.5 % Platelet Count 139 TH/MM3 Mean Platelet Volume 6.8 FL Neutrophils (%) (Auto) 71.6 % Lymphocytes (%) (Auto) 13.0 % Monocytes (%) (Auto) 10.6 % Eosinophils (%) (Auto) 2.4 % Basophils (%) (Auto) 2.4 % Neutrophils # (Auto) 4.2 TH/MM3 Lymphocytes # (Auto) 0.7 TH/MM3 Monocytes # (Auto) 0.6 TH/MM3 Eosinophils # (Auto) 0.1 TH/MM3 Basophils # (Auto) 0.1 TH/MM3 CBC Comment DIFF FINAL Differential Comment Prothrombin Time 10.5 SEC Prothromb Time International Ratio 1.0 RATIO Activated Partial Thromboplast Time 28.0 SEC Blood Urea Nitrogen 24 MG/DL Creatinine 1.10 MG/DL Random Glucose 99 MG/DL Total Protein 7.2 GM/DL Albumin 3.5 GM/DL Calcium Level 8.4 MG/DL Alkaline Phosphatase 69 U/L Aspartate Amino Transf (AST/SGOT) 29 U/L Alanine Aminotransferase (ALT/SGPT) 25 U/L Total Bilirubin 0.5 MG/DL Sodium Level 136 MEQ/L Potassium Level 4.2 MEQ/L Chloride Level 100 MEQ/L Carbon Dioxide Level 29.6 MEQ/L Anion Gap 6 MEQ/L Estimat Glomerular Filtration Rate 65 ML/MIN Total Creatine Kinase 150 U/L Creatine Kinase MB 1.3 NG/ML Troponin I 0.93 NG/ML B-Type Natriuretic Peptide 549 PG/ML MDM Medical Decision Making Medical Screen Exam Complete: Yes Emergency Medical Condition: Yes Medical Record Reviewed: Yes Interpretation(s) sinus tach, frequent pvc's, rbbb, no stemi pattern Differential Diagnosis chf v pna v flu v atypical stemi v vasovagal syncope v anemia v pulm edema Narrative Course patient was initially being admitted to hospitalist for chf and r/o mi and further evaluation of his syncope...however, shortly after admitting to hospitalist, patient became hypotensive with sbp 70's, mentation intact for patient and hr only increased to 105 or so sinus tach rhythm....nitin was placed on dopamine, however during the time he was on his pvc's increased in rate, so at that time changed to neosynephrine drip instead, which maintained sbp with decreased in pvc's to occasional Critical Care Narrative CRITICAL CARE NOTE: With evaluation of the patient, labs, EKG, receipt of radiologic studies, administration of medications, reevaluation the patient and discussion of the patient with the admitting physicians, the total critical care time was [45] minutes. Time to perform other separately billable procedures was not included in the critical care time. Diagnosis Primary Impression: NSTEMI (non-ST elevated myocardial infarction) Additional Impressions: hypotension syncope suspected pneumonia Admitting Information Admitting Physician Requests: Rubén Petersen MD Nov 09, 2017 20:03
[2017-11-09] MEDS ORDERED: methylPREDNISolone SOD SUCC 125 MG/2 ML VIAL IV PUSH ONE (20:15)
[2017-11-09 20:22] LABS: AUTOMATED NEUTROPHIL # 4.2 TH/MM3 (1.8-7.7); BASOPHIL # 0.1 TH/MM3 (0-0.2); BASOPHIL % 2.4 % (0.0-2.0); EOSINOPHIL # 0.1 TH/MM3 (0-0.4); EOSINOPHIL % 2.4 % (0.0-4.0); HEMATOCRIT 43.4 % (39.0-51.0); HEMOGLOBIN 14.4 GM/DL (13.0-17.0); LYMPHOCYTE # 0.7 TH/MM3 (1.0-4.8); MEAN CORPUSCULAR HEMOGLOBIN 31.5 PG (27.0-34.0); MEAN CORPUSCULAR HGB CONC 33.1 % (32.0-36.0); MEAN PLATELET VOLUME 6.8 FL (7.0-11.0); MONO % 10.6 % (0.0-8.0); MONOCYTE # 0.6 TH/MM3 (0-0.9); NEUT % 71.6 % (16.0-70.0); PLATELET COUNT 139 TH/MM3 (150-450); RED BLOOD COUNT 4.57 MIL/MM3 (4.50-5.90); RED CELL DISTRIBUTION WIDTH 13.5 % (11.6-17.2); WHITE BLOOD COUNT 5.8 TH/MM3 (4.0-11.0)
[2017-11-09] MEDS ORDERED: CARV12.52 PO (20:28)
[2017-11-09] MEDS ORDERED: ROSU1TAB8 PO (20:28)
[2017-11-09] MEDS ORDERED: ACETAMINOPHEN 325 MG TAB PO ONE (20:30)
[2017-11-09] MEDS ORDERED: IBUPROFEN 600 MG TAB PO ONE (20:30)
[2017-11-09] MEDS ORDERED: CORITAB2 PO (20:31)
[2017-11-09 20:32] LABS: CHLORIDE 100 MEQ/L (98-107); SODIUM (NA) 136 MEQ/L (136-145)
[2017-11-09] MEDS ORDERED: NITR1SUB3 SL (20:32)
[2017-11-09 20:35] LABS: CALCIUM 8.4 MG/DL (8.5-10.1)
[2017-11-09 20:36] LABS: ALBUMIN 3.5 GM/DL (3.4-5.0); BICARBONATE 29.6 MEQ/L (21.0-32.0); BLOOD UREA NITROGEN 24 MG/DL (7-18); GLUCOSE,RANDOM 99 MG/DL (74-106)
[2017-11-09 20:38] LABS: PROTHROMBIN TIME - PATIENT 10.5 SEC (9.8-11.6)
[2017-11-09 20:39] LABS: ALT (GPT) 25 U/L (12-78); AST (GOT) 29 U/L (15-37); GLOMERULAR FILTRATION RATE 65 ML/MIN (>89)
[2017-11-09 20:40] LABS: TOTAL BILIRUBIN ADULT 0.5 MG/DL (0.2-1.0); TOTAL PROTEIN 7.2 GM/DL (6.4-8.2)
[2017-11-09 20:42] LABS: ALKALINE PHOSPHATASE 69 U/L (45-117)
[2017-11-09] MEDS: RESP: ALBUTEROL 2.5 MG/3 ML NEB (SCH) INH ×2 (20:42→20:52)
[2017-11-09 20:48] LABS: TROPONIN I 0.93 NG/ML (0.02-0.05)
[2017-11-09] MEDS ORDERED: SODIUM CHLORIDE 0.9% FLUSH 10 ML FLUSH IV FLUSH PRN ×2 (21:30→22:00)
[2017-11-09] MEDS ORDERED: NALOXONE HCL 0.4 MG/ML AMP IV PUSH PRN (21:30)
--- NOTE | 2017-11-09 21:32 | RADRPT ---
EXAM DATE/TIME: 11/09/2017 21:08 [facility] COMPARISON: CT BRAIN W/O CONTRAST, November 08, 2015, 14:33. INDICATIONS : Syncopal episode today. RADIATION DOSE: 56.69 CTDIvol (mGy) MEDICAL HISTORY : Hypertension. Cardiovascular disease SURGICAL HISTORY : Rt endartectomy, sinus polyps removed ENCOUNTER: Initial ACUITY: 1 day PAIN SCALE: 0/10 LOCATION: cranial TECHNIQUE: Multiple contiguous axial images were obtained of the head. Using automated exposure control and adj ustment of the mA and/or kV according to patient size, radiation dose was kept as low as reasonably a chievable to obtain optimal diagnostic quality images. DICOM format image data is available electro nically for review and comparison. FINDINGS: CEREBRUM: The ventricles are normal for age. No evidence of midline shift, mass lesion, hemorrhage or acute in farction. No extra-axial fluid collections are seen. POSTERIOR FOSSA: The cerebellum and brainstem are intact. The 4th ventricle is midline. The cerebellopontine angle i s unremarkable. EXTRACRANIAL: The visualized portion of the orbits is intact. Mucosal thickening involving the ethmoid air cells bi laterally as well as the sphenoid sinuses bilaterally and right maxillary sinus. No air-fluid levels. SKULL: The calvaria is intact. No evidence of skull fracture. CONCLUSION: 1. No acute intracranial abnormality. 2. Chronic paranasal sinus disease. Sarthak Gary Jr., MD on November 09, 2017 at 21:29 Board Certified Radiologist. This report was verified electronically.
--- NOTE | 2017-11-09 21:32 | RADRPT ---
EXAM DATE/TIME: 11/09/2017 21:16 [facility] COMPARISON: CHEST SINGLE AP, November 24, 2016, 2:34. INDICATIONS : Cough and short of breath for two days. MEDICAL HISTORY : None. SURGICAL HISTORY : None. ENCOUNTER: Initial ACUITY: 2 days PAIN SCORE: 0/10 LOCATION: Bilateral chest FINDINGS: A single view of the chest demonstrates the lungs to be symmetrically aerated without evidence of mas s, infiltrate or effusion. The cardiomediastinal contours are unremarkable. Osseous structures are intact. CONCLUSION: No acute disease. Sarthak Gary Jr., MD on November 09, 2017 at 21:30 Board Certified Radiologist. This report was verified electronically.
--- NOTE | 2017-11-09 21:44 | EKG ---
Date Performed: 11/09/2017 Time Performed: 20:27:22 PTAGE: 77 years EKG: Sinus rhythm WITH FREQUENT VENTRICULAR PREMATURE COMPLEXES RIGHT BUNDLE BRANCH BLOCK Nonspecific ST and T wave ab normalities ABNORMAL ECG Compared to prior electrocardiogram, Premature ventricular contractions are now present PREVIOUS TRACING : 11/26/2016 06.15 DOCTOR: Nacho Blas Interpretating Date/Time 11/09/2017 21:43:49
[2017-11-09] MEDS ORDERED: SODIUM CHLORID 0.9% 500 ML INJ 500 ML IV ONE (21:45)
[2017-11-09] MEDS ORDERED: MISCELLANEOUS NURSING INFORMATION XX SCH (22:00)
[2017-11-09] MEDS ORDERED: CHLORHEXIDINE GLUCONATE 2 % 1 PACK (2 CLOTHS) TOP PRN (22:00)
[2017-11-09] MEDS ORDERED: TERBUTALINE INJ 1 MG/ML AMP SQ PRN ×2 (22:00→23:15)
[2017-11-09] MEDS ORDERED: cefTRIAXone INJ 1,000 MG in SODIUM CHLORIDE 0.9% INJ 100 ML IV ONE (22:00)
[2017-11-09] MEDS ORDERED: DOPamine INJ PREMIX 500 ML IV PRN (22:00)
[2017-11-09] MEDS ORDERED: AZITHROMYCIN INJ 500 MG in SODIUM CHLOR 0.9% 250 ML INJ 250 ML IV ONE (22:00)
[2017-11-09] MEDS ORDERED: RESP: ALBUTEROL 2.5 MG/IPRATROPIUM 0.5 MG NEB (PRN) NEB (22:00)
[2017-11-09] MEDS ORDERED: FUROSEMIDE 20 MG/2 ML VIAL IVP ONE (22:00)
--- NOTE | 2017-11-09 23:07 | HHI.HP ---
[facility] Service Critical Care Medicine Primary Care Physician Non-Staff Admission Diagnosis BILATERAL PNA V CHF, ELEVATED TROPONIN Diagnosis: Travel History International Travel<30 Days: No Contact w/Intl Traveler <30 Da: No Traveled to Known Affected Are: No History of Present Illness 77-year-old gentleman presents with complaints of 4 days of chills productive cough, yellowish sputum. He denies any chest pain fever or chills or shortness of breath. Today when he was trying to put on his socks and bend over he passed out. Review of Systems Constitutional: COMPLAINS OF: Fatigue, Fever, Chills, DENIES: Diaphoretic episodes, Weight gain, Weight loss, Dizziness, Change in appetite, Night Sweats Eyes: DENIES: Blurred vision, Diplopia, Eye inflammation, Eye pain, Vision loss , Photosensitivity, Double Vision Ears, nose, mouth, throat: COMPLAINS OF: Vertigo, DENIES: Tinnitus, Hearing loss, Nasal discharge, Oral lesions, Throat pain, Hoarseness, Ear Pain, Running Nose, Epistaxis, Sinus Pain, Toothache, Odynophagia Respiratory: DENIES: Apneas, Cough, Snoring, Wheezing, Hemoptysis, Sputum production, Shortness of breath Cardiovascular: DENIES: Chest pain, Palpitations, Syncope, Dyspnea on Exertion , PND, Lower Extremity Edema, Orthopnea, Claudication Gastrointestinal: DENIES: Abdominal pain, Black stools, Bloody stools, Constipation, Diarrhea, Nausea, Vomiting, Difficulty Swallowing, Anorexia Genitourinary: DENIES: Sexual dysfunction, Urinary frequency, Urinary incontinence, Urgency, Hematuria, Dysuria, Nocturia, Penile Discharge, Testicular Pain, Testicular Swelling Musculoskeletal: DENIES: Joint pain, Muscle aches, Stiffness, Joint Swelling, Back pain, Neck pain Integumentary: DENIES: Abnormal pigmentation, Nail changes, Pruritus, Rash Hematologic/lymphatic: DENIES: Bruising, Lymphadenopathy Immunologic/allergic: DENIES: Eczema, Urticaria Neurologic: DENIES: Abnormal gait, Headache, Localized weakness, Paresthesias, Seizures, Speech Problems, Tremor, Poor Balance Psychiatric: DENIES: Anxiety, Confusion, Mood changes, Depression, Hallucinations, Agitation, Suicidal Ideation, Homicidal Ideation, Delusions Past Family Social History Allergies: Coded Allergies: No Known Allergies (Unverified Allergy, Unknown, 11/09/17) Past Medical History Positive for hypertension. Dyslipidemia. Transient ischemic attack. Peripheral vascular disease. Right endarterectomy . Past Surgical History Carotid endarterectomy Reported Medications Reported Meds & Active Scripts Active Clopidogrel (Clopidogrel Bisulfate) 75 Mg Tab 75 Mg PO DAILY Reported Nitroglycerin SL (Nitroglycerin) 0.4 Mg Subl 0.4 Mg SL DIRECTED PRN ONE TABLET UNDER THE TONGUE NEEDED FOR CHEST PAIN, MAY REPEAT EVERY FIVE MINUTES FOR A TOTAL OF 3 DOSES OR CALL 911 IF NO RELIEF Coricidin Hbp Cold & Flu (Chlorpheniramine-Acetaminophen) 2-325 Mg Tab 1 Tab PO BID PRN Carvedilol 12.5 Mg Tab 12.5 Mg PO DAILY Rosuvastatin (Rosuvastatin Calcium) 20 Mg Tab 20 Mg PO DAILY Aspirin 81 Mg Chew 81 Mg CHEW DAILY Active Ordered Medications Current Medications Medications (Trade) Dose Ordered Sig/Cristine Route PRN Reason Start Time Stop Time Status Last Admin Dose Admin Furosemide (Lasix Inj) 20 mg BID@,18 IV PUSH 11/10/17 09:00 Naloxone HCl (Narcan Inj) 0.4 mg UNSCH PRN IV PUSH SEE LABEL COMMENTS 11/09/17 21:30 Ceftriaxone Sodium 1000 mg/ Sodium Chloride 100 ml @ 200 mls/hr Q24H IV 11/10/17 20:00 Azithromycin (Zithromax) 500 mg DAILY PO 11/10/17 09:00 Dopamine HCl/ Dextrose 500 ml @ 0 mls/hr TITRATE PRN IV Blood Pressure Management 11/09/17 22:00 11/09/17 22:32 Terbutaline Sulfate (Brethine Inj) 1 mg UNSCH PRN SQ For Extravasation 11/09/17 22:00 Phenylephrine HCl 40 mg/Dextrose 500 ml @ 30 mls/hr TITRATE PRN IV Blood pressure management 11/09/17 23:15 Terbutaline Sulfate (Brethine Inj) 1 mg UNSCH PRN SQ For Extravasation 11/09/17 23:15 Sodium Chloride 1,000 ml @ 84 mls/hr [id number] IV 11/10/17 03:11 11/10/17 04:13 Sodium Chloride (NS Flush) 2 ml UNSCH PRN IV FLUSH FLUSH AFTER USING IV ACCESS 11/10/17 03:15 11/10/17 04:13 Sodium Chloride (NS Flush) 2 ml BID IV FLUSH 11/10/17 09:00 Acetaminophen (Tylenol) 650 mg Q6H PRN PO PAIN 1-10 AND/OR FEVER >101F 11/10/17 03:15 Famotidine (Pepcid Inj) 20 mg Q12HR IV PUSH 11/10/17 09:00 Ondansetron HCl (Zofran Inj) 4 mg Q6H PRN IV PUSH NAUSEA OR VOMITING 11/10/17 03:15 Zolpidem Tartrate (Ambien) 5 mg HS PRN PO INSOMNIA 11/10/17 03:15 Albuterol/ Ipratropium (Duoneb Neb) 1 ampule Q6HR NEB INH 11/10/17 04:00 Albuterol/ Ipratropium (Duoneb Neb) 1 ampule Q2HR NEB PRN INH WHEEZING 11/10/17 03:15 Heparin Sodium (Porcine) (Heparin Inj) 5,000 units Q8H SQ 11/10/17 03:15 11/10/17 04:14 Miscellaneous Information 1 [id number] XX 11/10/17 03:15 Chlorhexidine Gluconate (Chlorhexidine 2% Cloth) 3 pack Taper DAILY@04 TOP 11/10/17 04:00 11/06/18 03:59 Chlorhexidine Gluconate (Chlorhexidine 2% Cloth) 3 pack UNSCH PRN TOP HYGIENIC CARE 11/10/17 03:15 Senna/Docusate Sodium (Anna-Colace) 1 tab BID PO 11/10/17 09:00 Magnesium Hydroxide (Milk Of Magnesia Liq) 30 ml Q12H PRN PO Mild constipation 11/10/17 03:15 Sennosides (Senokot) 17.2 mg Q12H PRN PO Moderate constipation 11/10/17 03:15 Bisacodyl (Dulcolax Supp) 10 mg DAILY PRN RECTAL SEVERE CONSITIPATION/ IF NPO 11/10/17 03:15 Lactulose (Lactulose Liq) 30 ml DAILY PRN PO SEVERE CONSITIPATION/ IF PO 11/10/17 03:15 Piperacillin Sod/ Tazobactam Sod 100 ml @ 200 mls/hr Q6H IV 11/10/17 03:30 11/10/17 04:14 Azithromycin 500 mg/Sodium Chloride 250 ml @ 250 mls/hr Q24H IV 11/10/17 22:00 Family History Father probably of a heart attack. Social History The patient smokes one pack per day. He drinks alcohol occasionally. Physical Exam Vital Signs Vital Signs Date Time Temp Pulse Resp B/P (MAP) Pulse Ox O2 Delivery O2 Flow Rate FiO2 11/09/17 22:46 99.1 93 18 87/47 (60) 96 Nasal Cannula 2.00 11/09/17 22:32 92 97/55 11/09/17 22:16 96 Nasal Cannula 2.00 11/09/17 22:16 88 18 74/57 (63) 96 Nasal Cannula 2.00 11/09/17 21:50 72 20 92/64 (73) 11/09/17 21:35 110 20 72/58 (63) 96 11/09/17 21:33 108 18 68/59 (62) 96 11/09/17 21:23 20 11/09/17 21:23 20 11/09/17 20:44 100 20 94 11/09/17 20:41 101.8 105 24 136/63 (87) 94 11/09/17 20:04 95 Room Air 11/09/17 19:42 100.8 105 20 137/96 (110) Physical Exam GENERAL: Well-nourished, well-developed patient. SKIN: Warm and dry. HEAD: Normocephalic. EYES: No scleral icterus. No injection or drainage. NECK: Supple, trachea midline. No JVD or lymphadenopathy. CARDIOVASCULAR: Regular rate and rhythm without murmurs, gallops, or rubs. RESPIRATORY: Breath sounds equal bilaterally. No accessory muscle use. GASTROINTESTINAL: Abdomen soft, non-tender, nondistended. MUSCULOSKELETAL: No cyanosis, or edema. BACK: Nontender without obvious deformity. NEURO EXAM: GCS: 15 Mental Status: The patient is alert and oriented to person, place, and time with normal speech Laboratory Laboratory Tests Test 11/09/17 20:15 11/09/17 21:55 White Blood Count 5.8 Red Blood Count 4.57 Hemoglobin 14.4 Hematocrit 43.4 Mean Corpuscular Volume 95.0 Mean Corpuscular Hemoglobin 31.5 Mean Corpuscular Hemoglobin Concent 33.1 Red Cell Distribution Width 13.5 Platelet Count 139 Mean Platelet Volume 6.8 Neutrophils (%) (Auto) 71.6 Lymphocytes (%) (Auto) 13.0 Monocytes (%) (Auto) 10.6 Eosinophils (%) (Auto) 2.4 Basophils (%) (Auto) 2.4 Neutrophils # (Auto) 4.2 Lymphocytes # (Auto) 0.7 Monocytes # (Auto) 0.6 Eosinophils # (Auto) 0.1 Basophils # (Auto) 0.1 CBC Comment DIFF FINAL Differential Comment Prothrombin Time 10.5 Prothromb Time International Ratio 1.0 Activated Partial Thromboplast Time 28.0 Blood Urea Nitrogen 24 Creatinine 1.10 Random Glucose 99 Total Protein 7.2 Albumin 3.5 Calcium Level 8.4 Alkaline Phosphatase 69 Aspartate Amino Transf (AST/SGOT) 29 Alanine Aminotransferase (ALT/SGPT) 25 Total Bilirubin 0.5 Sodium Level 136 Potassium Level 4.2 Chloride Level 100 Carbon Dioxide Level 29.6 Anion Gap 6 Estimat Glomerular Filtration Rate 65 Total Creatine Kinase 150 Creatine Kinase MB 1.3 Troponin I 0.93 B-Type Natriuretic Peptide 549 Lactic Acid Level 1.5 Date/Time Source Procedure Growth Status 11/09/17 21:45 Blood Peripheral Aerobic Blood Culture Pending Received 11/09/17 21:45 Blood Peripheral Anaerobic Blood Culture Pending Received 11/09/17 20:15 Nasal Washing Influenza Types A,B Antigen (NICOLE) - Final NEGATIVE FOR FLU A AND B ANTIGEN.... Complete Result Diagram: 11/09/17201411/09/172014 Imaging Last [address] 11/09/172049 Signed Impressions: Service Date/Time: October 21:08 - CONCLUSION: 1. No acute intracranial abnormality. 2. Chronic paranasal sinus disease. Sarthak Gary Jr., MD Chest X-Ray 11/09/172002 Signed Impressions: Service Date/Time: October 21:16 - CONCLUSION: No acute disease. Sarthak Gary Jr., MD Septic Shock Reassessment Septic shock perfusion: reassessment completed Caprini VTE Risk Assessment Caprini VTE Risk Assessment: Mod/High Risk (score >= 2) Caprini Risk Assessment Model Point Value = 1 Point Value = 2 Point Value = 3 Point Value = 5 Age 41-60 Minor surgery BMI > 25 kg/m2 Swollen legs Varicose veins or History of unexplained or recurrent spontaneous Oral contraceptives or hormone replacement Sepsis (< 1 month) Serious lung disease, including pneumonia (< 1 month) Abnormal pulmonary function Acute myocardial infarction Congestive heart failure (< 1 month) History of inflammatory bowel disease Medical patient at bed rest Age 61-74 Arthroscopic surgery Major open surgery (> 45 min) Laparoscopic surgery (> 45 min) Malignancy Confined to bed (> 72 hours) Immobilizing plaster cast Central venous access Age >= 75 History of VTE Family history of VTE Factor V Leiden Prothrombin [id number] Lupus anticoagulant Anticardiolipin antibodies Elevated serum homocysteine Heparin-induced thrombocytopenia Other congenital or acquired thrombophilia Stroke (< 1 month) Elective arthroplasty Hip, pelvis, or leg fracture Acute spinal cord injury (< 1 month) Prophylaxis Regimen Total Risk Factor Score Risk Level Prophylaxis Regimen 0-1 Low Early ambulation 2 Moderate Order ONE of the following: *Sequential Compression Device (SCD) *Heparin 5000 units SQ BID 3-4 Higher Order ONE of the following medications: *Heparin 5000 units SQ TID *Enoxaparin/Lovenox 40 mg SQ daily (WT < 150 kg, CrCl > 30 mL/min) *Enoxaparin/Lovenox 30 mg SQ daily (WT < 150 kg, CrCl > 10-29 mL/min) *Enoxaparin/Lovenox 30 mg SQ BID (WT < 150 kg, CrCl > 30 mL/min) AND/OR *Sequential Compression Device (SCD) 5 or more Highest Order ONE of the following medications: *Heparin 5000 units SQ TID (Preferred with Epidurals) *Enoxaparin/Lovenox 40 mg SQ daily (WT < 150 kg, CrCl > 30 mL/min) *Enoxaparin/Lovenox 30 mg SQ daily (WT < 150 kg, CrCl > 10-29 mL/min) *Enoxaparin/Lovenox 30 mg SQ BID (WT < 150 kg, CrCl > 30 mL/min) AND *Sequential Compression Device (SCD) Assessment and Plan Assessment and Plan Syncope - Ultrasound carotid - 2-D echo - Telemetry - Series of troponin and EKGs - Neurology consultation Pneumonia - Broad-spectrum antibiotics - Blood cultures urine cultures - De-escalate per sensitivity - Urine antigens Hypotension - IV fluids resuscitation - Dopamine when necessary to keep MAP above 65 DVT GI prophylaxis - Teds SCDs - Subcutaneous heparin - Pepcid Critical Care: The total critical care time was 35 minutes. Time to perform other separately billable procedures was not included in the critical care time. Ryan Shaffer MD Nov 09, 2017 11:07 pm
[2017-11-09] MEDS ORDERED: PHENYLEPHRINE INJ 40 MG in DEXTROSE 5% IN WATE 500 ML INJ 496 ML IV PRN ×2 (23:15)
[2017-11-09 23:23] LABS: BILIRUBIN, URINE NEG (NEG); BLOOD, URINE MOD (NEG); GLUCOSE,URINE NEG (NEG); KETONE, URINE NEG (NEG); NITRITE,URINE NEG (NEG); PH, URINE 5.5 (5.0-8.5); URINE LEUKOCYTE ESTERASE NEG (NEG)
[2017-11-09 23:26] LABS: URINE COLOR YELLOW (YELLW/STRAW)
[2017-11-09 23:27] LABS: SQUAMOUS EPITHELIAL CELL URINE 0-5 /hpf (0-5); WBC, URINE 0-2 /hpf (0-5)
[2017-11-10] VITALS (18 sets, daily range): BP systolic 110–181; BP diastolic 53–86; PULSE 57–91; RESP 18–23; TEMP 97.5–98.5; O2SAT 95–99
[2017-11-10 02:23] LABS: AUTOMATED NEUTROPHIL # 4.5 TH/MM3 (1.8-7.7); BASOPHIL % 0.5 % (0.0-2.0); EOSINOPHIL % 0.1 % (0.0-4.0); HEMATOCRIT 41.1 % (39.0-51.0); LYMPHOCYTE # 0.3 TH/MM3 (1.0-4.8); MEAN CELL VOLUME 96.7 FL (80.0-100.0); MEAN CORPUSCULAR HEMOGLOBIN 32.9 PG (27.0-34.0); MEAN CORPUSCULAR HGB CONC 34.1 % (32.0-36.0); MONO % 5.2 % (0.0-8.0); MONOCYTE # 0.3 TH/MM3 (0-0.9); NEUT % 88.2 % (16.0-70.0); PLATELET COUNT 116 TH/MM3 (150-450); RED BLOOD COUNT 4.26 MIL/MM3 (4.50-5.90); RED CELL DISTRIBUTION WIDTH 14.1 % (11.6-17.2); WHITE BLOOD COUNT 5.1 TH/MM3 (4.0-11.0)
[2017-11-10 02:36] LABS: BICARBONATE 27.4 MEQ/L (21.0-32.0); CALCIUM 8.1 MG/DL (8.5-10.1); CREATININE 1.05 MG/DL (0.60-1.30)
[2017-11-10] MEDS ORDERED: MISCELLANEOUS NURSING INFORMATION XX SCH (03:15)
[2017-11-10] MEDS ORDERED: ONDANSETRON HCL 4 MG/2 ML VIAL IV PUSH PRN (03:15)
[2017-11-10] MEDS ORDERED: RESP: ALBUTEROL 2.5 MG/IPRATROPIUM 0.5 MG NEB (PRN) INH (03:15)
[2017-11-10] MEDS ORDERED: LACTULOSE SYRUP 20 GM/30 ML CUP PO PRN (03:15)
[2017-11-10] MEDS ORDERED: ACETAMINOPHEN 325 MG TAB PO PRN (03:15)
[2017-11-10] MEDS ORDERED: CHLORHEXIDINE GLUCONATE 2 % 1 PACK (2 CLOTHS) TOP PRN (03:15)
[2017-11-10] MEDS ORDERED: BISACODYL 10 MG SUPP RECTAL PRN (03:15)
[2017-11-10] MEDS ORDERED: SENNOSIDES 8.6 MG TAB PO PRN (03:15)
[2017-11-10] MEDS ORDERED: MAGNESIUM HYDROXIDE SUSP 30 ML CUP PO PRN (03:15)
[2017-11-10] MEDS ORDERED: SODIUM CHLORIDE 0.9% FLUSH 10 ML FLUSH IV FLUSH PRN (03:15)
[2017-11-10 03:36] LABS: TROPONIN I 0.85 NG/ML (0.02-0.05)
[2017-11-10] MEDS ORDERED: CHLORHEXIDINE GLUCONATE 2 % 1 PACK (2 CLOTHS) TOP SCH (04:00)
[2017-11-10] MEDS: CHLORHEXIDINE GLUCONATE 2 % 1 PACK (2 CLOTHS) TOP SCH (04:00)
[2017-11-10] MEDS: RESP: ALBUTEROL 2.5 MG/IPRATROPIUM 0.5 MG NEB (SCH) INH ×4 (04:00→22:16)
[2017-11-10] MEDS: SODIUM CHLOR 0.9% 1000 ML INJ 1,000 ML IV SCH ×2 (04:13→15:06)
[2017-11-10] MEDS: HEPARIN SODIUM - SQ 10,000 UNITS/ML VIAL SQ SCH ×3 (04:14→21:03)
[2017-11-10] MEDS: PIPERACIL-TAZO 4.5 GM PREMIX 100 ML IV SCH ×4 (04:14→21:02)
--- NOTE | 2017-11-10 05:06 | RADRPT ---
EXAM DATE/TIME: 11/10/2017 03:41 [facility] COMPARISON: CHEST SINGLE AP, November 09, 2017, 21:16. INDICATIONS : Evaluate for pneumonia. MEDICAL HISTORY : None. SURGICAL HISTORY : None. ENCOUNTER: Subsequent ACUITY: 2 days PAIN SCORE: Non-responsive. LOCATION: chest FINDINGS: Mild platelike airspace disease at the right lung base. Cardiomediastinal contours are within normal limits. Remainder of the exam is unchanged. CONCLUSION: 1. Mild right lung base atelectasis. Catrachito Ospina MD on November 10, 2017 at 5:04 Board Certified Radiologist. This report was verified electronically.
[2017-11-10] MEDS: FUROSEMIDE 20 MG/2 ML VIAL IV PUSH SCH ×2 (08:29→18:39)
[2017-11-10] MEDS: FAMOTIDINE 20 MG/2 ML VIAL IV PUSH SCH ×2 (08:31→21:03)
[2017-11-10] MEDS: DOCUSATE SODIUM 50 MG/SENNA 8.6 MG TAB PO SCH ×2 (08:32→21:03)
[2017-11-10] MEDS ORDERED: SODIUM CHLORIDE 0.9% FLUSH 10 ML FLUSH IV FLUSH SCH ×2 (09:00)
[2017-11-10] MEDS ORDERED: AZITHROMYCIN 250 MG TAB PO SCH (09:00)
[2017-11-10] MEDS ORDERED: GADODIAMIDE PF 287 MG/ML 20 ML VIAL (for RAD MRI) IVCONTRAST ONE (10:01)
--- NOTE | 2017-11-10 10:31 | RADRPT ---
EXAM DATE/TIME: 11/10/2017 08:04 [facility] COMPARISON: CTA CAROTID ARTERIES W 3D RECON, November 09, 2015, 11:49. US CAROTID ARTERIES, November 08, 2015, 18: 47. EXTERNAL COMPARISON : [facility], CTA CAROTIDS, October 30, 2017[facility], US CAROTIDS, September. INDICATIONS : Transient ischemic attack. MEDICAL HISTORY : Hypercholesterolemia. Hypertension. Myocardial infarction. Transient ischemic attack. Numbness. Coron madalyn artery disease. Congestive hearrt failure. SURGICAL HISTORY : Cardiac catheterization. Right endarterectomy. Sinus polyps removed. ENCOUNTER: Subsequent ACUITY: 1 day PAIN SCORE: 11/01 LOCATION: Bilateral neck PEAK SYSTOLIC VELOCITIES (cm/sec): ICA/CCA RATIO: Right: 1.6 Left: 1.0 ICA: Right: 94 Left: 176 CCA: Right: 60 Left: 173 ECA: Right: 69 Left: 53 VERTEBRAL: Right: 57 antegrade Left: 25 antegrade Elevated flow velocities and ICA/CCA ratios have been found to correlate with increased degrees of vessel stenosis, calculated as percentage of diameter relative to a normal segment of distal ICA/CCA FINDINGS: RIGHT CAROTID: There has been previous stenting of the carotid bifurcation on the right. The stent appears widely pa tent. The waveform is within normal limits. LEFT CAROTID: There is extensive atherosclerotic plaquing at the bifurcation with both hard and soft plaque present . The waveform is within normal limits. The velocity ratios within normal limits however, there is si gnificant elevation of the velocities in both the internal and common carotid. Based on the severity of the calcification I would recommend further assessment of this with CT angiography. VERTEBRAL ARTERIES: Antegrade flow is seen in both vertebral arteries. MISCELLANEOUS: None. CONCLUSION: 1. There has been a previous stent placed at the bifurcation on the right. This appears widely patent . 2. There is extensive calcified and soft plaque at the bifurcation on the left. The velocity ratio is within normal limits however, the velocities in both the internal and common carotid are significant ly elevated. Due to the elevation of the velocities and the extensive amount of plaque present I woul d recommend further assessment of this with CT angiography. Mack Kaba MD on November 10, 2017 at 10:25 Board Certified Radiologist. This report was verified electronically.
--- NOTE | 2017-11-10 10:40 | RADRPT ---
EXAM DATE/TIME: 11/10/2017 09:44 [facility] COMPARISON: MRI BRAIN W/O CONTRAST, November 09, 2015, 14:02. MRA BRAIN W/O CONTRAST, November 09, 2015, 14:02. INDICATIONS : Syncope. CONTRAST: 16 cc Omniscan (gadodiamide) IV MEDICAL HISTORY : Hypertension. CVA. SURGICAL HISTORY : Carotid endarterectomy. ENCOUNTER: Initial ACUITY: 1 day PAIN SCORE: 0/10 LOCATION: cranial TECHNIQUE: Multiplanar, multisequence MRI of the brain was performed both prior to and following the administrat ion of paramagnetic contrast. FINDINGS: The merchant recovery images demonstrate some scattered areas of increased T2 signal in the high righ t parietal cortices. There is no abnormal signal seen in these areas on the diffusion resected imagin g. No findings are seen to indicate acute cortical infarct. Pre-and postcontrast T1-weighted imaging is provided. No enhancing mass lesion is identified. No abno rmal intra-or extra-axial fluid collections are seen. The sulci and gyri are otherwise intact. The appearance of the posterior fossa is unremarkable. The visualized sinuses are intact. The orbits are intact. Note is made of deviation of the nasal sept um. CONCLUSION: 1. No findings to indicate acute cortical infarction are seen. No mass lesion is identified. 2. The There are some scattered areas of increased T2 signal in the white matter evident on the inver pastora recovery images most consistent with microvascular ischemic demyelinative change. Mack Kaba MD on November 10, 2017 at 10:33 Board Certified Radiologist. This report was verified electronically.
--- NOTE | 2017-11-10 10:47 | MB ---
cc: KRISTOPHER FLORENCE M.D. DATE OF CONSULTATION 11/10/2017 HISTORY OF PRESENT ILLNESS A 77-year-old left-handed man with hypertension, hypercholesterolemia, [place], a stroke about a year and a half ago with right carotid endarterectomy and left-sided facial droop at that time, peripheral vascular disease evidently left lower extremity. He does take a baby aspirin a day. He has had a cough and a cold and yesterday he was leaning over in his chair putting on his socks when he passed out briefly just for a few seconds. No chest pain, palpitations or headache. No incontinence or tongue biting. Woke up within a few seconds. Never passed out before. I am asked to see him for syncope. He saw Dr. Barber two years ago. He had a high-grade right internal carotid artery stenosis, left facial droop, acute stroke on the right side of the brain, and he had the endarterectomy, says he had full recovery from that. MEDICATIONS Medications at home: 1. Isosorbide. 2. Lasix. 3. Lisinopril. 4. Coreg. 5. Lipitor. 6. Plavix. 7. Aspirin 81 mg. REVIEW OF SYSTEMS He denied any diabetes, atrial fibrillation, Coumadin, renal, hepatic or pulmonary disease, thyroid disease, lupus, ulcer, cancer, seizure. SOCIAL HISTORY He is a smoker. He quit about a week and a half ago. He is not a drinker. Lives alone. FAMILY HISTORY Negative for cancer, seizure or stroke. PHYSICAL EXAMINATION VITAL SIGNS: 117/56, 57, afebrile, 16. NECK: There are no carotid bruits. He has a well-healed right CEA scar. HEART: Regular rhythm. I do not detect a murmur. NEUROLOGIC: Pupils are equal. Visual martinez are full. Extraocular movements are intact without nystagmus. Face is symmetric. Tongue is midline. No drift. Normal strength in upper and lower extremities bilaterally. Toes are downgoing bilaterally. DTRs are trace throughout. Pinprick is diminished on the right side of the face compared to the left and distally in the left lower extremity, proximally in the right lower extremity, it is hard to say. LABORATORY CBC is normal. Basic metabolic profile essentially normal. Troponin elevated at 0.85. LDL cholesterol was normal in November 2016. UA is negative. Coags normal. IMAGING Chest x-ray showed a right lung atelectasis. CAT scan of the brain was read as normal. IMPRESSION AND RECOMMENDATIONS Probably a low blood pressure episode with syncope. Certainly with the elevated troponin I would recommend having cardiology see him. This is probably non-neurological syncope. Will check his carotid ultrasound and EEG, standing blood pressures, MRI of the brain and check his thyroid. He should have an echo and a Holter especially with the elevated troponin. Overall, this is probably a non-neurological cause of syncope. MD TERA Mccallum/YAKOV /8:22 AM /10:24 AM
[2017-11-10] MEDS: SODIUM CHLORIDE 0.9% FLUSH 10 ML FLUSH IV FLUSH SCH ×2 (11:10→21:04)
--- NOTE | 2017-11-10 11:17 | EKG ---
Date Performed: 11/10/2017 Time Performed: 07:49:28 PTAGE: 77 years EKG: Sinus rhythm RIGHT BUNDLE BRANCH BLOCK Nonspecific ST and T wave abnormalities ABNORMAL ECG No significant change from prior electrocardiogram. PREVIOUS TRACING : 11/09/2017 20.27 DOCTOR: Nacho Blas Interpretating Date/Time 11/10/2017 11:17:06
[2017-11-10 11:59] LABS: TROPONIN I 0.5 NG/ML (0.02-0.05)
--- NOTE | 2017-11-10 12:32 | MB ---
cc: NAMRATA LÓPEZ M.D. DATE OF CONSULTATION: 11/10/2017. REASON FOR CONSULTATION: Syncope. HISTORY OF PRESENT ILLNESS: The patient is a 77-year-old white male with a history of coronary artery disease, carotid disease, CVA, hypertension, hyperlipidemia, severe ischemic cardiomyopathy with ejection fraction of 15% by echocardiogram last year who presented to the hospital mainly with complaints of flu symptoms. For the past few days, he has had a cough productive of whitish to yellowish sputum as well as chills. On the day of admission, while sitting on the recliner putting on his socks, he lost consciousness after bending over. He believes he lost consciousness for only a couple of seconds. When he regained consciousness, there was no disorientation. He denies any preceding pain, palpitations, nausea. He also denies any other episodes of syncope in the past. The patient denies angina symptoms, shortness of breath, paroxysmal nocturnal dyspnea, pedal edema, orthopnea. He reports compliance with medications. Troponin level was checked here in the hospital and found to be slightly abnormal. PAST MEDICAL HISTORY: 1. Carotid disease status post right carotid endarterectomy 11/10/15. A carotid ultrasound today reports "widely patent stent placed at the bifurcation on the right", extensive atherosclerotic plaquing at the bifurcation of the left carotid with both hard and soft plaque present, although velocity ratios were within normal limits as were the waveforms. 2. Right-sided CVA 11/08/15. 3. Hypertension. 4. Hyperlipidemia. 5. Ejection fraction 15% by cardiac catheterization 11/28/16 as well as echocardiogram 11/25/16. The patient apparently was recommended a LifeVest external defibrillator after discharge from the hospital last year but he eventually declined to use it. He has had no further cardiac follow up. 6. Coronary artery disease with cardiac catheterization 11/28/16 showing separate left anterior descending and left circumflex ostia, 60% ostial and 70% proximal left anterior descending stenoses, 60% ostial left circumflex, 50% proximal left circumflex, 40% proximal marginal, totally occluded mid right coronary artery with bridging collaterals. CARDIAC MEDICATIONS AT HOME: 1. Isosorbide mononitrate 30 milligrams daily. 2. Furosemide 20 milligrams daily. 3. Lisinopril 2.5 milligrams daily. 4. Coreg 3.125 milligrams twice a day. 5. Lipitor 80 milligrams at bedtime. 6. Plavix 75 milligrams daily. 7. Aspirin 81 milligrams daily. ALLERGIES: NO KNOWN DRUG ALLERGIES. FAMILY HISTORY: Many members have diabetes. SOCIAL HISTORY: The patient quit smoking about a week ago. Prior to that, he was smoking about a pack of cigarettes per day. He denies alcohol abuse. REVIEW OF SYSTEMS: Review of systems as in the history of present illness otherwise negative or noncontributory. He also denies headache, visual changes, abdominal pain, melena, dyspepsia, bright red blood per rectum. PHYSICAL EXAMINATION: VITAL SIGNS: On physical examination, his blood pressure is 181/86 with a pulse of 70, respirations 20. GENERAL: In general, he is a well-developed, well-nourished white male in no acute distress. HEAD, EYES, EARS, NOSE, THROAT: On HEENT examination, jugular venous pressure is normal. Carotid pulses are 2+ bilaterally and without bruits. CHEST: Examination of the chest reveals clear lung martinez. CARDIAC: On cardiac examination, he has a regular rhythm and rate without S3, S4 or murmur. ABDOMEN: On abdominal examination, he has a soft, nontender abdomen. Bowel sounds are present. There is no definite hepatosplenomegaly. EXTREMITIES: No cyanosis, clubbing or edema. EKGS: EKG shows sinus rhythm, right bundle-branch block, nonspecific S-T and T wave abnormalities. IMAGING STUDIES: Chest x-ray shows mild right lung base atelectasis. LABORATORY DATA: WBCs 5.1, hemoglobin 14.0, platelets 116,000. Potassium 4.3, BUN 23, creatinine 1.05. Troponin 0.93. CK 150. IMPRESSION: Syncope, slightly abnormal troponin levels in this 77-year-old white male with a history of carotid disease, coronary artery disease, CVA, hypertension, severe dilated cardiomyopathy with ejection fraction of 15% by echocardiogram last year. His syncopal episode probably was vasovagal-mediated or due to some orthostatic hypotension. Monitoring here in the hospital has been uneventful. On the other hand, with his history of severe left ventricular dysfunction, it is certainly possible he had a ventricular tachyarrhythmia. Echocardiogram is currently pending. With respect to the slightly abnormal troponin levels, I doubt it is due to acute coronary syndrome. CKs are negative for myocardial infarction. There are no diagnostic S-T segment or T-wave changes on EKG. The patient denies any recent chest pain symptoms. Nonetheless, he did have multiple areas of diseased coronary vessels on cardiac catheterization last year, the worst of which was total occlusion of a mid right coronary artery with bridging collaterals. RECOMMENDATIONS: 1. Would continue his usual home cardiac medications. 2. Await his 2-D echocardiogram. 3. If his ejection fraction is still less than 35%, I have recommended AICD implantation. The nature of this procedure and potential risks have been outlined. The patient does agree to proceed. 4. Will also check a nuclear stress test to rule out major areas of ischemia in light of the cardiac catheterization findings from last year. Overall will likely recommend continued medical therapy. MD CLIFTON Velasco/KI /11:53 AM /12:05 PM MTDMickey
--- NOTE | 2017-11-10 14:03 | EKG ---
Date Performed: 11/10/2017 Time Performed: 02:18:04 PTAGE: 77 years EKG: Baseline artifact present Sinus rhythm Right bundle branch block Possible inferior infarct - age undetermined Nonspecific ST and T wave abn ormalities Abnormal ECG Compared to prior electrocardiogram, PVCs are no longer present. DOCTOR: Nacho Blas Interpretating Date/Time 11/13/2017 07:52:14
--- NOTE | 2017-11-10 14:08 | EKG ---
Date Performed: 11/09/2017 Time Performed: 23:02:26 PTAGE: 77 years EKG: Sinus rhythm WITH FREQUENT VENTRICULAR PREMATURE COMPLEXES IN A BIGEMINAL PATTERN RIGHT BUNDLE BRANCH BLOCK Nonsp ecific ST and T wave abnormalities ABNORMAL ECG No significant change from prior electrocardiogram. PREVIOUS TRACING : 11/09/2017 20.27 DOCTOR: Nacho Blas Interpretating Date/Time 11/10/2017 14:06:50
--- NOTE | 2017-11-10 16:34 | HHI.CCPN ---
Subjective Remarks/Hospital Course 77-year-old gentleman presents with complaints of 4 days of chills productive cough, yellowish sputum. He denies any chest pain fever or chills or shortness of breath. Today when he was trying to put on his socks and bend over he passed out. 11/10: Troponin peaked at 0.85. Cardiology Consulted-Dr. Lambert. 2D Echo pending. AICD if EF <35%. Nuclear stress test to rule out major areas of ischemia planned for AM. Patient was neither syncopal episode Objective Vital Signs Date Time Temp Pulse Resp B/P (MAP) Pulse Ox O2 Delivery O2 Flow Rate FiO2 11/10/17 15:00 91 11/10/17 14:00 137/65 (89) 11/10/17 12:00 98.5 18 95 11/10/17 09:41 Nasal Cannula 2.00 Intake and Output 11/10/17 11/10/17 11/11/17 08:00 16:00 00:00 Intake Total 461 ml 688 ml Output Total 650 ml 2025 ml Balance -189 ml -1337 ml Result Diagram: 11/10/17 0205 11/10/17 0205 Other Results Microbiology Date/Time Source Procedure Growth Status 11/09/17 20:15 Nasal Washing Influenza Types A,B Antigen (NICOLE) - Final NEGATIVE FOR FLU A AND B ANTIGEN.... Complete Imaging Last [address] 11/09/172049 Signed Impressions: Service Date/Time: October 21:08 - CONCLUSION: 1. No acute intracranial abnormality. 2. Chronic paranasal sinus disease. Sarthak Gary Jr., MD Chest X-Ray 11/09/172002 Signed Impressions: Service Date/Time: October 21:16 - CONCLUSION: No acute disease. Sarthak Gary Jr., MD Objective Remarks GENERAL: Well-nourished, well-developed patient. SKIN: Warm and dry. HEAD: Normocephalic. EYES: No scleral icterus. No injection or drainage. NECK: Supple, trachea midline. No JVD or lymphadenopathy. CARDIOVASCULAR: Regular rate and rhythm without murmurs, gallops, or rubs. RESPIRATORY: Breath sounds equal bilaterally. No accessory muscle use. GASTROINTESTINAL: Abdomen soft, non-tender, nondistended. MUSCULOSKELETAL: No cyanosis, or edema. BACK: Nontender without obvious deformity. NEURO EXAM: Patient is alert and oriented to person, place, and time with normal speech A/P Assessment and Plan Syncope - Ultrasound carotid- CTA recommended due to high velocities and extensive calcification - 2-D echo, if EF <35% will need AICD prior to DC per Dr. Lambert - Telemetry - Series of troponin and EKGs - Stress test in am per Dr. Lambert - Neurology consultation Pneumonia - Broad-spectrum antibiotics. De-escalate per sensitivity - Blood cultures urine cultures - Urine antigens Hypotension-resolved - IV fluids resuscitation DVT GI prophylaxis - Teds SCDs - Subcutaneous heparin - Pepcid Critical Care: Level 2 Transfer to [facility] with Tele. Hospitalist to assume care in [place] Rodriguez MD Nov 10, 2017 16:34
--- NOTE | 2017-11-10 18:40 | MG ---
cc: KRISTOPHER FLORENCE Lab No: [id number] Date: 11/10/17 Age: Sex: M Race: Some white matter changes, chills, cough, SD, fever. Heparin Lasix The recording shows a symmetric 8-9 Hz, 60 microvolt posterior rhythm. The recording overall is synchronous and symmetric. No hemisphere asymmetries are noted. No epileptiform or seizure activity is seen. Hyperventilation is not performed. Photic stimulation was performed without significant posterior driving. IMPRESSION Normal awake EEG, no evidence for a focal or diffuse abnormality. MD TERA Mccallum/ /5:52 PM /6:12 PM
[2017-11-10] MEDS: cefTRIAXone INJ 1,000 MG in SODIUM CHLORIDE 0.9% INJ 100 ML IV SCH (21:02)
[2017-11-10] MEDS: AZITHROMYCIN INJ 500 MG in SODIUM CHLOR 0.9% 250 ML INJ 250 ML IV SCH (21:02)
[2017-11-10] MEDS: ATORVASTATIN 80 MG TAB PO SCH (21:03)
[2017-11-10] MEDS: CARVEDILOL 3.125 MG TAB PO SCH (21:03)
[2017-11-10] MEDS: ASPIRIN EC 81 MG TABEC PO SCH (21:20)
[2017-11-10] MEDS ORDERED: IOHEXOL 350 MG/ML 10 ML VIAL (for RAD DIAG) IVCONTRAST ONE (22:51)
--- NOTE | 2017-11-10 23:16 | RADRPT ---
EXAM DATE/TIME: 11/10/2017 22:42 [facility] COMPARISON: CTA CAROTID ARTERIES W 3D RECON, November 09, 2015, 11:49. INDICATIONS : Syncopal episodes. Abnormal ultrasound. IV CONTRAST: 75 cc Omnipaque 350 (iohexol) IV RADIATION DOSE: 26.85 CTDIvol (mGy) MEDICAL HISTORY : Hypercholesterolemia. Hypertension. Myocardial infarction. Transient ischemic SURGICAL HISTORY : Cardiac catheterization. Right endarterectomy. Sinus polyps removed. ENCOUNTER: Initial ACUITY: 1 day PAIN SCALE: 0/10 LOCATION: neck Elevated flow velocities and ICA/CCA ratios have been found to correlate with increased degrees of vessel stenosis, calculated as percentage of diameter relative to a normal segment of distal ICA/CCA. TECHNIQUE: Volumetric scanning was performed using a multirow detector CT scanner. The data was post processed with a variety of visualization algorithms including full-volume maximum intensity projection, multip lanar sliding thin-slab reformation, curved-planar reformation, and surface-rendering techniques. Us ing automated exposure control and adjustment of the mA and/or kV according to patient size, radiatio n dose was kept as low as reasonably achievable to obtain optimal diagnostic quality images. DICOM f ormat image data is available electronically for review and comparison. FINDINGS: AORTIC ARCH: There is 3 vessel arch anatomy. Ostial mixed plaque with resultant moderate stenosis of the brachioce phalic origin, mild to moderate stenosis of the left carotid origin and mild to moderate stenosis of the left subclavian origin. RIGHT CAROTID: The common carotid artery is intact. Postsurgical features of interval carotid endarterectomy. No sig nificant flow-limiting stenosis. Internal carotid artery is patent to the skull base. External caroti d artery is patent. LEFT CAROTID: Diffuse noncalcified plaque in the mid common carotid artery with resultant approximate the 50% steno sis. Calcified plaque in the carotid bulb extending to the origin of the internal carotid artery. The with resultant approximately 45-50% stenosis. Tandem 40-45% stenoses slightly more distally in the p roximal internal carotid artery. Internal carotid artery is otherwise patent to the skull base. Exter nal carotid artery is patent. VERTEBRALS: The vertebral arteries have a symmetric diameter. Origin of the right vertebral artery is markedly to rtuous. Eccentric calcified plaque in the proximal right vertebral artery with resultant less than 10 % stenosis. No significant flow-limiting stenotic lesions are seen. Nonvascular findings: Sub-5 mm nodule in the right thyroid lobe. Biapical paraseptal emphysema and biapical scarring. 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 CONCLUSION: 1. Mixed arch plaque with resultant moderate stenosis of the brachiocephalic origin and mild to moder ate stenosis of the left carotid and subclavian origins. 2. Interval right carotid endarterectomy without significant flow-limiting stenosis. 3. Diffuse noncalcified plaque in the mid left common carotid artery with resultant approximate 50% s tenosis. 4. Calcified plaque in the left carotid bulb extending to the origin of the internal carotid artery w ith resultant 45-50% stenosis. Additional tandem 40-45% stenoses slightly more distally in the proxim al left internal carotid artery. 5. Patent bilateral vertebral arteries. Catrachito Ospina MD on November 10, 2017 at 23:04 Board Certified Radiologist. This report was verified electronically.
[2017-11-11] VITALS (28 sets, daily range): BP systolic 95–131; BP diastolic 54–74; PULSE 54–80; RESP 16–20; TEMP 96.6–97.7; O2SAT 93–100
[2017-11-11] MEDS: ZOLPIDEM TARTRATE 5 MG TAB PO PRN ×2 (01:00→23:46)
[2017-11-11] MEDS: CHLORHEXIDINE GLUCONATE 2 % 1 PACK (2 CLOTHS) TOP SCH (04:00)
[2017-11-11] MEDS: HEPARIN SODIUM - SQ 10,000 UNITS/ML VIAL SQ SCH ×3 (04:10→22:20)
[2017-11-11] MEDS: PIPERACIL-TAZO 4.5 GM PREMIX 100 ML IV SCH ×4 (04:10→21:30)
[2017-11-11 04:14] LABS: AUTOMATED NEUTROPHIL # 4.4 TH/MM3 (1.8-7.7); BASOPHIL % 0.4 % (0.0-2.0); EOSINOPHIL % 0.1 % (0.0-4.0); HEMATOCRIT 39.9 % (39.0-51.0); HEMOGLOBIN 13.8 GM/DL (13.0-17.0); LYMPH % 19.7 % (9.0-44.0); LYMPHOCYTE # 1.2 TH/MM3 (1.0-4.8); MEAN CORPUSCULAR HEMOGLOBIN 32.5 PG (27.0-34.0); MEAN CORPUSCULAR HGB CONC 34.6 % (32.0-36.0); MEAN PLATELET VOLUME 6.7 FL (7.0-11.0); MONOCYTE # 0.4 TH/MM3 (0-0.9); NEUT % 72.8 % (16.0-70.0); PLATELET COUNT 124 TH/MM3 (150-450); RED BLOOD COUNT 4.25 MIL/MM3 (4.50-5.90); RED CELL DISTRIBUTION WIDTH 13.9 % (11.6-17.2); WHITE BLOOD COUNT 6.1 TH/MM3 (4.0-11.0)
[2017-11-11 04:29] LABS: ALBUMIN 3.1 GM/DL (3.4-5.0); ALT (GPT) 17 U/L (12-78); AST (GOT) 16 U/L (15-37); BICARBONATE 32.7 MEQ/L (21.0-32.0); BLOOD UREA NITROGEN 23 MG/DL (7-18); CALCIUM 7.9 MG/DL (8.5-10.1); CHLORIDE 102 MEQ/L (98-107); CREATININE 1.11 MG/DL (0.60-1.30); GLOMERULAR FILTRATION RATE 65 ML/MIN (>89); GLUCOSE,RANDOM 100 MG/DL (74-106); MAGNESIUM 2.2 MG/DL (1.5-2.5); PHOSPHORUS 2.8 MG/DL (2.5-4.9); SODIUM (NA) 140 MEQ/L (136-145)
[2017-11-11 04:32] LABS: ALKALINE PHOSPHATASE 54 U/L (45-117); TOTAL BILIRUBIN ADULT 0.4 MG/DL (0.2-1.0); TOTAL PROTEIN 6.6 GM/DL (6.4-8.2)
[2017-11-11] MEDS: RESP: ALBUTEROL 2.5 MG/IPRATROPIUM 0.5 MG NEB (SCH) INH ×4 (04:50→20:59)
[2017-11-11] MEDS: ISOSORBIDE MONONITRATE 30 MG TAB PO SCH (07:00)
[2017-11-11] MEDS: DOCUSATE SODIUM 50 MG/SENNA 8.6 MG TAB PO SCH ×2 (09:00→21:00)
[2017-11-11] MEDS: FAMOTIDINE 20 MG/2 ML VIAL IV PUSH SCH ×2 (09:02→22:20)
[2017-11-11] MEDS: SODIUM CHLORIDE 0.9% FLUSH 10 ML FLUSH IV FLUSH SCH ×2 (09:03→22:21)
[2017-11-11] MEDS: CARVEDILOL 3.125 MG TAB PO SCH ×2 (09:03→22:20)
[2017-11-11] MEDS: LISINOPRIL 5 MG TAB PO SCH (09:03)
[2017-11-11] MEDS: ASPIRIN EC 81 MG TABEC PO SCH (09:03)
[2017-11-11] MEDS: FUROSEMIDE 20 MG/2 ML VIAL IV PUSH SCH (09:03)
--- NOTE | 2017-11-11 09:08 | HHI.PR ---
Subjective Remarks sr Objective Vital Signs Date Time Temp Pulse Resp B/P (MAP) Pulse Ox O2 Delivery O2 Flow Rate FiO2 11/11/17 07:15 96.6 73 16 95/58 (70) 100 11/11/17 07:00 57 11/11/17 06:00 55 11/11/17 05:00 54 11/11/17 04:12 97.4 66 20 114/63 (80) 95 11/11/17 04:00 65 11/11/17 03:00 64 11/11/17 02:00 68 11/11/17 01:00 64 11/11/17 00:45 97.6 69 20 130/71 (90) 97 11/11/17 00:00 75 11/10/17 23:00 66 11/10/17 22:18 Nasal Cannula 2.00 11/10/17 22:00 72 20 116/73 (87) 11/10/17 22:00 72 11/10/17 21:00 68 11/10/17 21:00 68 20 131/71 (91) 11/10/17 20:00 70 20 127/71 (89) 11/10/17 20:00 70 11/10/17 19:47 69 11/10/17 19:39 97.5 69 20 149/73 (98) 97 11/10/17 16:00 97.9 78 22 156/72 (100) 97 11/10/17 15:00 91 11/10/17 14:00 137/65 (89) 11/10/17 14:00 128/63 (84) 11/10/17 12:00 98.5 76 18 143/86 (105) 95 11/10/17 09:41 99 Nasal Cannula 2.00 I/O 11/10/17 11/10/17 11/10/17 11/11/17 11/11/17 11/11/17 07:00 15:00 23:00 07:00 15:00 23:00 Intake Total 961 ml 100 ml 1068 ml 400 ml Output Total 825 ml 2025 ml 300 ml 1100 ml Balance 136 ml -1925 ml 768 ml -700 ml Intake Oral 240 ml 480 ml 400 ml IV Total 721 ml 100 ml 588 ml Output Urine Total 825 ml 2025 ml 300 ml 1100 ml # Bowel Movements 0 1 Result Diagram: 11/11/1740611/11/17406 Objective Remarks vff face sym 02/24 Assessment and Plan Assessment and Plan imp us and cta overall ok r cea but also ? stent r ica open? mri old r small mca cva no new cva eeg nl echo pend he had a hx of ef 15% IF HIS EF < OR = 20% NOW WOULD REC DC PLAVIX AND RX COUMADIN CVA RISK HIGH FROM LOW EF CARDS ON CASE OW NEURO GILBERT NO ACUTE ISSUE HERE and could dc neurowise when cleared by cards and anticoag issue above decided on by med team/Pablo Lawler MD Nov 11, 2017 09:08
[2017-11-11] MEDS ORDERED: REGADENOSON INJ 0.4 MG/5 ML SYR ONE (10:21)
--- NOTE | 2017-11-11 11:02 | HHI.PR ---
Subjective Remarks Follow-up syncope/bilateral pneumonia 11/11/17-patient seen and examined, denies any syncopal episodes since admission. Denies any chest pain. Completed 2-D echo. I did not for nuclear stress test. Per neurology if EF equal or less than 20% consider discontinuing Plavix and starting Coumadin Objective Vitals Vital Signs Date Time Temp Pulse Resp B/P (MAP) Pulse Ox O2 Delivery O2 Flow Rate FiO2 11/11/17 09:30 96 Nasal Cannula 2.00 11/11/17 07:15 96.6 73 16 95/58 (70) 100 11/11/17 07:00 57 11/11/17 06:00 55 11/11/17 05:00 54 11/11/17 04:12 97.4 66 20 114/63 (80) 95 11/11/17 04:00 65 11/11/17 03:00 64 11/11/17 02:00 68 11/11/17 01:00 64 11/11/17 00:45 97.6 69 20 130/71 (90) 97 11/11/17 00:00 75 11/10/17 23:00 66 11/10/17 22:18 Nasal Cannula 2.00 11/10/17 22:00 72 20 116/73 (87) 11/10/17 22:00 72 11/10/17 21:00 68 11/10/17 21:00 68 20 131/71 (91) 11/10/17 20:00 70 20 127/71 (89) 11/10/17 20:00 70 11/10/17 19:47 69 11/10/17 19:39 97.5 69 20 149/73 (98) 97 11/10/17 16:00 97.9 78 22 156/72 (100) 97 11/10/17 15:00 91 11/10/17 14:00 137/65 (89) 11/10/17 14:00 128/63 (84) 11/10/17 12:00 98.5 76 18 143/86 (105) 95 I/O 11/10/17 11/10/17 11/10/17 11/11/17 11/11/17 11/11/17 07:00 15:00 23:00 07:00 15:00 23:00 Intake Total 961 ml 100 ml 1068 ml 400 ml Output Total 825 ml 2025 ml 300 ml 1100 ml Balance 136 ml -1925 ml 768 ml -700 ml Intake Oral 240 ml 480 ml 400 ml IV Total 721 ml 100 ml 588 ml Output Urine Total 825 ml 2025 ml 300 ml 1100 ml # Bowel Movements 0 1 Result Diagram: 11/11/177 11/11/177 Imaging Last Impressions Brain MRI 11/10/17827 Signed Impressions: Service Date/Time: Friday, November 10, 2017 09:44 - CONCLUSION: 1. No findings to indicate acute cortical infarction are seen. No mass lesion is identified. 2. The There are some scattered areas of increased T2 signal in the white matter evident on the inversion recovery images most consistent with microvascular ischemic demyelinative change. Mack Kaba MD Neck CTA 11/10/17 0000 Signed Impressions: Service Date/Time: Friday, November 10, 2017 22:42 - CONCLUSION: 1. Mixed arch plaque with resultant moderate stenosis of the brachiocephalic origin and mild to moderate stenosis of the left carotid and subclavian origins. 2. Interval right carotid endarterectomy without significant flow-limiting stenosis. 3. Diffuse noncalcified plaque in the mid left common carotid artery with resultant approximate 50%% stenosis. 4. Calcified plaque in the left carotid bulb extending to the origin of the internal carotid artery with resultant 45-50%% stenosis. Additional tandem 40-45%% stenoses slightly more distally in the proximal left internal carotid artery. 5. Patent bilateral vertebral arteries. Catrachito Ospina MD Chest X-Ray 11/10/17 0000 Signed Impressions: Service Date/Time: Friday, November 10, 2017 03:41 - CONCLUSION: 1. Mild right lung base atelectasis. Catrachito Ospina MD Carotid Artery Ultrasound 11/10/17 0000 Signed Impressions: Service Date/Time: Friday, November 10, 2017 08:04 - CONCLUSION: 1. There has been a previous stent placed at the bifurcation on the right. This appears widely patent. 2. There is extensive calcified and soft plaque at the bifurcation on the left. The velocity ratio is within normal limits however, the velocities in both the internal and common carotid are significantly elevated. Due to the elevation of the velocities and the extensive amount of plaque present I would recommend further assessment of this with CT angiography. Mack Kaba MD Head CT 11/09/172049 Signed Impressions: Service Date/Time: October 21:08 - CONCLUSION: 1. No acute intracranial abnormality. 2. Chronic paranasal sinus disease. Sarthak Gary Jr., MD Objective Remarks GENERAL: NAD SKIN: Warm and dry. HEAD: Normocephalic. EYES: No scleral icterus. No injection or drainage. NECK: Supple, trachea midline. No JVD or lymphadenopathy. CARDIOVASCULAR: Regular rate and rhythm without murmurs, gallops, or rubs. RESPIRATORY: Breath sounds equal bilaterally. No accessory muscle use. GASTROINTESTINAL: Abdomen soft, non-tender, nondistended. MUSCULOSKELETAL: No cyanosis, or edema. BACK: Nontender without obvious deformity. No CVA tenderness. A/P Problem List: (1) Syncope ICD Code: R55 - Syncope and collapse Status: Acute (2) Hypertension ICD Code: I10 - Essential (primary) hypertension Status: Chronic (3) CAD (coronary artery disease) ICD Code: I25.10 - Atherosclerotic heart disease of [place] coronary artery without angina pectoris Status: Chronic Assessment and Plan 77-year-old man with Syncope - Ultrasound carotid- CTA recommended due to high velocities and extensive calcification - 2-D echo pending, if EF <35% will need AICD prior to DC per Dr. Lambert and Per Neurology if EF<20% patient will need to be started on Coumadin and d/c Plavix - Plan for Stress test this AM -PT/OT to treat Pneumonia - Continue with Broad-spectrum antibiotics including azithromycin and Rocephin. De-escalate per sensitivity - Blood and urine cultures cultures NTD Hypotension-resolved - IV fluids resuscitation History of chronic systolic CHF -Continue with Imdur, Prinivil -2-D echo pending Hyperlipidemia -Currently on statin DVT GI prophylaxis - Teds SCDs - Subcutaneous heparin - Pepcid Problem Qualifiers (1) Syncope: Qualified Codes: R55 - Syncope and collapse (2) Hypertension: Qualified Codes: I10 - Essential (primary) hypertension (3) CAD (coronary artery disease): Qualified Codes: I25.10 - Atherosclerotic heart disease of [place] coronary artery without angina pectoris John Feliz MD Nov 11, 2017 11:02
--- NOTE | 2017-11-11 11:06 | PD.CARD.PN ---
Subjective Subjective Remarks Denies dyspnea, CP, dizziness, palpitations, recurrent syncope. Objective Medications Item Value Date Time Lisinopril 2.5 mg 11/11/17 0900 (Prinivil) DAILY/PO 11/11/17 09 Isosorbide 30 mg 11/11/17 0700 Mononitrate DAILY@07/PO (Imdur) Atorvastatin 80 mg 11/10/172099 Calcium HS/PO 11/10/172102 (Lipitor) Carvedilol 3.125 mg 11/10/17 2100 (Coreg) Q12HR/PO 11/11/17 09 Aspirin 81 mg 11/10/17 2000 (Ecotrin Ec) DAILY/PO 11/11/17 09 Furosemide 20 mg 11/10/17 0900 (Lasix Inj) BID@/IV PUSH 11/11/17 09 Heparin Sodium 5,000 units 11/10/17 0315 (Porcine) Q8H/SQ 11/11/17 0410 (Heparin Inj) Current Medications Medications (Trade) Dose Ordered Sig/Cristine Route Start Time Stop Time Status Last Admin (Lasix Inj) 20 mg BID@ IV PUSH 11/10/17 09:00 11/11/17 09:03 (Narcan Inj) 0.4 mg UNSCH PRN IV PUSH 11/09/17 21:30 Ceftriaxone Sodium 1000 mg/ Sodium Chloride 100 ml @ 200 mls/hr Q24H IV 11/10/17 20:00 11/10/17 21:02 Dopamine HCl/ Dextrose 500 ml @ 0 mls/hr TITRATE PRN IV 11/09/17 22:00 11/09/17 22:32 Phenylephrine HCl 40 mg/Dextrose 500 ml @ 30 mls/hr TITRATE PRN IV 11/09/17 23:15 (Brethine Inj) 1 mg UNSCH PRN SQ 11/09/17 23:15 (NS Flush) 2 ml UNSCH PRN IV FLUSH 11/10/17 03:15 11/10/17 04:13 (NS Flush) 2 ml BID IV FLUSH 11/10/17 09:00 11/11/17 09:03 (Tylenol) 650 mg Q6H PRN PO 11/10/17 03:15 (Pepcid Inj) 20 mg Q12HR IV PUSH 11/10/17 09:00 11/11/17 09:02 (Zofran Inj) 4 mg Q6H PRN IV PUSH 11/10/17 03:15 (Ambien) 5 mg HS PRN PO 11/10/17 03:15 11/11/17 01:00 (Duoneb Neb) 1 ampule Q6HR NEB INH 11/10/17 04:00 11/11/17 09:33 (Duoneb Neb) 1 ampule Q2HR NEB PRN INH 11/10/17 03:15 (Heparin Inj) 5,000 units Q8H SQ 11/10/17 03:15 11/11/17 04:10 Miscellaneous Information 1 Q361D XX 11/10/17 03:15 (Chlorhexidine 2% Cloth) 3 pack Taper DAILY@04 TOP 11/10/17 04:00 11/06/18 03:59 (Chlorhexidine 2% Cloth) 3 pack UNSCH PRN TOP 11/10/17 03:15 (Anna-Colace) 1 tab BID PO 11/10/17 09:00 11/10/17 21:03 (Milk Of Magnesia Liq) 30 ml Q12H PRN PO 11/10/17 03:15 (Senokot) 17.2 mg Q12H PRN PO 11/10/17 03:15 (Dulcolax Supp) 10 mg DAILY PRN RECTAL 11/10/17 03:15 (Lactulose Liq) 30 ml DAILY PRN PO 11/10/17 03:15 Piperacillin Sod/ Tazobactam Sod 100 ml @ 200 mls/hr Q6H IV 11/10/17 03:30 11/11/17 09:03 Azithromycin 500 mg/Sodium Chloride 250 ml @ 250 mls/hr Q24H IV 11/10/17 22:00 11/10/17 21:02 (Lipitor) 80 mg HS PO 11/10/17 21:00 11/10/17 21:03 (Coreg) 3.125 mg Q12HR PO 11/10/17 21:00 11/11/17 09:03 (Prinivil) 2.5 mg DAILY PO 11/11/17 09:00 11/11/17 09:03 (Imdur) 30 mg DAILY@07 PO 11/11/17 07:00 (Ecotrin Ec) 81 mg DAILY PO 11/10/17 20:00 11/11/17 09:03 Vital Signs / I&O Vital Signs Date Time Temp Pulse Resp B/P (MAP) Pulse Ox O2 Delivery O2 Flow Rate FiO2 11/11/17 09:30 96 Nasal Cannula 2.00 11/11/17 07:15 96.6 73 16 95/58 (70) 100 11/11/17 07:00 57 11/11/17 06:00 55 11/11/17 05:00 54 11/11/17 04:12 97.4 66 20 114/63 (80) 95 11/11/17 04:00 65 11/11/17 03:00 64 11/11/17 02:00 68 11/11/17 01:00 64 11/11/17 00:45 97.6 69 20 130/71 (90) 97 11/11/17 00:00 75 11/10/17 23:00 66 11/10/17 22:18 Nasal Cannula 2.00 11/10/17 22:00 72 20 116/73 (87) 11/10/17 22:00 72 11/10/17 21:00 68 11/10/17 21:00 68 20 131/71 (91) 11/10/17 20:00 70 20 127/71 (89) 11/10/17 20:00 70 11/10/17 19:47 69 11/10/17 19:39 97.5 69 20 149/73 (98) 97 11/10/17 16:00 97.9 78 22 156/72 (100) 97 11/10/17 15:00 91 11/10/17 14:00 137/65 (89) 11/10/17 14:00 128/63 (84) 11/10/17 12:00 98.5 76 18 143/86 (105) 95 I/O 11/10/17 11/10/17 11/10/17 11/11/17 11/11/17 11/11/17 06:59 14:59 22:59 06:59 14:59 22:59 Intake Total 961 ml 100 ml 1068 ml 400 ml Output Total 825 ml 2025 ml 300 ml 1100 ml Balance 136 ml -1925 ml 768 ml -700 ml Intake Oral 240 ml 480 ml 400 ml IV Total 721 ml 100 ml 588 ml Output Urine Total 825 ml 2025 ml 300 ml 1100 ml # Bowel Movements 0 1 Physical Exam GENERAL: Well developed, well nourished. No acute distress. HEENT: Jugular venous pressure is normal. CHEST: Lungs clear to auscultation bilaterally. Unlabored respiratory effort. CARDIAC: Regular rate and rhythm without S3, S4, or murmur. ABDOMEN: Soft, nontender, no hepatosplenomegaly. Bowel sounds present. EXTREMITIES: No clubbing, cyanosis, or edema. Laboratory Laboratory Tests Test 11/10/17 11:27 11/10/17 12:00 11/11/17 04:07 Total Creatine Kinase 224 U/L Troponin I 0.50 NG/ML Erythrocyte Sedimentation Rate 23 mm/hr Vitamin B12 Level 420 PG/ML White Blood Count 6.1 TH/MM3 Red Blood Count 4.25 MIL/MM3 Hemoglobin 13.8 GM/DL Hematocrit 39.9 % Mean Corpuscular Volume 94.0 FL Mean Corpuscular Hemoglobin 32.5 PG Mean Corpuscular Hemoglobin Concent 34.6 % Red Cell Distribution Width 13.9 % Platelet Count 124 TH/MM3 Mean Platelet Volume 6.7 FL Neutrophils (%) (Auto) 72.8 % Lymphocytes (%) (Auto) 19.7 % Monocytes (%) (Auto) 7.0 % Eosinophils (%) (Auto) 0.1 % Basophils (%) (Auto) 0.4 % Neutrophils # (Auto) 4.4 TH/MM3 Lymphocytes # (Auto) 1.2 TH/MM3 Monocytes # (Auto) 0.4 TH/MM3 Eosinophils # (Auto) 0.0 TH/MM3 Basophils # (Auto) 0.0 TH/MM3 CBC Comment DIFF FINAL Differential Comment Blood Urea Nitrogen 23 MG/DL Creatinine 1.11 MG/DL Random Glucose 100 MG/DL Total Protein 6.6 GM/DL Albumin 3.1 GM/DL Calcium Level 7.9 MG/DL Phosphorus Level 2.8 MG/DL Magnesium Level 2.2 MG/DL Alkaline Phosphatase 54 U/L Aspartate Amino Transf (AST/SGOT) 16 U/L Alanine Aminotransferase (ALT/SGPT) 17 U/L Total Bilirubin 0.4 MG/DL Sodium Level 140 MEQ/L Potassium Level 3.7 MEQ/L Chloride Level 102 MEQ/L Carbon Dioxide Level 32.7 MEQ/L Anion Gap 5 MEQ/L Estimat Glomerular Filtration Rate 65 ML/MIN Assessment and Plan Problem List: (1) Syncope ICD Codes: R55 - Syncope and collapse Status: Acute Plan: Stable overnight. No recurrent syncope. Monitoring so far uneventful. Suspect syncope was due to orthostatic hypotension or vasovagal mediated but with his history of severe LV dysfunction, consider he had VT or VF. REC await echo continue monitoring if EF < 35% rec ICD implantation (2) CAD (coronary artery disease) ICD Codes: I25.10 - Atherosclerotic heart disease of [place] coronary artery without angina pectoris Status: Chronic Plan: Stable. No recent angina. Undergoing nuclear stress test to assess ischemia burden. Unless ischemia extensive, recommend medical therapy of his CAD especially as he has had no recent angina. (3) Dilated cardiomyopathy ICD Codes: I42.0 - Dilated cardiomyopathy Status: Chronic Plan: History of EF 15%. Awaiting repeat echo. If EF < 35%, to place AICD. Continue beta melchor, BHAVNA-I. Rec oral furosemide. No CHF at present. (4) Hypertension ICD Codes: I10 - Essential (primary) hypertension Status: Chronic Plan: Stable. Normal to low normal BP's. Code Status full code Discussed Condition With patient Problem Qualifiers (1) Syncope: Qualified Codes: R55 - Syncope and collapse (2) CAD (coronary artery disease): Qualified Codes: I25.10 - Atherosclerotic heart disease of [place] coronary artery without angina pectoris (3) Hypertension: Qualified Codes: I10 - Essential (primary) hypertension Robin Lambert MD Nov 11, 2017 11:06
--- NOTE | 2017-11-11 13:07 | RADRPT ---
EXAM DATE/TIME: 11/11/2017 10:52 [facility] COMPARISON: CHEST SINGLE AP, November 10, 2017, 3:41. INDICATIONS : Patient passed out. Angina. Coronary atherosclerosis. DOSE: 25.5 mCi Tc99m Myoview at stress. 8.7 mCi Tc99m Myoview at rest. 0.4 mg Lexiscan STRESS SYMPTOMS: Shortness of breath. EJECTION FRACTION: 17% MEDICAL HISTORY : Hypertension. Peripheral vascular disease. SURGICAL HISTORY : Right endarterectomy ENCOUNTER: Initial ACUITY: 1 day PAIN SCALE: 2/10 LOCATION: Bilateral chest TECHNIQUE: The patient underwent pharmacologic stress with infusion of prescribed dose. Continuous ECG tracing was monitored during stress. Gated SPECT imaging was performed after stress and conventional SPECT i maging was performed at rest. The examination was performed on a SPECT/CT scanner, both attenuation and non-corrected datasets were reviewed. FINDINGS: DISTRIBUTION: The maximum perfused segment at stress is in the anterolateral wall. PERFUSION STUDY: The pattern of perfusion at stress demonstrates a dilated left ventricular chamber but absent perfusi on to the posterior basal and inferior wall and a fixed defect involving the mid and low anteroapical wall. GATED STUDY: There is global hypokinesis. CONCLUSION: Global hypokinesis and reduction in ejection fraction and no significant ischemia. RISK CATEGORY: Intermediate (1-3% Annual Mortality Rate) Nai Rodriguez MD on November 11, 2017 at 13:03 Board Certified Radiologist. This report was verified electronically.
--- NOTE | 2017-11-11 15:06 | ECHRPT ---
Indication: SYNCOPE CONCLUSIONS The left ventricular systolic function is severely reduced with an estimated ejection fraction in th e range of 20-25%. Inferior Akinesis Normal left ventricular size. Moderate concentric left ventricular hypertrophy. There is global left ventricular dysfunction. Mild thickening of the mitral valve leaflets. [id number] mitral valve regurgitation. Aortic valve sclerosis is present. Mild aortic valve regurgitation. There is trace tricuspid valve regurgitation. The estimated pulmonary arterial pressure is 24 mmHg. BP: 117 / 56 HR: 57 Rhythm: Sinus MEASUREMENTS (Male / Female) Normal Values Technical Quality:Good 2D ECHO LV Diastolic Diameter PLAX 5.2 cm 4.2 - 5.9 / 3.9 - 5.3 cm LV Systolic Diameter PLAX 4.9 cm IVS Diastolic Thickness 1.5 cm 0.6 - 1.0 / 0.6 - 0.9 cm LVPW Diastolic Thickness 1.5 cm 0.6 - 1.0 / 0.6 - 0.9 cm LV Relative Wall Thickness 0.6 LVOT Diameter 2.1 cm LV Ejection Fraction MOD 4C 28.1 % LV Cardiac Index MOD 4C 1712.7 cm/minm LV Ejection Fraction 4C AL 29.4 % LV Cardiac Index 4C AL 1854.3 cm/minm M-MODE Aortic Root Diameter MM 2.6 cm AV Cusp Separation MM 1.8 cm DOPPLER AV Peak Velocity 119.0 cm/s AV Peak Gradient 5.7 mmHg AI Peak Velocity 348.0 cm/s AI Peak Gradient 48.4 mmHg AI Pressure Half Time 454.0 ms LVOT Peak Velocity 57.8 cm/s LVOT Peak Gradient 1.3 mmHg AV Area Cont Eq pk 1.7 cm MV Area PHT 2.9 cm Mitral E Point Velocity 67.1 cm/s Mitral A Point Velocity 66.1 cm/s Mitral E to A Ratio 1.0 LV E' Lateral Velocity 4.8 cm/s Mitral E to LV E' Lateral Ratio 14.0 LV E' Septal Velocity 3.5 cm/s Mitral E to LV E' Septal Ratio 19.1 TR Peak Velocity 187.0 cm/s TR Peak Gradient 14.0 mmHg Right Atrial Pressure 10.0 mmHg Pulmonary Artery Systolic Pressu 24.0 mmHg Right Ventricular Systolic Press 24.0 mmHg FINDINGS LEFT VENTRICLE The left ventricular systolic function is severely reduced with an estimated ejection fraction in th e range of 20-25%. Inferior Akinesis Normal left ventricular size. Moderate concentric left ventricular hypertrophy. There is global left ventricular dysfunction. RIGHT VENTRICLE Normal right ventricular size and systolic function. LEFT ATRIUM The left atrial size is normal. RIGHT ATRIUM The right atrial size is normal. ATRIAL SEPTUM Normal atrial septal thickness without atrial level shunting by limited color doppler interrogation. AORTA The aortic root and proximal ascending aorta are normal in size on limited imaging. MITRAL VALVE Mild thickening of the mitral valve leaflets. [id number] mitral valve regurgitation. AORTIC VALVE Trileaflet aortic valve. Aortic valve sclerosis is present. Mild aortic valve regurgitation. TRICUSPID VALVE Structurally normal tricuspid valve. There is trace tricuspid valve regurgitation. The estimated pulmonary arterial pressure is 24 mmHg. PULMONARY VALVE No pulmonary valve regurgitation or stenosis. VESSELS The inferior vena cava is normal in size. PERICARDIUM No pericardial effusion. Ish Morales MD (Electronically Signed) Final Date:11 November 2017 15:06
[2017-11-11] MEDS: cefTRIAXone INJ 1,000 MG in SODIUM CHLORIDE 0.9% INJ 100 ML IV SCH (20:00)
[2017-11-11] MEDS: AZITHROMYCIN INJ 500 MG in SODIUM CHLOR 0.9% 250 ML INJ 250 ML IV SCH (22:00)
[2017-11-11] MEDS: ATORVASTATIN 80 MG TAB PO SCH (22:21)
[2017-11-12] VITALS (25 sets, daily range): BP systolic 98–114; BP diastolic 55–65; PULSE 60–90; RESP 16–18; TEMP 96.6–97.6; O2SAT 91–95
[2017-11-12] MEDS: HEPARIN SODIUM - SQ 10,000 UNITS/ML VIAL SQ SCH ×3 (03:15→20:54)
[2017-11-12] MEDS: PIPERACIL-TAZO 4.5 GM PREMIX 100 ML IV SCH ×2 (03:30→09:17)
[2017-11-12] MEDS: RESP: ALBUTEROL 2.5 MG/IPRATROPIUM 0.5 MG NEB (SCH) INH ×4 (03:32→20:54)
[2017-11-12] MEDS: CHLORHEXIDINE GLUCONATE 2 % 1 PACK (2 CLOTHS) TOP SCH (04:00)
[2017-11-12 05:48] LABS: BICARBONATE 32.5 MEQ/L (21.0-32.0); CALCIUM 7.7 MG/DL (8.5-10.1); CREATININE 1.35 MG/DL (0.60-1.30)
[2017-11-12] MEDS: ISOSORBIDE MONONITRATE 30 MG TAB PO SCH (06:13)
--- NOTE | 2017-11-12 08:53 | PD.CARD.PN ---
Subjective Subjective Remarks Denies dyspnea, CP, dizziness, palpitations, recurrent syncope. Objective Medications Item Value Date Time Furosemide 40 mg 11/12/17 0900 (Lasix) DAILY/PO Lisinopril 2.5 mg 11/11/17 0900 (Prinivil) DAILY/PO 11/11/17 0903 Isosorbide 30 mg 11/11/17 0700 Mononitrate DAILY@07/PO 11/12/17 0613 (Imdur) Atorvastatin 80 mg 11/10/17 2100 Calcium HS/PO 11/11/172220 (Lipitor) Carvedilol 3.125 mg 11/10/17 2100 (Coreg) Q12HR/PO 11/11/172219 Aspirin 81 mg 11/10/171999 (Ecotrin Ec) DAILY/PO 11/11/17 09 Current Medications Medications (Trade) Dose Ordered Sig/Cristine Route Start Time Stop Time Status Last Admin (Narcan Inj) 0.4 mg UNSCH PRN IV PUSH 11/09/17 21:30 Ceftriaxone Sodium 1000 mg/ Sodium Chloride 100 ml @ 200 mls/hr Q24H IV 11/10/17 20:00 11/11/17 20:00 Dopamine HCl/ Dextrose 500 ml @ 0 mls/hr TITRATE PRN IV 11/09/17 22:00 11/09/17 22:32 Phenylephrine HCl 40 mg/Dextrose 500 ml @ 30 mls/hr TITRATE PRN IV 11/09/17 23:15 (Brethine Inj) 1 mg UNSCH PRN SQ 11/09/17 23:15 (NS Flush) 2 ml UNSCH PRN IV FLUSH 11/10/17 03:15 11/10/17 04:13 (NS Flush) 2 ml BID IV FLUSH 11/10/17 09:00 11/11/17 22:21 (Tylenol) 650 mg Q6H PRN PO 11/10/17 03:15 11/11/17 14:48 (Pepcid Inj) 20 mg Q12HR IV PUSH 11/10/17 09:00 11/11/17 22:20 (Zofran Inj) 4 mg Q6H PRN IV PUSH 11/10/17 03:15 (Ambien) 5 mg HS PRN PO 11/10/17 03:15 11/11/17 23:46 (Duoneb Neb) 1 ampule Q6HR NEB INH 11/10/17 04:00 11/12/17 08:28 (Duoneb Neb) 1 ampule Q2HR NEB PRN INH 11/10/17 03:15 (Heparin Inj) 5,000 units Q8H SQ 11/10/17 03:15 11/12/17 03:15 Miscellaneous Information 1 Q361D XX 11/10/17 03:15 (Chlorhexidine 2% Cloth) 3 pack Taper DAILY@04 TOP 11/10/17 04:00 11/06/18 03:59 (Chlorhexidine 2% Cloth) 3 pack UNSCH PRN TOP 11/10/17 03:15 (Anna-Colace) 1 tab BID PO 11/10/17 09:00 11/10/17 21:03 (Milk Of Magnesia Liq) 30 ml Q12H PRN PO 11/10/17 03:15 (Senokot) 17.2 mg Q12H PRN PO 11/10/17 03:15 (Dulcolax Supp) 10 mg DAILY PRN RECTAL 11/10/17 03:15 (Lactulose Liq) 30 ml DAILY PRN PO 11/10/17 03:15 Piperacillin Sod/ Tazobactam Sod 100 ml @ 200 mls/hr Q6H IV 11/10/17 03:30 11/12/17 03:30 Azithromycin 500 mg/Sodium Chloride 250 ml @ 250 mls/hr Q24H IV 11/10/17 22:00 11/11/17 22:00 (Lipitor) 80 mg HS PO 11/10/17 21:00 11/11/17 22:21 (Coreg) 3.125 mg Q12HR PO 11/10/17 21:00 11/11/17 22:20 (Prinivil) 2.5 mg DAILY PO 11/11/17 09:00 11/11/17 09:03 (Imdur) 30 mg DAILY@07 PO 11/11/17 07:00 11/12/17 06:13 (Ecotrin Ec) 81 mg DAILY PO 11/10/17 20:00 11/11/17 09:03 (Lasix) 40 mg DAILY PO 11/12/17 09:00 Vital Signs / I&O Vital Signs Date Time Temp Pulse Resp B/P (MAP) Pulse Ox O2 Delivery O2 Flow Rate FiO2 11/12/17 08:30 91 11/12/17 06:00 70 11/12/17 05:00 70 11/12/17 04:00 70 11/12/17 03:00 68 11/12/17 03:00 97.4 73 16 102/55 (71) 95 11/12/17 02:00 64 11/12/17 01:00 60 11/12/17 00:00 68 11/11/17 23:00 97.4 71 20 131/74 (93) 93 11/11/17 23:00 63 11/11/17 22:00 62 11/11/17 21:00 66 11/11/17 20:00 64 11/11/17 19:00 97.7 71 20 104/59 (74) 95 11/11/17 19:00 70 11/11/17 18:00 68 11/11/17 17:00 61 11/11/17 16:12 19 11/11/17 16:00 80 11/11/17 15:53 94 21 11/11/17 15:00 69 11/11/17 15:00 97.3 70 18 115/54 (74) 93 11/11/17 14:00 74 11/11/17 13:00 66 11/11/17 12:40 72 11/11/17 12:37 96.8 75 17 117/65 (82) 94 11/11/17 09:30 96 Nasal Cannula 2.00 11/11/17 09:00 66 I/O 11/11/17 11/11/17 11/11/17 11/12/17 11/12/17 11/12/17 07:00 15:00 23:00 07:00 15:00 23:00 Intake Total 400 ml 680 ml 240 ml Output Total 1100 ml 375 ml Balance -700 ml 680 ml -135 ml Intake Oral 400 ml 480 ml 240 ml IV Total 200 ml Output Urine Total 1100 ml 375 ml # Voids 3 1 # Bowel Movements 1 Physical Exam GENERAL: Well developed, well nourished. No acute distress. HEENT: Jugular venous pressure is normal. CHEST: Diminished breath sounds diffusely. CARDIAC: Regular rate and rhythm without S3, S4. I/ BRANDON RUSB with diminished S2. ABDOMEN: Soft, nontender, no hepatosplenomegaly. Bowel sounds present. EXTREMITIES: No clubbing, cyanosis, or edema. Laboratory Laboratory Tests Test 11/12/17 04:53 Blood Urea Nitrogen 27 MG/DL Creatinine 1.35 MG/DL Random Glucose 88 MG/DL Calcium Level 7.7 MG/DL Sodium Level 138 MEQ/L Potassium Level 4.5 MEQ/L Chloride Level 101 MEQ/L Carbon Dioxide Level 32.5 MEQ/L Anion Gap 5 MEQ/L Estimat Glomerular Filtration Rate 52 ML/MIN Imaging Last 24 hours Impressions Myocardial Perfusion Scan Nuc Med 11/11/17 0910 Signed Impressions: Service Date/Time: Monday, November 11, 2017 10:52 - CONCLUSION: Global hypokinesis and reduction in ejection fraction and no significant ischemia. RISK CATEGORY: Intermediate (1-3%% Annual Mortality Rate) Nai Rodriguez MD Assessment and Plan Problem List: (1) Syncope ICD Codes: R55 - Syncope and collapse Status: Acute Plan: Stable overnight. No recurrent syncope. Monitoring so far uneventful. Suspect syncope was due to orthostatic hypotension or vasovagal mediated but with his history of severe LV dysfunction, consider he had VT or VF. To undergo ICD implant sometime this week. REC continue to monitor (2) CAD (coronary artery disease) ICD Codes: I25.10 - Atherosclerotic heart disease of [place] coronary artery without angina pectoris Status: Chronic Plan: Stable. No recent angina. No ischemia on nuclear stress testing. There is fixed inferior defect c/w prior infarction in this region. Rec continued medical therapy. (3) Dilated cardiomyopathy ICD Codes: I42.0 - Dilated cardiomyopathy Status: Chronic Plan: EF ~25% by echo this admission. Rec ICD when infection treated. Continue beta melchor, BHAVNA-I. Rec oral furosemide. No CHF at present. (4) Hypertension ICD Codes: I10 - Essential (primary) hypertension Status: Chronic Plan: Stable. Normal to low normal BP's. Code Status full code Discussed Condition With patient Problem Qualifiers (1) Syncope: Qualified Codes: R55 - Syncope and collapse (2) CAD (coronary artery disease): Qualified Codes: I25.10 - Atherosclerotic heart disease of [place] coronary artery without angina pectoris (3) Hypertension: Qualified Codes: I10 - Essential (primary) hypertension Robin Lambert MD Nov 12, 2017 08:53
[2017-11-12] MEDS: DOCUSATE SODIUM 50 MG/SENNA 8.6 MG TAB PO SCH (09:00)
[2017-11-12] MEDS: FUROSEMIDE 40 MG TAB PO SCH (09:22)
[2017-11-12] MEDS: SODIUM CHLORIDE 0.9% FLUSH 10 ML FLUSH IV FLUSH SCH ×2 (09:23→20:53)
[2017-11-12] MEDS: FAMOTIDINE 20 MG/2 ML VIAL IV PUSH SCH ×2 (09:23→20:53)
[2017-11-12] MEDS: LISINOPRIL 5 MG TAB PO SCH (09:23)
[2017-11-12] MEDS: CARVEDILOL 3.125 MG TAB PO SCH ×2 (09:23→20:53)
[2017-11-12] MEDS: ASPIRIN EC 81 MG TABEC PO SCH (09:24)
[2017-11-12] MEDS ORDERED: PILL SPLITTER OTHER PRN (09:30)
--- NOTE | 2017-11-12 10:13 | HHI.PR ---
Subjective Remarks sr Objective Vital Signs Date Time Temp Pulse Resp B/P (MAP) Pulse Ox O2 Delivery O2 Flow Rate FiO2 11/12/17 08:30 91 11/12/17 06:00 70 11/12/17 05:00 70 11/12/17 04:00 70 11/12/17 03:00 68 11/12/17 03:00 97.4 73 16 102/55 (71) 95 11/12/17 02:00 64 11/12/17 01:00 60 11/12/17 00:00 68 11/11/17 23:00 97.4 71 20 131/74 (93) 93 11/11/17 23:00 63 11/11/17 22:00 62 11/11/17 21:00 66 11/11/17 20:00 64 11/11/17 19:00 97.7 71 20 104/59 (74) 95 11/11/17 19:00 70 11/11/17 18:00 68 11/11/17 17:00 61 11/11/17 16:12 19 11/11/17 16:00 80 11/11/17 15:53 94 21 11/11/17 15:00 69 11/11/17 15:00 97.3 70 18 115/54 (74) 93 11/11/17 14:00 74 11/11/17 13:00 66 11/11/17 12:40 72 11/11/17 12:37 96.8 75 17 117/65 (82) 94 I/O 11/11/17 11/11/17 11/11/17 11/12/17 11/12/17 11/12/17 07:00 15:00 23:00 07:00 15:00 23:00 Intake Total 400 ml 680 ml 240 ml Output Total 1100 ml 375 ml Balance -700 ml 680 ml -135 ml Intake Oral 400 ml 480 ml 240 ml IV Total 200 ml Output Urine Total 1100 ml 375 ml # Voids 3 1 # Bowel Movements 1 Result Diagram: 11/11/17 0407 11/12/17 0453 Objective Remarks vff face sym 5/5 nl speech looks well Assessment and Plan Assessment and Plan imp us and cta overall ok r cea but also ? stent r ica open? mri old r small mca cva no new cva eeg nl echo pend he had a hx of ef 15% IF HIS EF < OR = 20% NOW WOULD REC DC PLAVIX AND RX COUMADIN CVA RISK HIGH FROM LOW EF CARDS ON CASE OW NEURO GILBERT NO ACUTE ISSUE HERE and could dc neurowise when cleared by cards and anticoag issue above decided on by med team/cards 11/12/17 no new problems overnoc his echo ef 20-25% no new cva holter pend carotids ok eeg nl plan i would rec anticoagulation with such a low ef but will defer to med team on this decision will sign off fu holter plPablo Mckee MD Nov 12, 2017 10:13
--- NOTE | 2017-11-12 10:22 | HHI.PR ---
Subjective Remarks Follow-up syncope/bilateral pneumonia 11/11/17-patient seen and examined, denies any syncopal episodes since admission. Denies any chest pain. Completed 2-D echo. I did not for nuclear stress test. Per neurology if EF equal or less than 20% consider discontinuing Plavix and starting Coumadin 11/12/17-patient seen and examined, complains of diarrhea 2 however has no chest pain or shortness of breath. No syncopal episode. Currently afebrile and denies any cough symptoms. Objective Vitals Vital Signs Date Time Temp Pulse Resp B/P (MAP) Pulse Ox O2 Delivery O2 Flow Rate FiO2 11/12/17 08:30 91 11/12/17 06:00 70 11/12/17 05:00 70 11/12/17 04:00 70 11/12/17 03:00 68 11/12/17 03:00 97.4 73 16 102/55 (71) 95 11/12/17 02:00 64 11/12/17 01:00 60 11/12/17 00:00 68 11/11/17 23:00 97.4 71 20 131/74 (93) 93 11/11/17 23:00 63 11/11/17 22:00 62 11/11/17 21:00 66 11/11/17 20:00 64 11/11/17 19:00 97.7 71 20 104/59 (74) 95 11/11/17 19:00 70 11/11/17 18:00 68 11/11/17 17:00 61 11/11/17 16:12 19 11/11/17 16:00 80 11/11/17 15:53 94 21 11/11/17 15:00 69 11/11/17 15:00 97.3 70 18 115/54 (74) 93 11/11/17 14:00 74 11/11/17 13:00 66 11/11/17 12:40 72 11/11/17 12:37 96.8 75 17 117/65 (82) 94 I/O 11/11/17 11/11/17 11/11/17 11/12/17 11/12/17 11/12/17 07:00 15:00 23:00 07:00 15:00 23:00 Intake Total 400 ml 680 ml 240 ml Output Total 1100 ml 375 ml Balance -700 ml 680 ml -135 ml Intake Oral 400 ml 480 ml 240 ml IV Total 200 ml Output Urine Total 1100 ml 375 ml # Voids 3 1 # Bowel Movements 1 Result Diagram: 11/11/17 0407 11/12/17 0453 Imaging Last Impressions Myocardial Perfusion Scan Nuc Med 11/11/17 0910 Signed Impressions: Service Date/Time: Saturday, November 11, 2017 10:52 - CONCLUSION: Global hypokinesis and reduction in ejection fraction and no significant ischemia. RISK CATEGORY: Intermediate (1-3%% Annual Mortality Rate) Nai Rodriguez MD Brain MRI 11/10/17 0828 Signed Impressions: Service Date/Time: Friday, November 10, 2017 09:44 - CONCLUSION: 1. No findings to indicate acute cortical infarction are seen. No mass lesion is identified. 2. The There are some scattered areas of increased T2 signal in the white matter evident on the inversion recovery images most consistent with microvascular ischemic demyelinative change. Mack Kaba MD Neck CTA 11/10/17 0000 Signed Impressions: Service Date/Time: Friday, November 10, 2017 22:42 - CONCLUSION: 1. Mixed arch plaque with resultant moderate stenosis of the brachiocephalic origin and mild to moderate stenosis of the left carotid and subclavian origins. 2. Interval right carotid endarterectomy without significant flow-limiting stenosis. 3. Diffuse noncalcified plaque in the mid left common carotid artery with resultant approximate 50%% stenosis. 4. Calcified plaque in the left carotid bulb extending to the origin of the internal carotid artery with resultant 45-50%% stenosis. Additional tandem 40-45%% stenoses slightly more distally in the proximal left internal carotid artery. 5. Patent bilateral vertebral arteries. Catrachito Ospina MD Chest X-Ray 11/10/17 0000 Signed Impressions: Service Date/Time: Friday, November 10, 2017 03:41 - CONCLUSION: 1. Mild right lung base atelectasis. Catrachito Ospina MD Carotid Artery Ultrasound 11/10/17 0000 Signed Impressions: Service Date/Time: Friday, November 10, 2017 08:04 - CONCLUSION: 1. There has been a previous stent placed at the bifurcation on the right. This appears widely patent. 2. There is extensive calcified and soft plaque at the bifurcation on the left. The velocity ratio is within normal limits however, the velocities in both the internal and common carotid are significantly elevated. Due to the elevation of the velocities and the extensive amount of plaque present I would recommend further assessment of this with CT angiography. Mack Kaba MD Head CT 11/09/172049 Signed Impressions: Service Date/Time: October 21:08 - CONCLUSION: 1. No acute intracranial abnormality. 2. Chronic paranasal sinus disease. Sarthak Gary Jr., MD Objective Remarks GENERAL: NAD SKIN: Warm and dry. HEAD: Normocephalic. EYES: No scleral icterus. No injection or drainage. NECK: Supple, trachea midline. No JVD or lymphadenopathy. CARDIOVASCULAR: Regular rate and rhythm without murmurs, gallops, or rubs. RESPIRATORY: Breath sounds equal bilaterally. No accessory muscle use. GASTROINTESTINAL: Abdomen soft, non-tender, nondistended. MUSCULOSKELETAL: No cyanosis, or edema. BACK: Nontender without obvious deformity. No CVA tenderness. A/P Problem List: (1) Syncope ICD Code: R55 - Syncope and collapse Status: Acute (2) Hypertension ICD Code: I10 - Essential (primary) hypertension Status: Chronic (3) CAD (coronary artery disease) ICD Code: I25.10 - Atherosclerotic heart disease of [place] coronary artery without angina pectoris Status: Chronic (4) PNA (pneumonia) ICD Code: J18.9 - Pneumonia, unspecified organism (5) Dilated cardiomyopathy ICD Code: I42.0 - Dilated cardiomyopathy Status: Chronic Assessment and Plan 77-year-old man with Syncope - Ultrasound carotid- CTA recommended due to high velocities and extensive calcification -stress test 11/11/17 with global hypokinesis and reduction in ejection fraction and no significant ischemia - 2-D echo with EF 20-25% and plan for ICD placement next week when infection ( PNA) resolved and -Per Neurology if EF<20% consider to start patient on Coumadin instead Plavix -PT/OT to treat Dilated cardiomyopathy -EF 20-25% -Plan for ICD placement when pneumonia resolved -Continue with Coreg, lisinopril 2.5 mg daily, Lasix 40 mg daily -No evidence of CHF exacerbation Coronary artery disease -Nuclear stress test without any evidence of ischemia -Continue current medical management Pneumonia - Discontinue Rocephin and switch to by mouth azithromycin 500 mg daily -Repeat chest x-ray in a.m. 11/13/17 - Blood and urine cultures cultures NTD Diarrhea -Start Lactinex Hypotension-resolved - IV fluids resuscitation History of chronic systolic CHF -Continue with Imdur, Prinivil, Coreg -2-D echo with 20-25% Hyperlipidemia -Currently on statin DVT GI prophylaxis - Teds SCDs - Subcutaneous heparin - Pepcid Problem Qualifiers (1) Syncope: Qualified Codes: R55 - Syncope and collapse (2) Hypertension: Qualified Codes: I10 - Essential (primary) hypertension (3) CAD (coronary artery disease): Qualified Codes: I25.10 - Atherosclerotic heart disease of [place] coronary artery without angina pectoris John Feliz MD Nov 12, 2017 10:22
[2017-11-12] MEDS: LACTOBACILLUS ACIDOPHILUS TAB PO SCH ×2 (11:09→20:53)
[2017-11-12] MEDS: AZITHROMYCIN 250 MG TAB PO SCH (11:09)
--- NOTE | 2017-11-12 13:32 | HM ---
Date Performed: 11/10/2017 Time Performed: 12:51:00 HOOKUP DATE: 11/10/17 12:51:00 PM Fri ANALYSIS START TIME: 11/10/2017 12:56:00 PM ANALYSIS END TIME: 11/11/2017 12:59:59 PM PATIENT AGE: 77 PATIENT HEIGHT PATIENT WEIGHT DRUG LIST PATIENT DIAGNOSIS: chf TEST NARRATIVE: The patient's average heart rate was 70 BPM. No episodes of tachycardia wer e noted. No episodes of bradycardia were noted. No pauses exceeding 2.0 seconds were noted. 567 ventricular ectopics, which represented 1% of the total beat count, were noted. The highest vent ricular ectopic frequency occurred from 03:00 PM to 04:00 PM Fri. During this time 111 VE(s) occurre d. Ventricular ectopics were observed as 555 isolated beat(s) and as 6 couplet(s). No runs were not ed. Some of the ventricular beats occurred in bigeminal cycles. 339 supraventricular ectopics, w hich represented < 1% of the total beat count, were noted. The highest supraventricular ectopic freq uency occurred from 07:00 PM to 08:00 PM Fri. During this time 29 SVE(s) occurred. No episodes o f ST depression (defined as -1.0 mm or more) were noted in channel 1. No episodes of ST depression ( defined as -1.0 mm or more) were noted in channel 2. No episodes of ST depression (defined as -1.0 m m or more) were noted in channel 3. NO DIARY ENTRIES TEST INTERPRETATION: History of CHF. Patient was monitored for 24 hours with a minimum heart rat e of 51, max heart rate of 117, and an average heart rate of 70 bpm. There were 555 PVCs, 269 PACs, w ith 3 atrial runs, the longest of which was 7 beats. Conclusions: Holter monitor notable for occasion al ectopy with PVCs, PACs, and several short atrial runs, but no sustained atrial fibrillation or oth er dysrhythmia. Ventricular ectopy occurred as couplets and triplets, no diary was returned with bridgette rding. Signed by : Ish cadet
[2017-11-12] MEDS: ATORVASTATIN 80 MG TAB PO SCH (20:53)
[2017-11-13] VITALS (25 sets, daily range): BP systolic 111–151; BP diastolic 68–81; PULSE 65–102; RESP 12–20; TEMP 97.2–98.3; O2SAT 91–96
[2017-11-13] MEDS: HEPARIN SODIUM - SQ 10,000 UNITS/ML VIAL SQ SCH ×4 (03:26→21:31)
[2017-11-13] MEDS: RESP: ALBUTEROL 2.5 MG/IPRATROPIUM 0.5 MG NEB (SCH) INH ×4 (03:39→21:30)
[2017-11-13] MEDS: CHLORHEXIDINE GLUCONATE 2 % 1 PACK (2 CLOTHS) TOP SCH (04:00)
--- NOTE | 2017-11-13 05:43 | RADRPT ---
EXAM DATE/TIME: 11/13/2017 04:06 [facility] COMPARISON: CHEST SINGLE AP, November 10, 2017, 3:41. INDICATIONS : Shortness of breath, possible pulmonary disease. MEDICAL HISTORY : Peripheral vascular disease. Hypertension SURGICAL HISTORY : Carotid endarterectomy. ENCOUNTER: Subsequent ACUITY: 3 days PAIN SCORE: 0/10 LOCATION: Bilateral chest FINDINGS: A single view of the chest demonstrates the lungs to be symmetrically aerated without evidence of mas s, infiltrate or effusion. The cardiomediastinal contours are unremarkable. Stable right diaphragma tic calcification. Osseous structures are intact. CONCLUSION: The lungs are clear. Sarthak Givens MD on November 13, 2017 at 5:41 Board Certified Radiologist. This report was verified electronically.
[2017-11-13] MEDS: ISOSORBIDE MONONITRATE 30 MG TAB PO SCH (06:30)
--- NOTE | 2017-11-13 08:12 | PD.CARD.PN ---
Subjective Subjective Remarks Denies dyspnea, CP, dizziness, palpitations, recurrent syncope. Objective Medications Item Value Date Time Furosemide 40 mg 11/12/17 0900 (Lasix) DAILY/PO 11/12/17921 Lisinopril 2.5 mg 11/11/17 0900 (Prinivil) DAILY/PO 11/12/17 09 Isosorbide 30 mg 11/11/17 0700 Mononitrate DAILY@07/PO 11/13/17 0630 (Imdur) Atorvastatin 80 mg 11/10/17 2100 Calcium HS/PO 11/12/172052 (Lipitor) Carvedilol 3.125 mg 11/10/17 2100 (Coreg) Q12HR/PO 11/12/172052 Aspirin 81 mg 11/10/171999 (Ecotrin Ec) DAILY/PO 11/12/17923 Current Medications Medications (Trade) Dose Ordered Sig/Cristine Route Start Time Stop Time Status Last Admin (Narcan Inj) 0.4 mg UNSCH PRN IV PUSH 11/09/17 21:30 Dopamine HCl/ Dextrose 500 ml @ 0 mls/hr TITRATE PRN IV 11/09/17 22:00 11/09/17 22:32 Phenylephrine HCl 40 mg/Dextrose 500 ml @ 30 mls/hr TITRATE PRN IV 11/09/17 23:15 (Brethine Inj) 1 mg UNSCH PRN SQ 11/09/17 23:15 (NS Flush) 2 ml UNSCH PRN IV FLUSH 11/10/17 03:15 11/10/17 04:13 (NS Flush) 2 ml BID IV FLUSH 11/10/17 09:00 11/12/17 20:53 (Tylenol) 650 mg Q6H PRN PO 11/10/17 03:15 11/11/17 14:48 (Pepcid Inj) 20 mg Q12HR IV PUSH 11/10/17 09:00 11/12/17 20:53 (Zofran Inj) 4 mg Q6H PRN IV PUSH 11/10/17 03:15 (Ambien) 5 mg HS PRN PO 11/10/17 03:15 11/11/17 23:46 (Duoneb Neb) 1 ampule Q6HR NEB INH 11/10/17 04:00 11/13/17 03:39 (Duoneb Neb) 1 ampule Q2HR NEB PRN INH 11/10/17 03:15 (Heparin Inj) 5,000 units Q8H SQ 11/10/17 03:15 11/13/17 03:26 Miscellaneous Information 1 Q361D XX 11/10/17 03:15 (Chlorhexidine 2% Cloth) 3 pack Taper DAILY@04 TOP 11/10/17 04:00 11/06/18 03:59 (Chlorhexidine 2% Cloth) 3 pack UNSCH PRN TOP 11/10/17 03:15 (Milk Of Magnlance Liq) 30 ml Q12H PRN PO 11/10/17 03:15 (Lipitor) 80 mg HS PO 11/10/17 21:00 11/12/17 20:53 (Coreg) 3.125 mg Q12HR PO 11/10/17 21:00 11/12/17 20:53 (Prinivil) 2.5 mg DAILY PO 11/11/17 09:00 11/12/17 09:23 (Imdur) 30 mg DAILY@07 PO 11/11/17 07:00 11/13/17 06:30 (Ecotrin Ec) 81 mg DAILY PO 11/10/17 20:00 11/12/17 09:24 (Lasix) 40 mg DAILY PO 11/12/17 09:00 11/12/17 09:22 (Pill Splitter) 1 ea UNSCH PRN OTHER 11/12/17 09:30 (Lactinex) 1 tab Q12HR PO 11/12/17 10:15 11/12/17 20:53 (Zithromax) 500 mg DAILY PO 11/12/17 10:30 11/12/17 11:09 Vital Signs / I&O Vital Signs Date Time Temp Pulse Resp B/P (MAP) Pulse Ox O2 Delivery O2 Flow Rate FiO2 11/13/17 06:07 74 11/13/17 05:00 73 11/13/17 04:00 70 11/13/17 03:58 97.4 74 129/70 (89) 91 11/13/17 03:00 81 11/13/17 02:00 70 11/13/17 01:00 68 11/13/17 00:00 68 11/12/17 23:00 75 11/12/17 23:00 97.6 73 113/60 (77) 91 11/12/17 22:00 68 11/12/17 21:00 78 11/12/17 20:00 84 11/12/17 19:00 97.3 73 114/65 (81) 94 11/12/17 19:00 77 11/12/17 18:00 84 11/12/17 17:00 86 11/12/17 16:00 70 11/12/17 15:00 96.6 70 18 112/64 (80) 95 11/12/17 15:00 71 11/12/17 14:00 62 11/12/17 13:00 68 11/12/17 12:00 97.1 73 18 98/55 (69) 95 11/12/17 12:00 84 11/12/17 11:00 79 11/12/17 10:00 68 11/12/17 09:00 90 11/12/17 08:30 91 I/O 11/12/17 11/12/17 11/12/17 11/13/17 11/13/17 11/13/17 07:00 15:00 23:00 07:00 15:00 23:00 Intake Total 240 ml 480 ml 240 ml Output Total 375 ml 525 ml 925 ml Balance -135 ml -525 ml 480 ml -685 ml Intake Oral 240 ml 480 ml 240 ml Output Urine Total 375 ml 525 ml 925 ml # Voids 1 # Bowel Movements 1 1 Physical Exam GENERAL: Well developed, well nourished. No acute distress. HEENT: Jugular venous pressure is normal. CHEST: Diminished breath sounds diffusely. No rales or rhonchi. CARDIAC: Regular rate and rhythm without S3, S4. I/ BRANDON RUSB with diminished S2. ABDOMEN: Soft, nontender, no hepatosplenomegaly. Bowel sounds present. EXTREMITIES: No clubbing, cyanosis, or edema. Imaging Last 24 hours Impressions Chest X-Ray 11/13/17 0600 Signed Impressions: Service Date/Time: Monday, November 13, 2017 04:06 - CONCLUSION: The lungs are clear. Sarthak Givens MD Assessment and Plan Problem List: (1) Syncope ICD Codes: R55 - Syncope and collapse Status: Acute Plan: Stable since admission. No recurrent syncope. Monitoring uneventful. Suspect syncope was due to orthostatic hypotension or vasovagal mediated but with his history of severe LV dysfunction, consider he had VT or VF. To undergo ICD implant tomorrow afternoon. REC continue to monitor (2) CAD (coronary artery disease) ICD Codes: I25.10 - Atherosclerotic heart disease of [place] coronary artery without angina pectoris Status: Chronic Plan: Stable. No recent angina. No ischemia on nuclear stress testing. There is fixed inferior defect c/w prior infarction in this region. Rec continued medical therapy of his CAD. (3) Dilated cardiomyopathy ICD Codes: I42.0 - Dilated cardiomyopathy Status: Chronic Plan: EF ~25% by echo this admission. Rec ICD tomorrow. Continue beta melchor , BHAVNA-I, furosemide. No CHF at present. Clear chest x-ray today. (4) Hypertension ICD Codes: I10 - Essential (primary) hypertension Status: Chronic Plan: Stable. Normal to low normal BP's. Code Status full code Discussed Condition With patient Problem Qualifiers (1) Syncope: Qualified Codes: R55 - Syncope and collapse (2) CAD (coronary artery disease): Qualified Codes: I25.10 - Atherosclerotic heart disease of [place] coronary artery without angina pectoris (3) Hypertension: Qualified Codes: I10 - Essential (primary) hypertension Robin Lambert MD Nov 13, 2017 08:12
[2017-11-13] MEDS: AZITHROMYCIN 250 MG TAB PO SCH (08:21)
[2017-11-13] MEDS: LACTOBACILLUS ACIDOPHILUS TAB PO SCH ×2 (08:21→21:26)
[2017-11-13] MEDS: ASPIRIN EC 81 MG TABEC PO SCH (08:21)
[2017-11-13] MEDS: LISINOPRIL 5 MG TAB PO SCH (08:21)
[2017-11-13] MEDS: FUROSEMIDE 40 MG TAB PO SCH (08:21)
[2017-11-13] MEDS: CARVEDILOL 3.125 MG TAB PO SCH ×2 (08:21→21:26)
[2017-11-13] MEDS: SODIUM CHLORIDE 0.9% FLUSH 10 ML FLUSH IV FLUSH SCH ×2 (08:22→21:27)
[2017-11-13] MEDS: FAMOTIDINE 20 MG/2 ML VIAL IV PUSH SCH ×2 (08:22→21:26)
--- NOTE | 2017-11-13 10:34 | HHI.PR ---
Subjective Remarks Follow-up for syncope and dilated cardiomyopathy Patient has no complaints. Deny any chest pain, shortness of breathing, palpitation, lightheadedness/ dizziness, or any syncope episodes recently. He stated he is doing well. Patient scheduled for AICD tomorrow. Objective Vitals Vital Signs Date Time Temp Pulse Resp B/P (MAP) Pulse Ox O2 Delivery O2 Flow Rate FiO2 11/13/17 10:01 75 11/13/17 09:31 88 11/13/17 08:30 97.2 102 18 133/78 (96) 93 11/13/17 08:30 65 11/13/17 06:07 74 11/13/17 05:00 73 11/13/17 04:00 70 11/13/17 03:58 97.4 74 129/70 (89) 91 11/13/17 03:00 81 11/13/17 02:00 70 11/13/17 01:00 68 11/13/17 00:00 68 11/12/17 23:00 75 11/12/17 23:00 97.6 73 113/60 (77) 91 11/12/17 22:00 68 11/12/17 21:00 78 11/12/17 20:00 84 11/12/17 19:00 97.3 73 114/65 (81) 94 11/12/17 19:00 77 11/12/17 18:00 84 11/12/17 17:00 86 11/12/17 16:00 70 11/12/17 15:00 96.6 70 18 112/64 (80) 95 11/12/17 15:00 71 11/12/17 14:00 62 11/12/17 13:00 68 11/12/17 12:00 97.1 73 18 98/55 (69) 95 11/12/17 12:00 84 11/12/17 11:00 79 I/O 11/12/17 11/12/17 11/12/17 11/13/17 11/13/17 11/13/17 07:00 15:00 23:00 07:00 15:00 23:00 Intake Total 240 ml 480 ml 240 ml Output Total 375 ml 525 ml 925 ml Balance -135 ml -525 ml 480 ml -685 ml Intake Oral 240 ml 480 ml 240 ml Output Urine Total 375 ml 525 ml 925 ml # Voids 1 # Bowel Movements 1 1 Result Diagram: 11/11/17 0407 11/12/17 0453 Objective Remarks GENERAL: in nad NECK: Supple, trachea midline. No JVD or lymphadenopathy. CARDIOVASCULAR: Regular rate and rhythm without murmurs, gallops, or rubs. RESPIRATORY: Breath sounds equal bilaterally. No accessory muscle use. GASTROINTESTINAL: Abdomen soft, non-tender, nondistended. MUSCULOSKELETAL: No cyanosis, or edema. BACK: Nontender without obvious deformity. No CVA tenderness. Medications and IVs Current Medications Methylprednisolone Sodium Succinate (SoluMEDROL INJ) 60 mg ONCE ONCE IV PUSH Last administered on 11/09/17at 20:28; Start 11/09/17 at 20:15; Stop 11/09/17 at 20:16; Status DC Albuterol Sulfate (Albuterol Neb) 2.5 mg Q15M INH Last administered on at 20:52; Start 11/09/17 at 20:15; Stop 11/09/17 at 20:31; Status DC Ibuprofen (Motrin) 600 mg ONCE ONCE PO Last administered on 11/09/17at 20:40; Start 11/09/17 at 20:30; Stop 11/09/17 at 20:31; Status DC Acetaminophen (Tylenol) 650 mg ONCE ONCE PO Last administered on 11/09/17at 20: 40; Start 11/09/17 at 20:30; Stop 11/09/17 at 20:31; Status DC Furosemide (Lasix Inj) 20 mg ONCE ONCE IVP ; Start 11/09/17 at 22:00; Stop at 22:01; Status DC Ceftriaxone Sodium 1000 mg/ Sodium Chloride 100 ml @ 200 mls/hr ONCE ONCE IV Last administered on 11/09/17at 22:07; Start 11/09/17 at 22:00; Stop 11/09/17 at 22:29; Status DC Azithromycin 500 mg/Sodium Chloride 250 ml @ 250 mls/hr ONCE ONCE IV Last administered on 11/09/17at 23:31; Start 11/09/17 at 22:00; Stop 11/09/17 at 22:59 ; Status DC Furosemide (Lasix Inj) 20 mg BID@09,18 IV PUSH Last administered on 11/11/17at 09:03; Start 11/10/17 at 09:00; Stop 11/11/17 at 11:07; Status DC Sodium Chloride (NS Flush) 2 ml UNSCH PRN IV FLUSH FLUSH AFTER USING IV ACCESS ; Start 11/09/17 at 21:30; Stop 11/10/17 at 03:31; Status DC Sodium Chloride (NS Flush) 2 ml BID IV FLUSH ; Start 11/10/17 at 09:00; Stop at 09:00; Status DC Naloxone HCl (Narcan Inj) 0.4 mg UNSCH PRN IV PUSH SEE LABEL COMMENTS; Start at 21:30 Albuterol/ Ipratropium (Duoneb Neb) 1 ampule Q4HR NEB PRN NEB WHEEZING; Start 11/09/17 at 22:00; Stop 11/10/17 at 03:31; Status DC Ceftriaxone Sodium 1000 mg/ Sodium Chloride 100 ml @ 200 mls/hr Q24H IV Last administered on 11/11/17at 20:00; Start 11/10/17 at 20:00; Stop 11/12/17 at 10:17 ; Status DC Azithromycin (Zithromax) 500 mg DAILY PO Last administered on 11/10/17at 08:33; Start 11/10/17 at 09:00; Stop 11/10/17 at 14:02; Status DC Sodium Chloride 500 ml @ 500 mls/hr BOLUS ONCE IV Last administered on at 22:09; Start 11/09/17 at 21:45; Stop 11/09/17 at 22:44; Status DC Sodium Chloride (NS Flush) 2 ml UNSCH PRN IV FLUSH FLUSH AFTER USING IV ACCESS ; Start 11/09/17 at 22:00; Stop 11/10/17 at 03:31; Status DC Sodium Chloride (NS Flush) 2 ml BID IV FLUSH ; Start 11/10/17 at 09:00; Stop at 09:00; Status DC Miscellaneous Information 1 Q361D XX ; Start 11/09/17 at 22:00; Stop 11/10/17 at 03:31; Status DC Chlorhexidine Gluconate (Chlorhexidine 2% Cloth) 3 pack Taper DAILY@04 TOP Last administered on 11/10/17at 01:30; Start 11/10/17 at 04:00; Stop 11/10/17 at 04:00; Status DC Chlorhexidine Gluconate (Chlorhexidine 2% Cloth) 3 pack UNSCH PRN TOP HYGIENIC CARE; Start 11/09/17 at 22:00; Stop 11/10/17 at 03:31; Status DC Dopamine HCl/ Dextrose 500 ml @ 0 mls/hr TITRATE PRN IV Blood Pressure Management Last administered on 11/09/17at 22:32; Start 11/09/17 at 22:00 Terbutaline Sulfate (Brethine Inj) 1 mg UNSCH PRN SQ For Extravasation; Start 11/09/17 at 22:00; Status Cancel Phenylephrine HCl 40 mg/Dextrose 500 ml @ 30 mls/hr TITRATE PRN IV Blood pressure management; Start 11/09/17 at 23:15 Terbutaline Sulfate (Brethine Inj) 1 mg UNSCH PRN SQ For Extravasation; Start 11/09/17 at 23:15 Sodium Chloride 1,000 ml @ 84 mls/hr [id number] IV Last administered on at 04:13; Start 11/10/17 at 03:11; Stop 11/10/17 at 16:00; Status DC Sodium Chloride (NS Flush) 2 ml UNSCH PRN IV FLUSH FLUSH AFTER USING IV ACCESS Last administered on 11/10/17at 04:13; Start 11/10/17 at 03:15 Sodium Chloride (NS Flush) 2 ml BID IV FLUSH Last administered on 11/13/17at 08: 22; Start 11/10/17 at 09:00 Acetaminophen (Tylenol) 650 mg Q6H PRN PO PAIN 1-10 AND/OR FEVER >101F Last administered on 11/11/17at 14:48; Start 11/10/17 at 03:15 Famotidine (Pepcid Inj) 20 mg Q12HR IV PUSH Last administered on 11/13/17at 08: 22; Start 11/10/17 at 09:00 Ondansetron HCl (Zofran Inj) 4 mg Q6H PRN IV PUSH NAUSEA OR VOMITING; Start at 03:15 Zolpidem Tartrate (Ambien) 5 mg HS PRN PO INSOMNIA Last administered on at 23:46; Start 11/10/17 at 03:15 Albuterol/ Ipratropium (Duoneb Neb) 1 ampule Q6HR NEB INH Last administered on 11/13/17at 10:14; Start 11/10/17 at 04:00 Albuterol/ Ipratropium (Duoneb Neb) 1 ampule Q2HR NEB PRN INH WHEEZING; Start 11/10/17 at 03:15 Heparin Sodium (Porcine) (Heparin Inj) 5,000 units Q8H SQ Last administered on 11/13/17at 03:26; Start 11/10/17 at 03:15 Miscellaneous Information 1 Q361D XX ; Start 11/10/17 at 03:15 Chlorhexidine Gluconate (Chlorhexidine 2% Cloth) 3 pack Taper DAILY@04 TOP ; Start 11/10/17 at 04:00; Stop 11/06/18 at 03:59 Chlorhexidine Gluconate (Chlorhexidine 2% Cloth) 3 pack UNSCH PRN TOP HYGIENIC CARE; Start 11/10/17 at 03:15 Senna/Docusate Sodium (Anna-Colace) 1 tab BID PO Last administered on at 21:03; Start 11/10/17 at 09:00; Stop 11/12/17 at 10:13; Status DC Magnesium Hydroxide (Milk Of Magnesia Liq) 30 ml Q12H PRN PO Mild constipation ; Start 11/10/17 at 03:15 Sennosides (Senokot) 17.2 mg Q12H PRN PO Moderate constipation; Start 11/10/17 at 03:15; Stop 11/12/17 at 10:13; Status DC Bisacodyl (Dulcolax Supp) 10 mg DAILY PRN RECTAL SEVERE CONSITIPATION/ IF NPO; Start 11/10/17 at 03:15; Stop 11/12/17 at 10:13; Status DC Lactulose (Lactulose Liq) 30 ml DAILY PRN PO SEVERE CONSITIPATION/ IF PO; Start 11/10/17 at 03:15; Stop 11/12/17 at 10:13; Status DC Piperacillin Sod/ Tazobactam Sod 100 ml @ 200 mls/hr Q6H IV Last administered on 11/12/17at 09:17; Start 11/10/17 at 03:30; Stop 11/12/17 at 10:14; Status DC Azithromycin 500 mg/Sodium Chloride 250 ml @ 250 mls/hr Q24H IV Last administered on 11/11/17at 22:00; Start 11/10/17 at 22:00; Stop 11/12/17 at 10:13 ; Status DC Gadodiamide (Omniscan Pf Inj) 16 ml STK-MED ONCE IVCONTRAST Last administered on 11/10/17at 10:01; Start 11/10/17 at 10:01; Stop 11/10/17 at 10:02; Status DC Atorvastatin Calcium (Lipitor) 80 mg HS PO Last administered on 11/12/17at 20:53 ; Start 11/10/17 at 21:00 Carvedilol (Coreg) 3.125 mg Q12HR PO Last administered on 11/13/17at 08:21; Start 11/10/17 at 21:00 Lisinopril (Prinivil) 2.5 mg DAILY PO Last administered on 11/13/17at 08:21; Start 11/11/17 at 09:00 Isosorbide Mononitrate (Imdur) 30 mg DAILY@07 PO Last administered on at 06:30; Start 11/11/17 at 07:00 Aspirin (Ecotrin Ec) 81 mg DAILY PO Last administered on 11/13/17at 08:21; Start 11/10/17 at 20:00 Iohexol (Omnipaque 350 Inj) 75 ml STK-MED ONCE IVCONTRAST Last administered on 11/10/17at 22:51; Start 11/10/17 at 22:51; Stop 11/10/17 at 22:52; Status DC Regadenoson (Lexiscan Inj) 0.4 mg STK-MED ONCE .ROUTE Last administered on 11/11at 10:21; Start 11/11/17 at 10:21; Stop 11/11/17 at 10:22; Status DC Furosemide (Lasix) 40 mg DAILY PO Last administered on 11/13/17at 08:21; Start 11/12/17 at 09:00 Miscellaneous (Pill Splitter) 1 ea UNSCH PRN OTHER SEE LABEL COMMENTS; Start at 09:30 Lactobacillus Acidophilus (Lactinex) 1 tab Q12HR PO Last administered on at 08:21; Start 11/12/17 at 10:15 Azithromycin (Zithromax) 500 mg DAILY PO Last administered on 11/13/17at 08:21; Start 11/12/17 at 10:30 Sodium Chloride 1,000 ml @ 100 mls/hr Q10H IV ; Start 11/14/17 at 09:00 Cefazolin Sodium 1000 mg/Sodium Chloride 250 ml @ 0 mls/hr ONCE IV ; Start 11/14 at 14:00; Stop 11/14/17 at 23:59 Vancomycin HCl 1000 mg/Sodium Chloride 250 ml @ 0 mls/hr ONCE IV ; Start at 14:00; Stop 11/14/17 at 23:59 Povidone Iodine (Betadine 5% Antisepsis Kit) 1 applic ONCE TOPICAL ; Start 11/13 at 20:00; Stop 11/13/17 at 23:59 Mupirocin (Bactroban Nasal 2% Oint) 1 applic ONCE EACH NARE ; Start 11/13/17 at 20:00; Stop 11/13/17 at 23:59 Chlorhexidine Gluconate (Chlorhexidine 2% Cloth) 1 pack ONCE TOPICAL ; Start at 20:00; Stop 11/13/17 at 23:59 A/P Problem List: (1) Syncope ICD Code: R55 - Syncope and collapse Status: Acute (2) Hypertension ICD Code: I10 - Essential (primary) hypertension Status: Chronic (3) CAD (coronary artery disease) ICD Code: I25.10 - Atherosclerotic heart disease of [place] coronary artery without angina pectoris Status: Chronic (4) PNA (pneumonia) ICD Code: J18.9 - Pneumonia, unspecified organism (5) Dilated cardiomyopathy ICD Code: I42.0 - Dilated cardiomyopathy Status: Chronic Assessment and Plan 77-year-old man with Syncope - Ultrasound carotid- CTA recommended due to high velocities and extensive calcification -stress test 11/11/17 with global hypokinesis and reduction in ejection fraction and no significant ischemia - 2-D echo with EF 20-25% and plan for ICD tomorrow. -Per Neurology if EF<20% consider to start patient on Coumadin instead Plavix -PT/OT to treat Dilated cardiomyopathy -EF 20-25% -Plan for AICD tomorrow. -Continue with Coreg, lisinopril 2.5 mg daily, Lasix 40 mg daily -No evidence of CHF exacerbation Coronary artery disease -Nuclear stress test without any evidence of ischemia -Continue current medical management Pneumonia - Discontinue Rocephin and switch to by mouth azithromycin 500 mg daily -Negative chest x-ray and asymptomatic. - Blood and urine cultures cultures NTD Diarrhea -on Lactinex Hypotension-resolved - s/p IV fluids resuscitation History of chronic systolic CHF -Continue with Imdur, Prinivil, Coreg -2-D echo with 20-25% Hyperlipidemia -Currently on statin DVT GI prophylaxis - Teds SCDs - Subcutaneous heparin - Pepcid Discharge Planning Patient scheduled for AICD tomorrow. Problem Qualifiers (1) Syncope: Qualified Codes: R55 - Syncope and collapse (2) Hypertension: Qualified Codes: I10 - Essential (primary) hypertension (3) CAD (coronary artery disease): Qualified Codes: I25.10 - Atherosclerotic heart disease of [place] coronary artery without angina pectoris Leny Whalen MD Nov 13, 2017 10:34
[2017-11-13] MEDS ORDERED: MUPIROCIN 2% OINT 1 APPLIC/GM SYR EACH NARE SCH (20:00)
[2017-11-13] MEDS ORDERED: POVIDONE IODINE 5% (ANTISEPSIS KIT) 4 APPLICATIONS TOPICAL SCH (20:00)
[2017-11-13] MEDS ORDERED: CHLORHEXIDINE GLUCONATE 2 % 1 PACK (2 CLOTHS) TOPICAL SCH (20:00)
[2017-11-13] MEDS: ATORVASTATIN 80 MG TAB PO SCH (21:26)
[2017-11-14] VITALS (23 sets, daily range): BP systolic 97–123; BP diastolic 59–69; PULSE 66–95; RESP 16–18; TEMP 98–98.3; O2SAT 91–94
[2017-11-14] MEDS: HEPARIN SODIUM - SQ 10,000 UNITS/ML VIAL SQ SCH ×3 (03:15→20:13)
[2017-11-14] MEDS: RESP: ALBUTEROL 2.5 MG/IPRATROPIUM 0.5 MG NEB (SCH) INH (03:58)
[2017-11-14] MEDS: CHLORHEXIDINE GLUCONATE 2 % 1 PACK (2 CLOTHS) TOP SCH (04:00)
[2017-11-14] MEDS: ISOSORBIDE MONONITRATE 30 MG TAB PO SCH (06:42)
[2017-11-14 07:16] LABS: BICARBONATE 30.8 MEQ/L (21.0-32.0); CALCIUM 8.1 MG/DL (8.5-10.1); CREATININE 0.99 MG/DL (0.60-1.30)
[2017-11-14] MEDS: FAMOTIDINE 20 MG/2 ML VIAL IV PUSH SCH ×2 (09:18→20:15)
[2017-11-14] MEDS: CARVEDILOL 3.125 MG TAB PO SCH ×2 (09:18→20:14)
[2017-11-14] MEDS: AZITHROMYCIN 250 MG TAB PO SCH (09:18)
[2017-11-14] MEDS: LACTOBACILLUS ACIDOPHILUS TAB PO SCH ×2 (09:18→20:14)
[2017-11-14] MEDS: SODIUM CHLORIDE 0.9% FLUSH 10 ML FLUSH IV FLUSH SCH ×2 (09:18→20:15)
[2017-11-14] MEDS: FUROSEMIDE 40 MG TAB PO SCH (09:18)
[2017-11-14] MEDS: LISINOPRIL 5 MG TAB PO SCH (09:19)
[2017-11-14] MEDS: ASPIRIN EC 81 MG TABEC PO SCH (09:19)
[2017-11-14] MEDS: SODIUM CHLOR 0.9% 1000 ML INJ 1,000 ML IV SCH (09:22)
--- NOTE | 2017-11-14 11:15 | HHI.PR ---
Subjective Remarks Follow-up for syncope and dilated cardiomyopathy Patient has no complains. He was found sleeping. He denies any other syncopal episode. Denies any chest pain, shortness of breathing, palpation, lightheadedness or dizziness. Patient stated that he is getting around the hospital on his own. He is scheduled for ICD this afternoon. Objective Vitals Vital Signs Date Time Temp Pulse Resp B/P (MAP) Pulse Ox O2 Delivery O2 Flow Rate FiO2 11/14/17 10:09 78 11/14/17 09:00 79 11/14/17 08:15 98.1 83 18 97/64 (75) 91 11/14/17 08:15 95 11/14/17 07:11 84 11/14/17 06:00 82 11/14/17 05:00 84 11/14/17 04:00 74 11/14/17 03:00 98.3 77 16 115/69 (84) 91 11/14/17 03:00 85 11/14/17 02:00 70 11/14/17 01:00 66 11/14/17 00:00 78 11/13/17 23:00 98.2 77 12 151/81 (104) 93 11/13/17 23:00 85 11/13/17 22:00 76 11/13/17 21:30 94 21 11/13/17 21:00 68 11/13/17 20:00 98.3 80 20 127/68 (87) 94 11/13/17 20:00 68 11/13/17 19:00 71 11/13/17 18:02 87 11/13/17 17:31 90 11/13/17 16:16 73 11/13/17 15:14 75 11/13/17 15:14 97.4 79 18 111/68 (82) 93 11/13/17 14:05 82 11/13/17 13:15 84 11/13/17 12:01 83 11/13/17 11:27 80 11/13/17 11:27 97.4 96 18 137/81 (99) 96 I/O 11/13/17 11/13/17 11/13/17 11/14/17 11/14/17 11/14/17 07:00 15:00 23:00 07:00 15:00 23:00 Intake Total 240 ml 600 ml Output Total 925 ml 525 ml Balance -685 ml 75 ml Intake Oral 240 ml 600 ml Output Urine Total 925 ml 525 ml # Bowel Movements 1 1 0 Result Diagram: 11/11/17 0407 11/14/17 0518 Objective Remarks GENERAL: in nad NECK: Supple, trachea midline. No JVD or lymphadenopathy. CARDIOVASCULAR: Regular rate and rhythm without murmurs, gallops, or rubs. RESPIRATORY: Breath sounds equal bilaterally. No accessory muscle use. GASTROINTESTINAL: Abdomen soft, non-tender, nondistended. MUSCULOSKELETAL: No cyanosis, or edema. BACK: Nontender without obvious deformity. No CVA tenderness. Medications and IVs Current Medications Methylprednisolone Sodium Succinate (SoluMEDROL INJ) 60 mg ONCE ONCE IV PUSH Last administered on 11/09/17at 20:28; Start 11/09/17 at 20:15; Stop 11/09/17 at 20:16; Status DC Albuterol Sulfate (Albuterol Neb) 2.5 mg Q15M INH Last administered on at 20:52; Start 11/09/17 at 20:15; Stop 11/09/17 at 20:31; Status DC Ibuprofen (Motrin) 600 mg ONCE ONCE PO Last administered on 11/09/17at 20:40; Start 11/09/17 at 20:30; Stop 11/09/17 at 20:31; Status DC Acetaminophen (Tylenol) 650 mg ONCE ONCE PO Last administered on 11/09/17at 20: 40; Start 11/09/17 at 20:30; Stop 11/09/17 at 20:31; Status DC Furosemide (Lasix Inj) 20 mg ONCE ONCE IVP ; Start 11/09/17 at 22:00; Stop at 22:01; Status DC Ceftriaxone Sodium 1000 mg/ Sodium Chloride 100 ml @ 200 mls/hr ONCE ONCE IV Last administered on 11/09/17at 22:07; Start 11/09/17 at 22:00; Stop 11/09/17 at 22:29; Status DC Azithromycin 500 mg/Sodium Chloride 250 ml @ 250 mls/hr ONCE ONCE IV Last administered on 11/09/17at 23:31; Start 11/09/17 at 22:00; Stop 11/09/17 at 22:59 ; Status DC Furosemide (Lasix Inj) 20 mg BID@09,18 IV PUSH Last administered on 11/11/17at 09:03; Start 11/10/17 at 09:00; Stop 11/11/17 at 11:07; Status DC Sodium Chloride (NS Flush) 2 ml UNSCH PRN IV FLUSH FLUSH AFTER USING IV ACCESS ; Start 11/09/17 at 21:30; Stop 11/10/17 at 03:31; Status DC Sodium Chloride (NS Flush) 2 ml BID IV FLUSH ; Start 11/10/17 at 09:00; Stop at 09:00; Status DC Naloxone HCl (Narcan Inj) 0.4 mg UNSCH PRN IV PUSH SEE LABEL COMMENTS; Start at 21:30 Albuterol/ Ipratropium (Duoneb Neb) 1 ampule Q4HR NEB PRN NEB WHEEZING; Start 11/09/17 at 22:00; Stop 11/10/17 at 03:31; Status DC Ceftriaxone Sodium 1000 mg/ Sodium Chloride 100 ml @ 200 mls/hr Q24H IV Last administered on 11/11/17at 20:00; Start 11/10/17 at 20:00; Stop 11/12/17 at 10:17 ; Status DC Azithromycin (Zithromax) 500 mg DAILY PO Last administered on 11/10/17at 08:33; Start 11/10/17 at 09:00; Stop 11/10/17 at 14:02; Status DC Sodium Chloride 500 ml @ 500 mls/hr BOLUS ONCE IV Last administered on at 22:09; Start 11/09/17 at 21:45; Stop 11/09/17 at 22:44; Status DC Sodium Chloride (NS Flush) 2 ml UNSCH PRN IV FLUSH FLUSH AFTER USING IV ACCESS ; Start 11/09/17 at 22:00; Stop 11/10/17 at 03:31; Status DC Sodium Chloride (NS Flush) 2 ml BID IV FLUSH ; Start 11/10/17 at 09:00; Stop at 09:00; Status DC Miscellaneous Information 1 Q361D XX ; Start 11/09/17 at 22:00; Stop 11/10/17 at 03:31; Status DC Chlorhexidine Gluconate (Chlorhexidine 2% Cloth) 3 pack Taper DAILY@04 TOP Last administered on 11/10/17at 01:30; Start 11/10/17 at 04:00; Stop 11/10/17 at 04:00; Status DC Chlorhexidine Gluconate (Chlorhexidine 2% Cloth) 3 pack UNSCH PRN TOP HYGIENIC CARE; Start 11/09/17 at 22:00; Stop 11/10/17 at 03:31; Status DC Dopamine HCl/ Dextrose 500 ml @ 0 mls/hr TITRATE PRN IV Blood Pressure Management Last administered on 11/09/17at 22:32; Start 11/09/17 at 22:00 Terbutaline Sulfate (Brethine Inj) 1 mg UNSCH PRN SQ For Extravasation; Start 11/09/17 at 22:00; Status Cancel Phenylephrine HCl 40 mg/Dextrose 500 ml @ 30 mls/hr TITRATE PRN IV Blood pressure management; Start 11/09/17 at 23:15 Terbutaline Sulfate (Brethine Inj) 1 mg UNSCH PRN SQ For Extravasation; Start 11/09/17 at 23:15 Sodium Chloride 1,000 ml @ 84 mls/hr [id number] IV Last administered on at 04:13; Start 11/10/17 at 03:11; Stop 11/10/17 at 16:00; Status DC Sodium Chloride (NS Flush) 2 ml UNSCH PRN IV FLUSH FLUSH AFTER USING IV ACCESS Last administered on 11/10/17at 04:13; Start 11/10/17 at 03:15 Sodium Chloride (NS Flush) 2 ml BID IV FLUSH Last administered on 11/14/17at 09: 18; Start 11/10/17 at 09:00 Acetaminophen (Tylenol) 650 mg Q6H PRN PO PAIN 1-10 AND/OR FEVER >101F Last administered on 11/11/17at 14:48; Start 11/10/17 at 03:15 Famotidine (Pepcid Inj) 20 mg Q12HR IV PUSH Last administered on 11/13/17at 08: 22; Start 11/10/17 at 09:00; Stop 11/13/17 at 12:34; Status DC Ondansetron HCl (Zofran Inj) 4 mg Q6H PRN IV PUSH NAUSEA OR VOMITING; Start at 03:15 Zolpidem Tartrate (Ambien) 5 mg HS PRN PO INSOMNIA Last administered on at 23:46; Start 11/10/17 at 03:15 Albuterol/ Ipratropium (Duoneb Neb) 1 ampule Q6HR NEB INH Last administered on 11/14/17at 03:58; Start 11/10/17 at 04:00; Stop 11/14/17 at 03:59; Status DC Albuterol/ Ipratropium (Duoneb Neb) 1 ampule Q2HR NEB PRN INH WHEEZING; Start 11/10/17 at 03:15 Heparin Sodium (Porcine) (Heparin Inj) 5,000 units Q8H SQ Last administered on 11/13/17at 11:15; Start 11/10/17 at 03:15 Miscellaneous Information 1 Q361D XX ; Start 11/10/17 at 03:15 Chlorhexidine Gluconate (Chlorhexidine 2% Cloth) 3 pack Taper DAILY@04 TOP ; Start 11/10/17 at 04:00; Stop 11/06/18 at 03:59 Chlorhexidine Gluconate (Chlorhexidine 2% Cloth) 3 pack UNSCH PRN TOP HYGIENIC CARE; Start 11/10/17 at 03:15 Senna/Docusate Sodium (Anna-Colace) 1 tab BID PO Last administered on at 21:03; Start 11/10/17 at 09:00; Stop 11/12/17 at 10:13; Status DC Magnesium Hydroxide (Milk Of Magnesia Liq) 30 ml Q12H PRN PO Mild constipation ; Start 11/10/17 at 03:15 Sennosides (Senokot) 17.2 mg Q12H PRN PO Moderate constipation; Start 11/10/17 at 03:15; Stop 11/12/17 at 10:13; Status DC Bisacodyl (Dulcolax Supp) 10 mg DAILY PRN RECTAL SEVERE CONSITIPATION/ IF NPO; Start 11/10/17 at 03:15; Stop 11/12/17 at 10:13; Status DC Lactulose (Lactulose Liq) 30 ml DAILY PRN PO SEVERE CONSITIPATION/ IF PO; Start 11/10/17 at 03:15; Stop 11/12/17 at 10:13; Status DC Piperacillin Sod/ Tazobactam Sod 100 ml @ 200 mls/hr Q6H IV Last administered on 11/12/17at 09:17; Start 11/10/17 at 03:30; Stop 11/12/17 at 10:14; Status DC Azithromycin 500 mg/Sodium Chloride 250 ml @ 250 mls/hr Q24H IV Last administered on 11/11/17at 22:00; Start 11/10/17 at 22:00; Stop 11/12/17 at 10:13 ; Status DC Gadodiamide (Omniscan Pf Inj) 16 ml STK-MED ONCE IVCONTRAST Last administered on 11/10/17at 10:01; Start 11/10/17 at 10:01; Stop 11/10/17 at 10:02; Status DC Atorvastatin Calcium (Lipitor) 80 mg HS PO Last administered on 11/13/17at 21:26 ; Start 11/10/17 at 21:00 Carvedilol (Coreg) 3.125 mg Q12HR PO Last administered on 11/14/17at 09:18; Start 11/10/17 at 21:00 Lisinopril (Prinivil) 2.5 mg DAILY PO Last administered on 11/14/17at 09:19; Start 11/11/17 at 09:00 Isosorbide Mononitrate (Imdur) 30 mg DAILY@07 PO Last administered on at 06:42; Start 11/11/17 at 07:00 Aspirin (Ecotrin Ec) 81 mg DAILY PO Last administered on 11/14/17at 09:19; Start 11/10/17 at 20:00 Iohexol (Omnipaque 350 Inj) 75 ml STK-MED ONCE IVCONTRAST Last administered on 11/10/17at 22:51; Start 11/10/17 at 22:51; Stop 11/10/17 at 22:52; Status DC Regadenoson (Lexiscan Inj) 0.4 mg STK-MED ONCE .ROUTE Last administered on 11/11at 10:21; Start 11/11/17 at 10:21; Stop 11/11/17 at 10:22; Status DC Furosemide (Lasix) 40 mg DAILY PO Last administered on 11/14/17at 09:18; Start 11/12/17 at 09:00 Miscellaneous (Pill Splitter) 1 ea UNSCH PRN OTHER SEE LABEL COMMENTS; Start at 09:30 Lactobacillus Acidophilus (Lactinex) 1 tab Q12HR PO Last administered on at 09:18; Start 11/12/17 at 10:15 Azithromycin (Zithromax) 500 mg DAILY PO Last administered on 11/14/17at 09:18; Start 11/12/17 at 10:30 Sodium Chloride 1,000 ml @ 100 mls/hr Q10H IV Last administered on 11/14/17at 09:22; Start 11/14/17 at 09:00 Cefazolin Sodium 1000 mg/Sodium Chloride 250 ml @ 0 mls/hr ONCE IV ; Start 11/14 at 14:00; Stop 11/14/17 at 23:59 Vancomycin HCl 1000 mg/Sodium Chloride 250 ml @ 0 mls/hr ONCE IV ; Start at 14:00; Stop 11/14/17 at 23:59 Povidone Iodine (Betadine 5% Antisepsis Kit) 1 applic ONCE TOPICAL ; Start 11/13 at 20:00; Stop 11/13/17 at 23:59; Status DC Mupirocin (Bactroban Nasal 2% Oint) 1 applic ONCE EACH NARE Last administered on 11/13/17at 23:10; Start 11/13/17 at 20:00; Stop 11/13/17 at 23:59; Status DC Chlorhexidine Gluconate (Chlorhexidine 2% Cloth) 1 pack ONCE TOPICAL ; Start at 20:00; Stop 11/13/17 at 23:59; Status DC Famotidine (Pepcid Inj) 10 mg Q12HR IV PUSH Last administered on 11/14/17at 09: 18; Start 11/13/17 at 21:00 A/P Problem List: (1) Syncope ICD Code: R55 - Syncope and collapse Status: Acute (2) Hypertension ICD Code: I10 - Essential (primary) hypertension Status: Chronic (3) CAD (coronary artery disease) ICD Code: I25.10 - Atherosclerotic heart disease of [place] coronary artery without angina pectoris Status: Chronic (4) PNA (pneumonia) ICD Code: J18.9 - Pneumonia, unspecified organism (5) Dilated cardiomyopathy ICD Code: I42.0 - Dilated cardiomyopathy Status: Chronic Assessment and Plan 77-year-old man with Syncope - Ultrasound carotid- CTA recommended due to high velocities and extensive calcification -stress test 11/11/17 with global hypokinesis and reduction in ejection fraction and no significant ischemia - 2-D echo with EF 20-25% and plan for ICD tomorrow. -Per Neurology if EF<20% consider to start patient on Coumadin instead Plavix Dilated cardiomyopathy -EF 20-25% -Patient scheduled for ICD this afternoon. -Continue with Coreg, lisinopril 2.5 mg daily, Lasix 40 mg daily -No evidence of CHF exacerbation Coronary artery disease -Nuclear stress test without any evidence of ischemia -Continue current medical management Pneumonia - Discontinue Rocephin and switch to by mouth azithromycin 500 mg daily -Negative chest x-ray and asymptomatic. - Blood and urine cultures cultures NTD Diarrhea -on Lactinex Hypotension-resolved - s/p IV fluids resuscitation History of chronic systolic CHF -Continue with Imdur, Prinivil, Coreg -2-D echo with 20-25% Hyperlipidemia -Currently on statin DVT GI prophylaxis - Teds SCDs - Subcutaneous heparin - Pepcid Discharge Planning Patient scheduled for ICD this afternoon. Anticipating discharge tomorrow. Problem Qualifiers (1) Syncope: Qualified Codes: R55 - Syncope and collapse (2) Hypertension: Qualified Codes: I10 - Essential (primary) hypertension (3) CAD (coronary artery disease): Qualified Codes: I25.10 - Atherosclerotic heart disease of [place] coronary artery without angina pectoris Leny Whalen MD Nov 14, 2017 11:15
[2017-11-14] MEDS ORDERED: ceFAZolin INJ 1,000 MG in SODIUM CHLORIDE 0.9% INJ 250 ML IV SCH (14:00)
[2017-11-14] MEDS ORDERED: VANCOMYCIN INJ 1,000 MG in SODIUM CHLOR 0.9% 250 ML INJ 250 ML IV SCH (14:00)
[2017-11-14] MEDS ORDERED: ceFAZolin INJ 1,000 MG VIAL ONE (16:19)
[2017-11-14] MEDS ORDERED: VANCOMYCIN HCL 1000 MG VIAL ONE (16:19)
[2017-11-14] MEDS ORDERED: LIDOCAINE HCL 2% 50 ML VIAL ONE (16:19)
[2017-11-14] MEDS ORDERED: MIDAZOLAM HCL 2 MG/2 ML VIAL ONE (17:19)
[2017-11-14] MEDS ORDERED: traMADol HCL 50 MG TAB PO PRN (17:30)
--- NOTE | 2017-11-14 17:38 | CATHPROC ---
Patient Name: DAKSHA ELAM Study #: [id number] Initial MD: Robin Lambert Date of : 1940 Study Date: 11/14/2017 Cardiac Catheterization Report 11/14/2017 5:42:07 PM Financial #: [id number] 1 of 9 Patient Name: DAKSHA ELAM Study #: [id number] Initial MD: Robin Lambert Date of : 1940 Study Date: 11/14/2017 Entire Case Report Patient Information Patient Name DAKSHA ELAM Date of 1940 Age 77 years Financial # [id number] Gender M AlternateID Lab Number 6 Room Number 247 Height (in) 70.0 Height (cm) 177.8 BSA 1.97 Weight (lbs) 175.1 Weight (kg) 79.6 Patient Address/Phone Number Home Address [facility] Home Phone Number [phone] [facility] [address] Study Information Study Number Admission Scheduled Start Study Start [id number] Nov 09 2017 9:21PM 11/14/2017 Nov 14 2017 4:32PM [place] Service Cardiac Pacer/ICD Admit Source Facility Department Other [facility] - Civil Preparedness Coordinator Physician and Clinical Staff Initial Robin Bradley Insight Leader Susan Raman RCIS TECH2 Other Anesthesia, GRAZING AIDE Recorder Sushma Sherman,HILARY Parraub Carissa Berry,ELECTRONIC DEVICE MONITOR TECH2 Procedures Performed Procedure Location (Site) Vessel Name Lead Insertion Venogram Antecubital (left) Antecubital Vein 11/14/2017 5:42:07 PM Financial #: [id number] 2 of 9 Patient Name: DAKSHA ELAM Study #: [id number] Initial MD: Robin Lambert Date of : 1940 Study Date: 11/14/2017 Equipment Time Planning Associate Description Size Mfg Part Number Used/Scraped DEFIBRILLATOR, INTICA 7 VR-T 17:12 BIOTRONIK VVE-VDDR [id number] Used DX 17:06 BIOTRONIK LEAD, PLEXA PRO-MRI DF 65/15 [id number] Used TP-1103 17:00 MEDLINE INDUSTRIES SUTURE, STRIP PLUS 1/2" * Used *[id number] 17:00 MEDLINE PACER ADHESIVE, MASTISOL 2/3CC 2/3CC 0523-48 Used 17:00 MEDLINE PACER TAVARES, LIMB * 2530 *[id number] Used [id number] 17:00 MEDLINE PACER PACK, PACER CUSTOM * Used *[id number] 17:00 MEDLINE PACER PEN, SKIN DUAL W/ RULER * Used *[id number] 17:06 [facility] Swift Shift PACER SAFE SHEATH, FR8, 13CM FR 8 [id number] Used 16:58 Needle Sponge Count 2 22 Used 16:58 Needle Sponge Count 20 200 Used 16:58 Needle Sponge Count 25 1 Used 16:58 Needle Sponge Count 3 3 Used 17:01 NYCOMED OMNIPAQUE, 300 MG, 50ML 50ML [id number] Used [id number] *[id number] SUTURE, 3-0 VICRYL [SH] (UCL255F) SUTURE, 3-0 VICRYL [SH] ([id number]) SUTURE, 4-0 MONOCRYL [PS2] (Y496G) [id number] 17:00 [employer],WARM AIR CCL * Used *[id number] [facility] PAD, ELECTROSURGICAL 17:00 * [id number] *[id number] Used SURGICAL GROUNDING ORANGE [id number] 17:00 [employer]. / * Used *15631 Equipment Model, Serial, Lot Number and Expiration Data Description Model Number Serial Number Lot Number Expiration Date DEFIBRILLATOR, INTICA 7 VR-T DX [id number] 02-19-2019 LEAD, PLEXA PRO-MRI DF 65/15 [id number] 09-21-2019 Insurance Information Insurance Payor Private Health Insurance Third Green Party Third Green Party Number HU[employer] GOLD PLUS HMO HUMCRHMO 11/14/2017 5:42:07 PM Financial #: [id number] 3 of 9 Patient Name: DAKSHA ELAM Study #: [id number] Initial MD: Robin Lambert Date of : 1940 Study Date: 11/14/2017 History: Allergies Allergy Reaction No Known Allergies History: Risk Factors Family History of Hypertension Dyslipidemia Premature CAD Yes Yes Yes Cerebrovascular Peripheral Artery Disease Disease History: Risk Factors Selection Items Current Smoker Labs Hgb (g/dl) Hct (%) RBC (MIL/MM3) WBC (l/cumm) Platelets (thousands) 11.60-17.00 35.00-51.00 4.00-5.90 4.00-11.00 150.00-450.00 13.8 39.9 6.1 4.2 124 Glucose (mg/dl) BUN (mg/dl) Creatinine (mg/dl) BUN:Creatinine (1:x) 74.00-106.00 7.00-18.00 0.50-1.30 10.00-20.00 84 20 1.0 20 Na (meq/l) K (meq/l) 136.00-145.00 3.50-5.10 140 3.8 INR (PTT:PT) 0.90-1.10 1 Medication Medication Total Dose (Bolus/Oral) Medication Total Dosage/Unit 2% XYLOCAINE 50 mL Medications (Bolus/Oral) Medication Time Given Dosage/Unit Administered By Reason 2% XYLOCAINE 11/14/2017 5:00:52 PM 50 mL Robin Lambert 50 mL 2% XYLOCAINE given in lab by Robin Lambert in Left shoulder via Subcutaneous. Ordered by Robin Lambert. 11/14/2017 5:42:07 PM Financial #: [id number] 4 of 9 Patient Name: DAKSHA ELAM Study #: [id number] Initial MD: Robin Lambert Date of : 1940 Study Date: 11/14/2017 Medication (Drip) Medication Time Given Dosage/Unit Concentration/Unit Diluent (ml) Solution ANCEF 11/14/2017 4:52:00 PM 2 g 2 g ANCEF given in lab by Anesthesia, GRAZING AIDE via Peripheral IV. Ordered by Robin Lambert. Reason: As per physicians verbal order. VANCOMYCIN DRIP 11/14/2017 4:52:00 PM 1 g 1 g VANCOMYCIN DRIP given in lab by Anesthesia, GRAZING AIDE via Peripheral IV. Ordered by Robin Lambert. Reas on: As per physicians verbal order. Initial Case Assessment Cardiovascular HR NIBP 81 173/82 Edema Present Skin color Skin None Normal Warm Dry Circulatory - Right Pulses Dorsalis Pedis 1 Scale (0,1,2,3,4,d) Circulatory - Left Pulses Dorsalis Pedis 1 Scale (0,1,2,3,4,d) Circulatory - Lower Extremities Color Lower Right Color Lower Left Normal Normal Neurological State Oriented to time-place- Alert Moves all extremities person Respiration - General Respiration Rate SpO2 (%) (B/min) 20 95 11/14/2017 5:42:07 PM Financial #: [id number] 5 of 9 Patient Name: DAKSHA ELAM Study #: [id number] Initial MD: Robin Lambert Date of : 1940 Study Date: 11/14/2017 Final Case Assessment Cardiovascular HR NIBP 80 147/77 Edema Present Skin color Skin None Normal Warm Dry Circulatory - Right Pulses Dorsalis Pedis 1 Scale (0,1,2,3,4,d) Circulatory - Left Pulses Dorsalis Pedis 1 Scale (0,1,2,3,4,d) Circulatory - Lower Extremities Color Lower Right Color Lower Left Normal Normal Neurological State Oriented to time-place- Alert Moves all extremities person Respiration - General Respiration Rate SpO2 (%) (B/min) 18 96 Chronological Log Time Study Chronological Log 16:06:00 Patient arrived via Bed. 16:06:00 Patient Name, D.O.B, / Armband Verified By R.N. 16:06:51 Consent signed by the physician and the patient and verified by the Civil Preparedness Coordinator staff. 16:07:03 History and physical on the chart or being dictated. 16:07:20 Pre-op and post- op instructions given; patient acknowledges understanding of instructions. 16:08:10 Verbal Stimulation=2 Physical Stimulation=2 Airway=2 Respiration=2 TOTAL=8. (0=absent, 1=li mited, 2=present) 16:08:33 Skin Breakdown- none per pt 16:10:52 Patient Warmer Placed on the Table. 16:10:57 Disposable Defibrillator Pads Placed On Patient. 11/14/2017 5:42:07 PM Financial #: [id number] 6 of 9 Patient Name: DAKSHA ELAM Study #: [id number] Initial MD: Robin Lambert Date of : 1940 Study Date: 11/14/2017 16:11:03 Ray Prominences Protected 16:11:13 A # 20 IV was noted in the Hand (left). Grade = 0 16:33:12 Patient has been NPO for More than 6Hrs. 16:33:53 Table restraints applied according to hospital policy 16:34:33 2% CHLORHEXIDINE GLUCONATE WASH AND NASAL SWIPE DONE PRIOR TO PROCEDURE. 16:37:27 Anesthesia at bedside. Assumes care of patient. 16:38:57 A # 20 IV was noted in the Hand (right). Grade = 0 0.9% NaCl @ kvo 16:39:59 A # 18 IV was noted in the Forearm (right). Grade = 0 0.9% NaCl @ KVO 16:40:18 A # 20 IV was noted in the Antecubital (right). Grade = 0 SL 16:44:19 Bovie ground pad applied to: right thigh Assessment: Initial Case, HR=81 BPM, NYFX=048/82 mmhg, Edema=None, Color=Normal, Skin = Warm, D ry Right Pulses: Benigno Ped=1 Left Pulses: Benigno Ped=1 16:45:00 Lower Right Extremities: Color=Normal Lower Left Extremities: Color=Normal Neurological: State=Alert, Ox3, COLIN Respiration: Resp=20 B/min, SpO2=95 % 16:45:03 Left Upper Chest Prepped Times Two. 16:49:16 A sterile drape was applied after a 3min waiting period. First Sponge And Instrument Count Done by Carissa Berry, ELECTRONIC DEVICE MONITOR TECH2. 16:51:16 Hypo's: 3, Sponges: 25, Bovie/scratch: 2 Sutures: 5, Blades: 2, Instruments: 26, Syveck Patches: ~SYVECK PATCH~ verified by RW 2 g ANCEF given in lab by Anesthesia, GRAZING AIDE via Peripheral IV. Ordered by Robin Lambert. Reason: As per physicians 16:52:00 verbal order. 1 g VANCOMYCIN DRIP given in lab by Anesthesia, GRAZING AIDE via Peripheral IV. Ordered by Robin Lambert . Reason: As per 16:52:00 physicians verbal order. 16:53:34 MD arrived. Time Out. Correct patient, procedure, procedure equipment, site and side verified with physicia n present. Time 16:55:45 concurred by MD, individual staff and GRAZING AIDE. Time Out #2 - Consents verified, patient in correct position, all results are labled and displa yed, safety precautions 16:55:50 taken, antibiotics administered. Time out concurred by MD, individual staff and GRAZING AIDE in procedu re 16:56:05 Case Start 17:00:29 Reference ECG taken 17:00:52 50 mL 2% XYLOCAINE given in lab by Robin Lambert in Left shoulder via Subcutaneous. Ordered by Robin Lambert. 17:02:31 The Antecubital (left) was manually injected with 15 cc's of contrast. OMNIPAQUE, 300 MG, 5 0ML 50ML used. 17:04:17 Vascular access was obtained in the Subclav. Vein (Lft. 17:04:24 A SAFE SHEATH, FR8, 13CM FR 8 was advanced into the Fem Vein (right) using the Modified Bridgette samanta technique. 17:05:11 A LEAD, PLEXA PRO-MRI DF 65/15 was inserted and positioned in the RV. 17:06:46 Lead placement verified under fluoroscopy 17:08:53 The RV lead impedance and threshold being tested. 17:11:28 The RV lead was sutured to the fascia. 17:13:46 Testing the device. 11/14/2017 5:42:07 PM Financial #: [id number] 7 of 9 Patient Name: DAKSHA ELAM Study #: [id number] Initial MD: Robin Lambert Date of : 1940 Study Date: 11/14/2017 17:14:51 A DEFIBRILLATOR, INTICA 7 VR-T DX VVE-VDDR was connected and placed in the pocket. Second Sponge And Instrument Count Done by Carissa Berry, ELECTRONIC DEVICE MONITOR TECH2. 17:16:07 Hypo's: 3, Sponges: 25, Bovie/scratch: 2 Sutures: 5, Blades: 2, Instruments: 26, Syveck Patches: ~SYVECK PATCH~ verified by RW 17:19:03 The pocket is being closed. 17:19:59 Implant Procedure was performed. 17:20:05 A ICD Implant . (Single) 17:21:00 A two Joul DFT was performed. 17:21:08 The DFT was Success at 20 Joules, 82 Ohms lead impedance and 3.9 ms charge time. 17:21:22 CICU called. Spoke to Jenny. 17:21:29 Bedside Report will be given. 17:23:20 Implantable Device card placed in patient's chart. 17:35:47 The pocket was closed. Final Sponge And Instrument Count Done by Carissa Berry, ELECTRONIC DEVICE MONITOR TECH2. 17:36:58 Hypo's: 3, Sponges: 25, Bovie/scratch: 2 Sutures: 5, Blades: 2, Instruments: ~INSTRU~, Syveck Patches: ~SYVECK PATCH~ verified by RW 17:37:06 Steri-strips and a sterile dressing applied to site. 17:39:51 Case End Assessment: Final Case, HR=80 BPM, HCUA=670/77 mmhg, Edema=None, Color=Normal, Skin = Warm, Dr y Right Pulses: Benigno Ped=1 Left Pulses: Benigno Ped=1 17:40:37 Lower Right Extremities: Color=Normal Lower Left Extremities: Color=Normal Neurological: State=Alert, Ox3, COLIN Respiration: Resp=18 B/min, SpO2=96 % 17:42:03 Patient moved to stretcher 17:42:24 A sling was placed on the affected arm. 17:45:25 Pt transported via bed back to [facility] in stable condition with RN and tech accompanying. End Study - Contrast Media Used In Study Contrast Total Opened (mL) Total Used (mL) Total Wasted (mL) Omnipaque 50 15 35 End Study - Maximum Contrast Load Max Contrast Load (mL) 398.0 End Study - Radiation Exposure Fluoro Time (minutes) 3.4 11/14/2017 5:42:07 PM Financial #: [id number] 8 of 9 Patient Name: DAKSHA ELAM Study #: [id number] Initial MD: Robin Lambert Date of : 1940 Study Date: 11/14/2017 End Study - Patient Disposition Complications Transferred To Interventional Outcome No Telemetry Bed successful 11/14/2017 5:42:07 PM Financial #: [id number]
[2017-11-14] MEDS ORDERED: DO NOT ADM ANY ANTICOAGULANT DRUGS PRN (17:39)
--- NOTE | 2017-11-14 19:12 | RADRPT ---
EXAM DATE/TIME: 11/14/2017 18:08 [place] COMPARISON: CHEST SINGLE AP, November 13, 2017, 4:06. INDICATIONS : Evaluate for pneumothorax. MEDICAL HISTORY : Peripheral vascular disease. Hypertension SURGICAL HISTORY : Carotid endarterectomy. ENCOUNTER: Subsequent ACUITY: 1 day PAIN SCORE: 0/10 LOCATION: Bilateral chest FINDINGS: Pacer lead overlies right ventricle. Heart size mildly enlarged a mildly tortuous aorta. Linear scarr ing or atelectasis at the bases. Right-sided pleural calcification. CONCLUSION: 1. Minimal basal atelectasis or scarring. Right-sided pleural calcification. No pneumothorax. Alvaro Colin MD on November 14, 2017 at 19:08 Board Certified Radiologist. This report was verified electronically.
[2017-11-14] MEDS: ATORVASTATIN 80 MG TAB PO SCH (20:14)
[2017-11-15] VITALS (12 sets, daily range): BP systolic 105–162; BP diastolic 52–86; PULSE 44–82; RESP 16–18; TEMP 97.7–98.2; O2SAT 92–95
[2017-11-15] MEDS: HEPARIN SODIUM - SQ 10,000 UNITS/ML VIAL SQ SCH (02:15)
[2017-11-15] MEDS: CHLORHEXIDINE GLUCONATE 2 % 1 PACK (2 CLOTHS) TOP SCH (04:00)
[2017-11-15] MEDS ORDERED: VANCOMYCIN INJ 1,000 MG in SODIUM CHLOR 0.9% 250 ML INJ 250 ML IV ONE (04:30)
[2017-11-15] MEDS: ISOSORBIDE MONONITRATE 30 MG TAB PO SCH (06:33)
--- NOTE | 2017-11-15 08:22 | PD.CARD.PN ---
Subjective Subjective Remarks Denies dyspnea, angina, dizziness, palpitations, recurrent syncope. Mild to moderate incisional pain. Objective Medications Item Value Date Time Furosemide 40 mg 11/12/17 0900 (Lasix) DAILY/PO 11/14/17917 Lisinopril 2.5 mg 11/11/17 0900 (Prinivil) DAILY/PO 11/14/17918 Isosorbide 30 mg 11/11/17 0700 Mononitrate DAILY@07/PO 11/15/17 0633 (Imdur) Atorvastatin 80 mg 11/10/172099 Calcium HS/PO 11/14/172013 (Lipitor) Carvedilol 3.125 mg 11/10/172099 (Coreg) Q12HR/PO 11/14/172013 Aspirin 81 mg 11/10/171999 (Ecotrin Ec) DAILY/PO 11/14/17918 Current Medications Medications (Trade) Dose Ordered Sig/Cristine Route Start Time Stop Time Status Last Admin (Narcan Inj) 0.4 mg UNSCH PRN IV PUSH 11/09/17 21:30 Dopamine HCl/ Dextrose 500 ml @ 0 mls/hr TITRATE PRN IV 11/09/17 22:00 11/09/17 22:32 Phenylephrine HCl 40 mg/Dextrose 500 ml @ 30 mls/hr TITRATE PRN IV 11/09/17 23:15 (Brethine Inj) 1 mg UNSCH PRN SQ 11/09/17 23:15 (NS Flush) 2 ml UNSCH PRN IV FLUSH 11/10/17 03:15 11/10/17 04:13 (NS Flush) 2 ml BID IV FLUSH 11/10/17 09:00 11/14/17 20:15 (Tylenol) 650 mg Q6H PRN PO 11/10/17 03:15 11/11/17 14:48 (Zofran Inj) 4 mg Q6H PRN IV PUSH 11/10/17 03:15 (Ambien) 5 mg HS PRN PO 11/10/17 03:15 11/11/17 23:46 (Duoneb Neb) 1 ampule Q2HR NEB PRN INH 11/10/17 03:15 (Heparin Inj) 5,000 units Q8H SQ 11/10/17 03:15 11/15/17 02:15 Miscellaneous Information 1 Q361D XX 11/10/17 03:15 (Chlorhexidine 2% Cloth) Taper DAILY@04 TOP 11/10/17 04:00 11/06/18 03:59 11/15/17 04:00 (Chlorhexidine 2% Cloth) 3 pack UNSCH PRN TOP 11/10/17 03:15 (Milk Of Sana Liq) 30 ml Q12H PRN PO 11/10/17 03:15 (Lipitor) 80 mg HS PO 11/10/17 21:00 11/14/17 20:14 (Coreg) 3.125 mg Q12HR PO 11/10/17 21:00 11/14/17 20:14 (Prinivil) 2.5 mg DAILY PO 11/11/17 09:00 11/14/17 09:19 (Imdur) 30 mg DAILY@07 PO 11/11/17 07:00 11/15/17 06:33 (Ecotrin Ec) 81 mg DAILY PO 11/10/17 20:00 11/14/17 09:19 (Lasix) 40 mg DAILY PO 11/12/17 09:00 11/14/17 09:18 (Pill Splitter) 1 ea UNSCH PRN OTHER 11/12/17 09:30 (Lactinex) 1 tab Q12HR PO 11/12/17 10:15 11/14/17 20:14 (Zithromax) 500 mg DAILY PO 11/12/17 10:30 11/14/17 09:18 Sodium Chloride 1,000 ml @ 100 mls/hr Q10H IV 11/14/17 09:00 11/14/17 09:22 (Pepcid Inj) 20 mg Q12HR IV PUSH 11/14/17 21:00 11/14/17 20:15 (Ultram) 50 mg Q6HR PRN PO 11/14/17 17:30 11/14/17 20:14 Miscellaneous Information ALL NURSING DEPARTME... UNSCH PRN .XX 11/14/17 17:39 11/15/17 17:38 Vital Signs / I&O Vital Signs Date Time Temp Pulse Resp B/P (MAP) Pulse Ox O2 Delivery O2 Flow Rate FiO2 11/15/17 07:15 98.2 81 16 162/86 (111) 92 11/15/17 07:15 66 11/15/17 06:00 71 11/15/17 05:00 71 11/15/17 04:00 97.7 44 18 114/52 (72) 95 11/15/17 04:00 70 11/15/17 03:00 73 11/15/17 02:00 72 11/15/17 01:00 67 11/15/17 00:00 97.8 67 18 117/66 (83) 95 11/15/17 00:00 67 11/14/17 23:00 67 11/14/17 22:00 79 11/14/17 21:00 74 11/14/17 20:00 87 11/14/17 19:00 82 11/14/17 19:00 98.0 83 18 123/64 (83) 94 11/14/17 18:07 91 11/14/17 16:00 82 11/14/17 15:11 78 11/14/17 15:11 98.2 78 18 118/59 (78) 93 11/14/17 14:01 80 11/14/17 13:06 92 11/14/17 12:23 81 11/14/17 11:52 76 11/14/17 11:52 98.0 81 18 107/63 (78) 91 11/14/17 10:09 78 11/14/17 09:00 79 I/O 11/14/17 11/14/17 11/14/17 11/15/17 11/15/17 11/15/17 07:00 15:00 23:00 07:00 15:00 23:00 Intake Total 620 ml 420 ml 250 ml Output Total 400 ml 600 ml Balance 220 ml -180 ml 250 ml Intake Oral 120 ml 420 ml IV Total 500 ml 250 ml Output Urine Total 400 ml 600 ml # Voids 2 # Bowel Movements 0 0 0 Physical Exam GENERAL: Well developed, well nourished. No acute distress. HEENT: Jugular venous pressure is normal. CHEST: Diminished breath sounds diffusely. No rales or rhonchi. ICD site clean , dry, intact, no hematoma or ecchymosis. CARDIAC: Regular rate and rhythm without S3, S4. I/ BRANDON RUSB with diminished S2. ABDOMEN: Soft, nontender, no hepatosplenomegaly. Bowel sounds present. EXTREMITIES: No clubbing, cyanosis, or edema. Imaging Last 24 hours Impressions Chest X-Ray 11/14/17 0298 Signed Impressions: Service Date/Time: Tuesday, November 14, 2017 18:08 - CONCLUSION: 1. Minimal basal atelectasis or scarring. Right-sided pleural calcification. No pneumothorax. Alvaro Colin MD Assessment and Plan Problem List: (1) S/P implantation of automatic cardioverter/defibrillator (AICD) ICD Codes: Z95.810 - Presence of automatic (implantable) cardiac defibrillator Status: Acute Plan: Stable overnight. ICD site OK. ICD re-interrogation by [employer] rep shows stable, good pacing/defibrillatory parameters. OK to discharge home today from cardiac standpoint on current medications plus Levaquin 500 mg qd for 7 days, f/u in our office next week. Scripts written. (2) Syncope ICD Codes: R55 - Syncope and collapse Status: Acute Plan: Stable since admission. No recurrent syncope. Monitoring uneventful. Suspect syncope was due to orthostatic hypotension or vasovagal mediated but with his history of severe LV dysfunction, consider he had VT or VF. Patient now s/p ICD implant. (3) CAD (coronary artery disease) ICD Codes: I25.10 - Atherosclerotic heart disease of [place] coronary artery without angina pectoris Status: Chronic Plan: Stable. No recent angina. No ischemia on nuclear stress testing. There is fixed inferior defect c/w prior infarction in this region. Rec continued medical therapy of his CAD. (4) Dilated cardiomyopathy ICD Codes: I42.0 - Dilated cardiomyopathy Status: Chronic Plan: EF ~25% by echo this admission. Continue beta melchor, BHAVNA-I, furosemide. No CHF at present. Clear chest x-ray yesterday. (5) Hypertension ICD Codes: I10 - Essential (primary) hypertension Status: Chronic Plan: Stable. Mostly normotensive. Problem Qualifiers (1) Syncope: Qualified Codes: R55 - Syncope and collapse (2) CAD (coronary artery disease): Qualified Codes: I25.10 - Atherosclerotic heart disease of [place] coronary artery without angina pectoris (3) Hypertension: Qualified Codes: I10 - Essential (primary) hypertension Robin Lambert MD Nov 15, 2017 08:22
[2017-11-15] MEDS: SODIUM CHLORIDE 0.9% FLUSH 10 ML FLUSH IV FLUSH SCH (08:23)
[2017-11-15] MEDS: SODIUM CHLOR 0.9% 1000 ML INJ 1,000 ML IV SCH (08:23)
[2017-11-15] MEDS: ASPIRIN EC 81 MG TABEC PO SCH (08:24)
[2017-11-15] MEDS: LISINOPRIL 5 MG TAB PO SCH (08:24)
[2017-11-15] MEDS: CARVEDILOL 3.125 MG TAB PO SCH (08:24)
[2017-11-15] MEDS: FUROSEMIDE 40 MG TAB PO SCH (08:24)
[2017-11-15] MEDS: LACTOBACILLUS ACIDOPHILUS TAB PO SCH (08:25)
[2017-11-15] MEDS: FAMOTIDINE 20 MG/2 ML VIAL IV PUSH SCH (08:25)
[2017-11-15] MEDS: AZITHROMYCIN 250 MG TAB PO SCH (08:25)
--- NOTE | 2017-11-15 08:29 | MP ---
cc: GABO LÓPEZ DATE OF SURGERY 11/14/2017 PROCEDURE Single chamber AICD implantation via the left subclavian vein, AICD defibrillation threshold testing INDICATIONS Severe primarily nonischemic cardiomyopathy, primary prevention of sudden cardiac . OPERATIVE NOTE The patient was brought to the operating suite in a fasting state after having signed informed consent. The left upper chest was prepped and draped as per policy and anesthetized with 1% lidocaine. A transverse incision was made inferior to the left clavicle and using blunt dissection, a subcutaneous pocket was formed down to the pectoralis fascia. After administration of contrast through a left arm peripheral IV, central venous access was obtained via the left subclavian vein without difficulty and an 8-Divehi sheath placed. Through this sheath, a ventricular active fixation lead was introduced and its tip positioned in the right ventricular apex where a good current of injury, stimulation threshold in (1.1 volts) and sensitivity (11.1 mV) were demonstrated. This lead was secured into place using 2-0 silk ties down to the pectoralis fascia. The lead also has atrial sensing capability and the P-wave was measured at 7.4 mV. The leads were then connected to the AICD generator which is a Biotronik Intica device. The leads and the generator were placed back into the subcutaneous pocket which was partially closed using 3-0 Vicryl interrupted stitches to close the deepest subcutaneous layer. Testing of the device was then performed. Ventricular fibrillation was induced. The patient was successfully rescued with a 20 joules shock after a charge time of 4 seconds at a shock impedance of 82 ohms. The pocket was further closed using another layer of 3-0 Vicryl interrupted stitches and then 4-0 Monocryl running stitch to close the subcuticular tissue. Overlapping Steri-Strips and a pressure dressing were applied. There were no apparent immediate complications. A portable chest x-ray is pending at the time of this dictation. CONCLUSION Successful single chamber (with atrial sensing capability) AICD implantation via the left subclavian vein using a Biotronik Intica AICD generator, status post AICD defibrillation threshold testing. MD CLIFTON Velasco/SAL /5:24 PM /8:21 AM MTDD
[2017-11-15] MEDS ORDERED: FURO40TA PO (09:03)
[2017-11-15] MEDS ORDERED: LISI-519 PO (09:03)
[2017-11-15] MEDS ORDERED: ISOS30TA3 PO (09:03)
[2017-11-15] MEDS ORDERED: CARV3.125 PO (09:03)
[2017-11-15] MEDS ORDERED: TRAM50 PO (09:03)
--- NOTE | 2017-11-15 09:06 | HHI.DS ---
Discharge Summary Admission Date Nov 09, 2017 at 21:21 Discharge Date: Nov 15, 2017 Admitting Diagnosis BILATERAL PNA V CHF, ELEVATED TROPONIN (1) Syncope ICD Code: R55 - Syncope and collapse Diagnosis: Principal Status: Acute (2) Hypertension ICD Code: I10 - Essential (primary) hypertension Diagnosis: Secondary Status: Chronic (3) CAD (coronary artery disease) ICD Code: I25.10 - Atherosclerotic heart disease of [place] coronary artery without angina pectoris Diagnosis: Secondary Status: Chronic (4) PNA (pneumonia) ICD Code: J18.9 - Pneumonia, unspecified organism Diagnosis: Principal (5) Dilated cardiomyopathy ICD Code: I42.0 - Dilated cardiomyopathy Diagnosis: Principal Status: Chronic Procedures See hospital course Brief History - From Admission 77-year-old gentleman presents with complaints of 4 days of chills productive cough, yellowish sputum. He denies any chest pain fever or chills or shortness of breath. Today when he was trying to put on his socks and bend over he passed out. CBC/BMP: 11/11/17 0407 11/14/17 0518 Significant Findings Laboratory Tests Test 11/14/17 05:18 Blood Urea Nitrogen 20 MG/DL (7-18) Calcium Level 8.1 MG/DL (8.5-10.1) Estimat Glomerular Filtration Rate 74 ML/MIN (>89) Imaging Last Impressions Chest X-Ray 11/14/17 1728 Signed Impressions: Service Date/Time: Tuesday, November 14, 2017 18:08 - CONCLUSION: 1. Minimal basal atelectasis or scarring. Right-sided pleural calcification. No pneumothorax. Alvaro Colin MD Myocardial Perfusion Scan Nuc Med 11/11/17 0910 Signed Impressions: Service Date/Time: Saturday, November 11, 2017 10:52 - CONCLUSION: Global hypokinesis and reduction in ejection fraction and no significant ischemia. RISK CATEGORY: Intermediate (1-3%% Annual Mortality Rate) Nai Rodriguez MD Brain MRI 11/10/17 0828 Signed Impressions: Service Date/Time: Friday, November 10, 2017 09:44 - CONCLUSION: 1. No findings to indicate acute cortical infarction are seen. No mass lesion is identified. 2. The There are some scattered areas of increased T2 signal in the white matter evident on the inversion recovery images most consistent with microvascular ischemic demyelinative change. Mack Kaba MD Neck CTA 11/10/17 0000 Signed Impressions: Service Date/Time: Friday, November 10, 2017 22:42 - CONCLUSION: 1. Mixed arch plaque with resultant moderate stenosis of the brachiocephalic origin and mild to moderate stenosis of the left carotid and subclavian origins. 2. Interval right carotid endarterectomy without significant flow-limiting stenosis. 3. Diffuse noncalcified plaque in the mid left common carotid artery with resultant approximate 50%% stenosis. 4. Calcified plaque in the left carotid bulb extending to the origin of the internal carotid artery with resultant 45-50%% stenosis. Additional tandem 40-45%% stenoses slightly more distally in the proximal left internal carotid artery. 5. Patent bilateral vertebral arteries. Catrachito Ospina MD Carotid Artery Ultrasound 11/10/17 0000 Signed Impressions: Service Date/Time: Friday, November 10, 2017 08:04 - CONCLUSION: 1. There has been a previous stent placed at the bifurcation on the right. This appears widely patent. 2. There is extensive calcified and soft plaque at the bifurcation on the left. The velocity ratio is within normal limits however, the velocities in both the internal and common carotid are significantly elevated. Due to the elevation of the velocities and the extensive amount of plaque present I would recommend further assessment of this with CT angiography. Mack Kaba MD Head CT 11/09/172049 Signed Impressions: Service Date/Time: October 21:08 - CONCLUSION: 1. No acute intracranial abnormality. 2. Chronic paranasal sinus disease. Sarthak Gary Jr., MD PE at Discharge GENERAL: in nad NECK: Supple, trachea midline. No JVD or lymphadenopathy. CARDIOVASCULAR: Regular rate and rhythm without murmurs, gallops, or rubs. AICD device in place with bandage. Sloughing is in the left arm. RESPIRATORY: Breath sounds equal bilaterally. No accessory muscle use. GASTROINTESTINAL: Abdomen soft, non-tender, nondistended. MUSCULOSKELETAL: No cyanosis, or edema. BACK: Nontender without obvious deformity. No CVA tenderness. Pt update on day of discharge Follow-up for ICD placement Patient anxious to go. He stated he is doing well. He stated he feels sore at the device site but he will get used to it. His sling is in place. Deny any chest pain, shortness of breathing, palpitation, lightheadedness/dizziness. Patient stated that someone is ready to pick him up. Hospital Course 77-year-old man with Syncope - Ultrasound carotid- CTA recommended due to high velocities and extensive calcification -stress test 11/11/17 with global hypokinesis and reduction in ejection fraction and no significant ischemia - 2-D echo with EF 20-25% and plan for ICD tomorrow. -Per Neurology if EF<20% consider to start patient on Coumadin instead Plavix -May be secondary to dilate cardiomyopathy which causes patient to have increased risk of arrhythmias that could've caused his syncope. Dilated cardiomyopathy -EF 20-25% -Status post ICD done on 11/[address] Lambert -Continue with Coreg, lisinopril 2.5 mg daily, Lasix 40 mg daily -No evidence of CHF exacerbation -Dr. Lambert clear patient for discharge on 11/15 with Levaquin. Patient was to follow-up with him in one week. Patient also told need to keep sling in place as directed by soft shoe dancer. Coronary artery disease -Nuclear stress test without any evidence of ischemia -Continue current medical management Pneumonia - Discontinue Rocephin and switch to by mouth azithromycin 500 mg daily. Patient completed his course during his hospital patient. -Negative chest x-ray and asymptomatic. - Blood and urine cultures cultures NTD Diarrhea -on Lactinex Hypotension-resolved - s/p IV fluids resuscitation History of chronic systolic CHF -Continue with Imdur, Prinivil, Coreg -2-D echo with 20-25% Hyperlipidemia -Currently on statin Pt Condition on Discharge: Stable Discharge Disposition: Discharge Home Discharge Time: <= 30 minutes Discharge Instructions DIET: Follow Instructions for: Heart Healthy Diet Activities you can perform: See Additionl Instruction Other Activity Instructions: keep sling on as directed by your Communications Electrician Supervisor. Follow up Referrals: Cardiology - 1 Week with Robin Lambert MD PCP Follow-up - 1 Week New Medications: Carvedilol (Coreg) 3.125 Mg Tab 3.125 MG PO Q12HR for heart disease, #60 TAB 0 Refills Furosemide (Furosemide) 40 Mg Tab 40 MG PO DAILY for cardiomyopathy, #30 TAB 0 Refills Isosorbide Mononitrate ER (Isosorbide Mononitrate ER) 30 Mg Ajay 30 MG PO DAILY@07 for heart disease, #30 TAB 0 Refills Lisinopril (Lisinopril) 5 Mg Tab 2.5 MG PO DAILY for cardiomyopathy, #30 TAB 0 Refills Tramadol (Ultram) 50 Mg Tab 50 MG PO Q6HR PRN for moderate to severe pain, #20 TAB Continued Medications: Aspirin (Aspirin) 81 Mg Chew 81 MG CHEW DAILY, TAB 0 Refills Clopidogrel (Clopidogrel) 75 Mg Tab 75 MG PO DAILY for Blood Clot Prevention, #30 TAB 0 Refills Nitroglycerin SL (Nitroglycerin SL) 0.4 Mg Subl 0.4 MG SL DIRECTED PRN for CHEST PAIN, #100 TAB.SL 0 Refills ONE TABLET UNDER THE TONGUE NEEDED FOR CHEST PAIN, MAY REPEAT EVERY FIVE MINUTES FOR A TOTAL OF 3 DOSES OR CALL 911 IF NO RELIEF Rosuvastatin (Rosuvastatin) 20 Mg Tab 20 MG PO DAILY for Cholesterol Management, #30 TAB 0 Refills Discontinued Medications: Carvedilol (Carvedilol) 12.5 Mg Tab 12.5 MG PO DAILY, #60 TAB 0 Refills Chlorpheniramine-Acetaminophen (Coricidin Hbp Cold & Flu) 2-325 Mg Tab 1 TAB PO BID PRN for Chest Congestion/Cough, TAB 0 Refills Leny Whalen MD Nov 15, 2017 09:06
--- NOTE | 2017-11-15 09:06 | HHI.DCPOC ---
Discharge Care Plan Diagnosis: (1) Dilated cardiomyopathy (2) Syncope (3) S/P implantation of automatic cardioverter/defibrillator (AICD) Goals to Promote Your Health * To prevent worsening of your condition and complications * To maintain your health at the optimal level Directions to Meet Your Goals Take your medications as prescribed Follow your dietary instruction Follow activity as directed Keep your appointments as scheduled Take your immunizations and boosters as scheduled If your symptoms worsen call your PCP, if no PCP go to Urgent Care Center or Emergency Room Smoking is Dangerous to Your Health. Avoid second hand smoke Call the 24-hour hour crisis hotline for domestic abuse at Leny Whalen MD Nov 15, 2017 09:06
== END 2017-11-15 11:16 | disposition home or self-care (01) | DRG 226 ==
LOC: PHED 19:36 → PHEDA 21:21 → HIME 11-10 00:55 → HCIS 11-10 19:29
PROVIDERS: ADMIT Family Medicine; ATTEND Family Medicine
PROC: 02HK3KZ Insertion of Defibrillator Lead into Right Ventricle, Percutaneous Approach (ICD-10-PCS; 2017-11-14)
PROC: 0JH608Z Insertion of Defibrillator Generator into Chest Subcutaneous Tissue and Fascia, Open Approach (ICD-10-PCS; principal; 2017-11-14 16:00)
DX: I42.0 Dilated cardiomyopathy (principal); J18.9 Pneumonia, unspecified organism; I11.0 Hypertensive heart disease with heart failure; I25.82 Chronic total occlusion of coronary artery; I50.22 Chronic systolic (congestive) heart failure; R55 Syncope and collapse; I25.10 Atherosclerotic heart disease of native coronary artery without angina pectoris; E78.5 Hyperlipidemia, unspecified; I73.9 Peripheral vascular disease, unspecified; R19.7 Diarrhea, unspecified; Z79.82 Long term (current) use of aspirin; Z86.73 Personal history of transient ischemic attack (TIA), and cerebral infarction without residual deficits; Z87.891 Personal history of nicotine dependence
CPT/HCPCS: 33249; 70450; 70498; 70553; 71045; 78452; 80048; 80053; 81001; 82550; 82552; 82607; 83605; 83735; 83880; 84100; 84425; 84484; 85025; 85610; 85652; 85730; 87040; 87641; 87804; 93005; 93017; 93225; 93226; 93306; 93641; 93880; 94640; 94664; 95819; 96374; A9502; A9579; C1722; C1777; J0456; J0690; J0696; J1265; J1644; J1940; J2250; J2543; J2785; J2930; J3010; J3370; J7030; J7040; J7050; J7613; Q9967

== ENCOUNTER 2017-12-03 18:27 | Observation (INO) | payer OTHER, MEDICAID ==
[~2017-12-03] VITALS: Ht 177.8 cm; Wt 79.5 kg
[~2017-12-03 18:27] MED LIST changes: +CARV3.125 PO; -CARV6.25 PO; -FURO20TA PO; +FURO40TA PO; -LIPI80TA PO; +NITR1SUB3 SL; +ROSU1TAB8 PO; +TRAM50 PO
[2017-12-03 18:36] VITALS: BP 147/65; PULSE 73; RESP 14; O2SAT 96
[2017-12-03] MEDS ORDERED: HYDR-4107 PO (18:43)
[2017-12-03] MEDS ORDERED: SODIUM CHLORID 0.9% 500 ML INJ 500 ML IV ONE (18:45)
--- NOTE | 2017-12-03 18:53 | PD ---
HPI Chief Complaint: Syncope/Near-Syncope Time Seen by Provider: 18:36 Travel History International Travel<30 days: No Contact w/Intl Traveler<30days: No Traveled to known affect area: No History of Present Illness HPI 77-year-old male with a history of a left-sided CVA, congestive heart failure, ID, on Plavix presents to the emergency department complaining of lightheadedness that started while he was watching TV this morning. States that he is more lightheaded when he stands but denies falls or head trauma. States he also has had blurred vision. Says his blood pressure was 82/51 at home. Patient denies fevers, chills, chest pain, shortness of breath, abdominal pain, nausea, vomiting. Says he has had diarrhea since discharge from the hospital November 17 this year. States he has 2 episodes of diarrhea daily, denies malodorous feces. States he had a pacemaker placed November 14 and was in the hospital for approximately 1 week. Daughter assists with the history of this patient. PFSH Past Medical History Hx Anticoagulant Therapy: Yes (asa 81mg, plavix 75mg) Anxiety: No Depression: No Cancer: No Cardiac Catheterization: Yes Cardiovascular Problems: Yes (htn on meds) High Cholesterol: Yes Congestive Heart Failure: Yes Cerebrovascular Accident: Yes (tia) Coronary Artery Disease: Yes Diminished Hearing: No Endocrine: No Genitourinary: No Hypertension: Yes Immune Disorder: No Implanted Vascular Access Dvce: No Musculoskeletal: No Neurologic: Yes Psychiatric: No Reproductive: No Respiratory: No Myocardial Infarction: Yes Past Surgical History Other Surgery: Yes (right endarterectomy 10/2015, SINUS POLYPS REMOVED) Social History Alcohol Use: Yes (OCCASIONAL) Tobacco Use: No (QUIT) Substance Use: No Allergies-Medications (Allergen,Severity, Reaction): Coded Allergies: No Known Allergies (Unverified Allergy, Unknown, 11/09/17) Reported Meds & Prescriptions Reported Meds & Active Scripts Active Furosemide 40 Mg Tab 40 Mg PO DAILY Lisinopril 5 Mg Tab 2.5 Mg PO DAILY Coreg (Carvedilol) 3.125 Mg Tab 3.125 Mg PO Q12HR Isosorbide Mononitrate ER (Isosorbide Mononitrate) 30 Mg Ajay 30 Mg PO DAILY@07 Clopidogrel (Clopidogrel Bisulfate) 75 Mg Tab 75 Mg PO DAILY Reported Hydrocodone-Acetaminophen 5-300 Mg Tab 1 Tab PO Q6H PRN Nitroglycerin SL (Nitroglycerin) 0.4 Mg Subl 0.4 Mg SL DIRECTED PRN ONE TABLET UNDER THE TONGUE NEEDED FOR CHEST PAIN, MAY REPEAT EVERY FIVE MINUTES FOR A TOTAL OF 3 DOSES OR CALL 911 IF NO RELIEF Rosuvastatin (Rosuvastatin Calcium) 20 Mg Tab 20 Mg PO DAILY Aspirin 81 Mg Chew 81 Mg CHEW DAILY Review of Systems Except as stated in HPI: all other systems reviewed are Neg Physical Exam Narrative GENERAL: Well-developed well-nourished in no apparent distress, resting comfortably in bed SKIN: Focused skin assessment warm/dry. HEAD: Atraumatic. Normocephalic. EYES: Pupils equal and round. No scleral icterus. No injection or drainage. EOMI ENT: No nasal bleeding or discharge. Mucous membranes pink and moist. NECK: Trachea midline. No JVD. CARDIOVASCULAR: Regular rate and rhythm. No murmur appreciated. RESPIRATORY: No accessory muscle use. Clear to auscultation. Breath sounds equal bilaterally. GASTROINTESTINAL: Abdomen soft, non-tender, nondistended. Hepatic and splenic margins not palpable. MUSCULOSKELETAL: No obvious deformities. No clubbing. No cyanosis. No edema. NEUROLOGICAL: Awake and alert. No obvious cranial nerve deficits. Motor grossly within normal limits. Normal speech. PSYCHIATRIC: Appropriate mood and affect; insight and judgment normal. Data Data Last Documented VS Vital Signs Date Time Temp Pulse Resp B/P (MAP) Pulse Ox O2 Delivery O2 Flow Rate FiO2 12/03/17 21:42 65 18 141/65 (90) 73 18 135/79 (97) 74 18 138/63 (88) 12/03/17 21:33 100 Room Air Orders Orders Electrocardiogram (12/03/17 18:36) Complete Blood Count With Diff (12/03/17 18:36) Comprehensive Metabolic Panel (12/03/17 18:36) Magnesium (Mg) (12/03/17 18:36) Ckmb (Isoenzyme) Profile (12/03/17 18:36) Troponin I (12/03/17 18:36) Act Partial Throm Time (Ptt) (12/03/17 18:36) Prothrombin Time / Inr (Pt) (12/03/17 18:36) Urinalysis - C+S If Indicated (12/03/17 18:36) Chest, Single Ap (12/03/17 18:36) Ct Brain W/O Iv Contrast(Rout) (12/03/17 18:36) Blood Glucose (12/03/17 18:36) Ecg Monitoring (12/03/17 18:36) Iv Access Insert/Monitor (12/03/17 18:36) Oximetry (12/03/17 18:36) Orthostatic Vital Signs (12/03/17 18:36) Sodium Chlorid 0.9% 500 Ml Inj (Ns 500 M (12/03/17 18:45) Stool Wbc (Leukocytes) (12/03/17 18:36) C Diff Toxin Pcr (12/03/17 18:36) Urine Culture (12/03/17 19:53) Admit Order (Ed Use Only) (12/03/17 22:46) Labs Laboratory Tests Test 12/03/17 19:36 12/03/17 19:53 White Blood Count 6.7 TH/MM3 Red Blood Count 4.00 MIL/MM3 Hemoglobin 12.9 GM/DL Hematocrit 36.9 % Mean Corpuscular Volume 92.3 FL Mean Corpuscular Hemoglobin 32.3 PG Mean Corpuscular Hemoglobin Concent 35.0 % Red Cell Distribution Width 13.8 % Platelet Count 238 TH/MM3 Mean Platelet Volume 6.6 FL Neutrophils (%) (Auto) 54.1 % Lymphocytes (%) (Auto) 26.4 % Monocytes (%) (Auto) 15.1 % Eosinophils (%) (Auto) 3.7 % Basophils (%) (Auto) 0.7 % Neutrophils # (Auto) 3.6 TH/MM3 Lymphocytes # (Auto) 1.8 TH/MM3 Monocytes # (Auto) 1.0 TH/MM3 Eosinophils # (Auto) 0.2 TH/MM3 Basophils # (Auto) 0.0 TH/MM3 CBC Comment DIFF FINAL Differential Comment Prothrombin Time 10.8 SEC Prothromb Time International Ratio 1.1 RATIO Activated Partial Thromboplast Time 24.3 SEC Blood Urea Nitrogen 31 MG/DL Creatinine 1.48 MG/DL Random Glucose 103 MG/DL Total Protein 7.3 GM/DL Albumin 3.2 GM/DL Calcium Level 8.9 MG/DL Magnesium Level 2.5 MG/DL Alkaline Phosphatase 109 U/L Aspartate Amino Transf (AST/SGOT) 21 U/L Alanine Aminotransferase (ALT/SGPT) 26 U/L Total Bilirubin 0.6 MG/DL Sodium Level 137 MEQ/L Potassium Level 4.5 MEQ/L Chloride Level 102 MEQ/L Carbon Dioxide Level 27.0 MEQ/L Anion Gap 8 MEQ/L Estimat Glomerular Filtration Rate 46 ML/MIN Total Creatine Kinase 54 U/L Troponin I 0.20 NG/ML Urine Color YELLOW Urine Turbidity HAZY Urine pH 5.5 Urine Specific Bruno 1.015 Urine Protein TRACE mg/dL Urine Glucose (UA) NEG mg/dL Urine Ketones NEG mg/dL Urine Occult Blood TRACE Urine Nitrite NEG Urine Bilirubin NEG Urine Urobilinogen LESS THAN 2.0 MG/DL Urine Leukocyte Esterase TRACE Urine RBC 3 /hpf Urine WBC 17 /hpf Urine Squamous Epithelial Cells 2 /hpf Urine Amorphous Sediment RARE Urine Bacteria FEW /hpf Urine Hyaline Casts 52 /lpf Urine White Blood Cell Casts 4 /lpf Urine Mucus FEW /lpf Urine Sperm RARE Microscopic Urinalysis Comment CULTURE INDICATED MDM Medical Decision Making Medical Screen Exam Complete: Yes Emergency Medical Condition: Yes Differential Diagnosis dehydration, near syncope, STEMI, NSTEMI Narrative Course 77-year-old male with a history of a left-sided CVA, congestive heart failure, ID, on Plavix presents to the emergency department complaining of lightheadedness that started while he was watching TV this morning. States that he is more lightheaded when he stands but denies falls or head trauma. States he also has had blurred vision. Says his blood pressure was 82/51 at home. Patient denies fevers, chills, chest pain, shortness of breath, abdominal pain, nausea, vomiting. Says he has had diarrhea since discharge from the hospital November 17 this year. States he has 2 episodes of diarrhea daily, denies malodorous feces. States he had a pacemaker/AICD placed November 14 and was in the hospital for approximately 1 week. Daughter assists with the history of this patient. Vital signs stable Last Impressions Head CT 12/03/171835 Signed Impressions: Service Date/Time: Sunday, December 03, 2017 19:17 - CONCLUSION: No acute findings in the brain. Sarthak Givens MD Chest X-Ray 12/03/171835 Signed Impressions: Service Date/Time: Sunday, December 03, 2017 18:54 - CONCLUSION: No acute disease. No significant change has occurred. Sincere Lau MD Laboratory Tests Test 12/03/17 19:36 12/03/17 19:53 White Blood Count 6.7 TH/MM3 Red Blood Count 4.00 MIL/MM3 Hemoglobin 12.9 GM/DL Hematocrit 36.9 % Mean Corpuscular Volume 92.3 FL Mean Corpuscular Hemoglobin 32.3 PG Mean Corpuscular Hemoglobin Concent 35.0 % Red Cell Distribution Width 13.8 % Platelet Count 238 TH/MM3 Mean Platelet Volume 6.6 FL Neutrophils (%) (Auto) 54.1 % Lymphocytes (%) (Auto) 26.4 % Monocytes (%) (Auto) 15.1 % Eosinophils (%) (Auto) 3.7 % Basophils (%) (Auto) 0.7 % Neutrophils # (Auto) 3.6 TH/MM3 Lymphocytes # (Auto) 1.8 TH/MM3 Monocytes # (Auto) 1.0 TH/MM3 Eosinophils # (Auto) 0.2 TH/MM3 Basophils # (Auto) 0.0 TH/MM3 CBC Comment DIFF FINAL Differential Comment Prothrombin Time 10.8 SEC Prothromb Time International Ratio 1.1 RATIO Activated Partial Thromboplast Time 24.3 SEC Blood Urea Nitrogen 31 MG/DL Creatinine 1.48 MG/DL Random Glucose 103 MG/DL Total Protein 7.3 GM/DL Albumin 3.2 GM/DL Calcium Level 8.9 MG/DL Magnesium Level 2.5 MG/DL Alkaline Phosphatase 109 U/L Aspartate Amino Transf (AST/SGOT) 21 U/L Alanine Aminotransferase (ALT/SGPT) 26 U/L Total Bilirubin 0.6 MG/DL Sodium Level 137 MEQ/L Potassium Level 4.5 MEQ/L Chloride Level 102 MEQ/L Carbon Dioxide Level 27.0 MEQ/L Anion Gap 8 MEQ/L Estimat Glomerular Filtration Rate 46 ML/MIN Total Creatine Kinase 54 U/L Troponin I 0.20 NG/ML Urine Color YELLOW Urine Turbidity HAZY Urine pH 5.5 Urine Specific Bruno 1.015 Urine Protein TRACE mg/dL Urine Glucose (UA) NEG mg/dL Urine Ketones NEG mg/dL Urine Occult Blood TRACE Urine Nitrite NEG Urine Bilirubin NEG Urine Urobilinogen LESS THAN 2.0 MG/DL Urine Leukocyte Esterase TRACE Urine RBC 3 /hpf Urine WBC 17 /hpf Urine Squamous Epithelial Cells 2 /hpf Urine Amorphous Sediment RARE Urine Bacteria FEW /hpf Urine Hyaline Casts 52 /lpf Urine White Blood Cell Casts 4 /lpf Urine Mucus FEW /lpf Urine Sperm RARE Microscopic Urinalysis Comment CULTURE INDICATED Pt gently rehydrated with NS saline 500cc as he has CHF. Stool studies pending- pt has no diarrhea in the ED today. Concerning because of hospital stay in October, possibly contributing to patient dehydration & lightheadedness. While performing orthostatics, patient was symptomatic and described as lightheadedness, similar to previous episodes today. Orthostatics negative, however. EKG show sinus rhythm without STEMI changes, RBBB Troponin elevated at 0.20. It appears that patient has persistently elevated troponin. Last echo October 2017 EF 20-25%, ICD placement November 14, 2017, Cardiac Cath which showed severe multiple vessel CAD, LV systolic dysfunction, given a Lifevest by Cardio at that time. Chronic anemia present. BUN/Cr 31/1.48, up from Nov 14, 2016 20/0.99 UA unconvincing of a UTI, possible dehydration pattern as he has no urinary symptoms, he is afebrile, and no leukocytosis present. Patient will be admitted for elevated troponin (NSTEMI?), LUISITO, dehydration, near syncope Thank you Dr. Cast for taking this patient. Diagnosis Primary Impression: Dehydration Additional Impressions: LUISITO (acute kidney injury) Diarrhea Qualified Codes: R19.7 - Diarrhea, unspecified Elevated troponin I level Syncope, near Admitting Information Admitting Physician Requests: Admit Condition: Stable Elsa Mello Dec 03, 2017 18:53
--- NOTE | 2017-12-03 19:03 | RADRPT ---
EXAM DATE/TIME: 12/03/2017 18:54 [facility] COMPARISON: CHEST SINGLE AP, November 14, 2017, 18:08. INDICATIONS : Syncopal episode with dizziness MEDICAL HISTORY : Peripheral vascular disease. Hypertension SURGICAL HISTORY : Pacemaker. Carotid endarterectomy. ENCOUNTER: Initial ACUITY: 1 day PAIN SCORE: 0/10 LOCATION: chest FINDINGS: A single view of the chest demonstrates the lungs to be symmetrically aerated without evidence of mas s, infiltrate or effusion. The cardiomediastinal contours are unremarkable with age appropriate mild atherosclerotic changes on widening of the descending aorta.. Osseous structures are intact. Unipol ar pacemaker again overlies the left hemithorax. CONCLUSION: No acute disease. No significant change has occurred. Sincere Lau MD on December 03, 2017 at 19:00 Board Certified Radiologist. This report was verified electronically.
--- NOTE | 2017-12-03 19:37 | RADRPT ---
EXAM DATE/TIME: 12/03/2017 19:17 [facility] COMPARISON: CT BRAIN W/O CONTRAST, November 09, 2017, 21:08. INDICATIONS : Dizziness today. RADIATION DOSE: 35.72 CTDIvol (mGy) MEDICAL HISTORY : Stroke. Cardiovascular disease Hypertension. SURGICAL HISTORY : Carotid endarterectomy. ENCOUNTER: Initial ACUITY: 1 day PAIN SCALE: 0/10 LOCATION: Bilateral head TECHNIQUE: Multiple contiguous axial images were obtained of the head. Using automated exposure control and adj ustment of the mA and/or kV according to patient size, radiation dose was kept as low as reasonably a chievable to obtain optimal diagnostic quality images. DICOM format image data is available electro nically for review and comparison. FINDINGS: CEREBRUM: The ventricles are normal for age. No evidence of midline shift, mass lesion, hemorrhage or acute in farction. Focal small area of hypodensity in the subcortical leon matter right posterior mid convexi ty parietal region, unchanged from prior. No extra-axial fluid collections are seen. POSTERIOR FOSSA: The cerebellum and brainstem are intact. The 4th ventricle is midline. The cerebellopontine angle i s unremarkable. EXTRACRANIAL: The visualized portion of the orbits is intact. Some mucosal thickening in the ethmoids, less severe than on prior exam. SKULL: The calvaria is intact. No evidence of skull fracture. CONCLUSION: No acute findings in the brain. Sarthak Givens MD on December 03, 2017 at 19:34 Board Certified Radiologist. This report was verified electronically.
[2017-12-03 20:36] LABS: AUTOMATED NEUTROPHIL # 3.6 TH/MM3 (1.8-7.7); BASOPHIL % 0.7 % (0.0-2.0); EOSINOPHIL # 0.2 TH/MM3 (0-0.4); EOSINOPHIL % 3.7 % (0.0-4.0); HEMATOCRIT 36.9 % (39.0-51.0); HEMOGLOBIN 12.9 GM/DL (13.0-17.0); LYMPH % 26.4 % (9.0-44.0); LYMPHOCYTE # 1.8 TH/MM3 (1.0-4.8); MEAN CELL VOLUME 92.3 FL (80.0-100.0); MEAN CORPUSCULAR HEMOGLOBIN 32.3 PG (27.0-34.0); MEAN PLATELET VOLUME 6.6 FL (7.0-11.0); MONO % 15.1 % (0.0-8.0); NEUT % 54.1 % (16.0-70.0); PLATELET COUNT 238 TH/MM3 (150-450); RED CELL DISTRIBUTION WIDTH 13.8 % (11.6-17.2); WHITE BLOOD COUNT 6.7 TH/MM3 (4.0-11.0)
[2017-12-03 20:39] LABS: AMORPHOUS SEDIMENT, URINE RARE; BACTERIA, URINE FEW /hpf; BILIRUBIN, URINE NEG (NEG); BLOOD, URINE TRACE (NEG); GLUCOSE,URINE NEG (NEG); HYALINE CAST, URINE 52 /lpf (RARE); KETONE, URINE NEG (NEG); MUCUS URINE FEW /lpf (OCC); NITRITE,URINE NEG (NEG); PH, URINE 5.5 (5.0-8.5); SPERM, URINE RARE; SQUAMOUS EPITHELIAL CELL URINE 2 /hpf (0-5); URINE COLOR YELLOW (YELLW/STRAW); URINE LEUKOCYTE ESTERASE TRACE (NEG); WHITE BLOOD CELL CAST, URINE 4 /lpf
[2017-12-03 20:47] LABS: INTERNATIONAL NORMALIZED RATIO 1.1 RATIO; PROTHROMBIN TIME - PATIENT 10.8 SEC (9.8-11.6)
[2017-12-03 21:16] LABS: ALBUMIN 3.2 GM/DL (3.4-5.0); AST (GOT) 21 U/L (15-37); BLOOD UREA NITROGEN 31 MG/DL (7-18); CALCIUM 8.9 MG/DL (8.5-10.1); CHLORIDE 102 MEQ/L (98-107); CREATININE 1.48 MG/DL (0.60-1.30); GLOMERULAR FILTRATION RATE 46 ML/MIN (>89); GLUCOSE,RANDOM 103 MG/DL (74-106); MAGNESIUM 2.5 MG/DL (1.5-2.5); SODIUM (NA) 137 MEQ/L (136-145)
[2017-12-03 21:17] LABS: ALT (GPT) 26 U/L (12-78)
[2017-12-03 21:21] LABS: ALKALINE PHOSPHATASE 109 U/L (45-117); TOTAL BILIRUBIN ADULT 0.6 MG/DL (0.2-1.0); TOTAL PROTEIN 7.3 GM/DL (6.4-8.2)
[2017-12-03 21:33] VITALS: BP 105/56; PULSE 67; RESP 18; O2SAT 100
[2017-12-03 21:42] VITALS: BP_SYST 135; BP_SYST 138; BP_SYST 141; BP_DIAS 63; BP_DIAS 65; BP_DIAS 79; RESP 18
[2017-12-03 22:50] VITALS: BP 130/58; PULSE 70; RESP 18; O2SAT 95
--- NOTE | 2017-12-03 22:52 | HHI.HP ---
HPI Service [facility] Primary Care Physician Unknown Admission Diagnosis near syncope, LUISITO, dehydration, elevated troponin Diagnoses: (1) Near syncope Diagnosis: Principal (2) Elevated troponin Diagnosis: Principal (3) Dilated cardiomyopathy Diagnosis: Principal (4) LUISITO (acute kidney injury) Diagnosis: Principal (5) UTI (urinary tract infection) Diagnosis: Principal (6) Diarrhea Diagnosis: Principal Travel History International Travel<30 Days: No Contact w/Intl Traveler <30 Da: No Traveled to Known Affected Are: No History of Present Illness This is a 77-year-old male with a PMH of HTN, Hyperlipidemia, CHF (Echo 11/11/17 w/ EF 20-25%), s/p AICD and h/o TIA/CVA who presented to the ER w/ complaints of dizziness and near syncopal event. Recent admit 11/09-11/15/14 for syncope, found to have PNA s/p Antibiotics and Dilated CM w/ EF 20-25%, s/p AICD 11/14/17 by Petra, +extensive carotid calcifications, s/p eval by Neurology w/ recommendation for Coumadin if EF <20%. +elevated trop, s/p Stress Test negative for ischemia. Pt also noted to have diarrhea, started on Lactinex. States he's had ongoing dizziness and intermittent diarrhea since discharge. Yesterday w/ near syncope, states he fell against the wall and head went straight through. Denies LOC. Today w/ similar event however no head trauma. Denies fever, chills, chest pain, nausea or vomiting. On arrival, BP 147/65, HR 73, O2 sat 96% on RA. Orthostatic Vitals negative. CBC essentially unremarkable. Creatinine 1.48, produces 0.99 11/14/17. Troponin 0.20, previously 0.50 on 11/10/17. INR 1.1. UA positive for UTI. CXR with no acute findings. CT Head negative. Review of Systems Except as stated in HPI: all other systems reviewed are Neg ROS: 14 point review of systems otherwise negative. Past Family Social History Past Medical History PMH: HTN, Hyperlipidemia, CHF (Echo 11/11/17 w/ EF 20-25%), s/p AICD and h/o TIA /CVA Past Surgical History PAST SURGICAL HISTORY: Right Endarterectomy, Polypectomy Allergies: Coded Allergies: No Known Allergies (Unverified Allergy, Unknown, 11/09/17) Family History PAST FAMILY HISTORY: Reviewed. No h/o DM or CAD Social History PAST SOCIAL HISTORY: Occasional alcohol. Negative for tobacco or drugs. Physical Exam Vital Signs Vital Signs Date Time Temp Pulse Resp B/P (MAP) Pulse Ox O2 Delivery O2 Flow Rate FiO2 12/03/17 21:42 65 18 141/65 (90) 73 18 135/79 (97) 74 18 138/63 (88) 12/03/17 21:33 100 Room Air 12/03/17 21:33 67 18 105/56 (72) 100 12/03/17 18:36 73 14 147/65 (92) 96 Physical Exam PE: GENERAL: Very pleasant elderly white male in no acute distress. HEENT: PERRLA, EOMI. No scleral icterus or conjunctival pallor. No lid lag or facial droop. CARDIOVASCULAR: Regular rate and rhythm. No obvious murmurs to auscultation. No chest tenderness to palpation. AICD in place, Steri-Strips intact, no signs of infection. RESPIRATORY: No obvious rhonchi or wheezing. Clear to auscultation. Breath sounds equal bilaterally. GASTROINTESTINAL: Abdomen soft, non-tender, nondistended. BS normal. MUSCULOSKELETAL: Extremities without clubbing, cyanosis, or edema. No obvious deformities. NEUROLOGICAL: Awake, alert and oriented x4. No focal neurologic deficits. Moving both upper and lower extremities spontaneously. Laboratory Laboratory Tests Test 12/03/17 19:36 12/03/17 19:53 White Blood Count 6.7 Red Blood Count 4.00 Hemoglobin 12.9 Hematocrit 36.9 Mean Corpuscular Volume 92.3 Mean Corpuscular Hemoglobin 32.3 Mean Corpuscular Hemoglobin Concent 35.0 Red Cell Distribution Width 13.8 Platelet Count 238 Mean Platelet Volume 6.6 Neutrophils (%) (Auto) 54.1 Lymphocytes (%) (Auto) 26.4 Monocytes (%) (Auto) 15.1 Eosinophils (%) (Auto) 3.7 Basophils (%) (Auto) 0.7 Neutrophils # (Auto) 3.6 Lymphocytes # (Auto) 1.8 Monocytes # (Auto) 1.0 Eosinophils # (Auto) 0.2 Basophils # (Auto) 0.0 CBC Comment DIFF FINAL Differential Comment Prothrombin Time 10.8 Prothromb Time International Ratio 1.1 Activated Partial Thromboplast Time 24.3 Blood Urea Nitrogen 31 Creatinine 1.48 Random Glucose 103 Total Protein 7.3 Albumin 3.2 Calcium Level 8.9 Magnesium Level 2.5 Alkaline Phosphatase 109 Aspartate Amino Transf (AST/SGOT) 21 Alanine Aminotransferase (ALT/SGPT) 26 Total Bilirubin 0.6 Sodium Level 137 Potassium Level 4.5 Chloride Level 102 Carbon Dioxide Level 27.0 Anion Gap 8 Estimat Glomerular Filtration Rate 46 Total Creatine Kinase 54 Troponin I 0.20 Urine Color YELLOW Urine Turbidity HAZY Urine pH 5.5 Urine Specific [place] 1.015 Urine Protein TRACE Urine Glucose (UA) NEG Urine Ketones NEG Urine Occult Blood TRACE Urine Nitrite NEG Urine Bilirubin NEG Urine Urobilinogen LESS THAN 2.0 Urine Leukocyte Esterase TRACE Urine RBC 3 Urine WBC 17 Urine Squamous Epithelial Cells 2 Urine Amorphous Sediment RARE Urine Bacteria FEW Urine Hyaline Casts 52 Urine White Blood Cell Casts 4 Urine Mucus FEW Urine Sperm RARE Microscopic Urinalysis Comment CULTURE INDICATED Date/Time Source Procedure Growth Status 12/03/17 19:53 Urine Random Urine Urine Culture Pending Received Result Diagram: 12/03/17193512/03/171935 Caprini VTE Risk Assessment Caprini VTE Risk Assessment: No/Low Risk (score <= 1) Caprini Risk Assessment Model Point Value = 1 Point Value = 2 Point Value = 3 Point Value = 5 Age 41-60 Minor surgery BMI > 25 kg/m2 Swollen legs Varicose veins or History of unexplained or recurrent spontaneous Oral contraceptives or hormone replacement Sepsis (< 1 month) Serious lung disease, including pneumonia (< 1 month) Abnormal pulmonary function Acute myocardial infarction Congestive heart failure (< 1 month) History of inflammatory bowel disease Medical patient at bed rest Age 61-74 Arthroscopic surgery Major open surgery (> 45 min) Laparoscopic surgery (> 45 min) Malignancy Confined to bed (> 72 hours) Immobilizing plaster cast Central venous access Age >= 75 History of VTE Family history of VTE Factor V Leiden Prothrombin [id number] Lupus anticoagulant Anticardiolipin antibodies Elevated serum homocysteine Heparin-induced thrombocytopenia Other congenital or acquired thrombophilia Stroke (< 1 month) Elective arthroplasty Hip, pelvis, or leg fracture Acute spinal cord injury (< 1 month) Prophylaxis Regimen Total Risk Factor Score Risk Level Prophylaxis Regimen 0-1 Low Early ambulation 2 Moderate Order ONE of the following: *Sequential Compression Device (SCD) *Heparin 5000 units SQ BID 3-4 Higher Order ONE of the following medications: *Heparin 5000 units SQ TID *Enoxaparin/Lovenox 40 mg SQ daily (WT < 150 kg, CrCl > 30 mL/min) *Enoxaparin/Lovenox 30 mg SQ daily (WT < 150 kg, CrCl > 10-29 mL/min) *Enoxaparin/Lovenox 30 mg SQ BID (WT < 150 kg, CrCl > 30 mL/min) AND/OR *Sequential Compression Device (SCD) 5 or more Highest Order ONE of the following medications: *Heparin 5000 units SQ TID (Preferred with Epidurals) *Enoxaparin/Lovenox 40 mg SQ daily (WT < 150 kg, CrCl > 30 mL/min) *Enoxaparin/Lovenox 30 mg SQ daily (WT < 150 kg, CrCl > 10-29 mL/min) *Enoxaparin/Lovenox 30 mg SQ BID (WT < 150 kg, CrCl > 30 mL/min) AND *Sequential Compression Device (SCD) Assessment and Plan Problem List: (1) Near syncope ICD Code: R55 - Syncope and collapse (2) Elevated troponin ICD Code: R74.8 - Abnormal levels of other serum enzymes (3) Dilated cardiomyopathy ICD Code: I42.0 - Dilated cardiomyopathy Status: Chronic (4) LUISITO (acute kidney injury) ICD Code: N17.9 - Acute kidney failure, unspecified (5) UTI (urinary tract infection) ICD Code: N39.0 - Urinary tract infection, site not specified (6) Diarrhea ICD Code: R19.7 - Diarrhea, unspecified Assessment and Plan A/P: 1. Near Syncope: w/ associated dizziness, recent head trauma. CT Head w/ no acute findings, images reviewed by me. Orthostatic Vitals negative, however evidence of dehydration/LUISITO. IVF for hydration-caution w/ CHF/CM. Admit for Observation, place on telemetry to eval for arrhythmia. 2. Elevated Trop: Trop 0.20, trending down from previous visit. No c/o chest pain, EKG w/ no acute ischemia. Stress 11/11/17 negative for acute ischemia. Telemetry, check serial cardiac enzymes for trend. NTG/Morphine if needed. Resume home medications. 3. Dilated CM: S/p AICD 11/14/[address] Lambert, surgical site intact, no signs of infection. Has upcoming follow-up appt, will consult as needed for further recommendations. 4. UTI: U/a w/ UTI. Start IV Rocephin, gentle IVF in light of CHF and poor EF 5. LUISITO: Creatinine 1.48, previously 0.99 to 11/14/17. Secondary to dehydration from UTI/diarrhea. IVF as above. 6. Diarrhea: Ongoing since last admission, ordered on Lactinex with minimal improvement. No diarrhea since arrival however. Will check C. difficile as pt recently on Abx for PNA during last admit. 7. DVT Prophylaxis: SCD/teds. 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 9. Case discussed at length with ER physician, lab/records/imaging reviewed by me. Problem Qualifiers (1) Diarrhea: Qualified Codes: R19.7 - Diarrhea, unspecified Alondra Cast MD Dec 03, 2017 22:52
[2017-12-03] MEDS ORDERED: ONDANSETRON HCL 4 MG/2 ML VIAL IVP PRN (23:00)
[2017-12-03] MEDS ORDERED: ACETAMINOPHEN/HYDROcodone 325 MG/5 MG TAB PO PRN (23:00)
[2017-12-03] MEDS ORDERED: MAGNESIUM HYDROXIDE SUSP 30 ML CUP PO PRN (23:00)
[2017-12-03] MEDS ORDERED: ACETAMINOPHEN 325 MG TAB PO PRN (23:00)
[2017-12-03] MEDS ORDERED: SODIUM CHLORIDE 0.9% FLUSH 10 ML FLUSH IV FLUSH PRN (23:00)
[2017-12-03] MEDS ORDERED: LACTULOSE SYRUP 20 GM/30 ML CUP PO PRN (23:00)
[2017-12-03] MEDS ORDERED: SENNOSIDES 8.6 MG TAB PO PRN (23:00)
[2017-12-03] MEDS ORDERED: MORPHINE SULFATE 2 MG/ML INJ IV PUSH PRN (23:00)
[2017-12-03] MEDS ORDERED: BISACODYL 10 MG SUPP RECTAL PRN (23:00)
[2017-12-03] MEDS: SODIUM CHLOR 0.9% 1000 ML INJ 1,000 ML IV SCH (23:27)
[2017-12-03] MEDS: ISOSORBIDE MONONITRATE 30 MG CR TAB (IMDUR) PO SCH (23:27)
[2017-12-03] MEDS: cefTRIAXone INJ 1,000 MG in SODIUM CHLORIDE 0.9% INJ 100 ML IV SCH (23:58)
[2017-12-04] VITALS (8 sets, daily range): BP systolic 107–130; BP diastolic 53–62; PULSE 62–75; RESP 16–28; TEMP 97.6–98.6; O2SAT 93–98
[2017-12-04 02:18] LABS: AUTOMATED NEUTROPHIL # 2.8 TH/MM3 (1.8-7.7); BASOPHIL % 0.8 % (0.0-2.0); EOSINOPHIL # 0.3 TH/MM3 (0-0.4); EOSINOPHIL % 4.7 % (0.0-4.0); HEMATOCRIT 34.2 % (39.0-51.0); HEMOGLOBIN 11.9 GM/DL (13.0-17.0); LYMPH % 28.4 % (9.0-44.0); LYMPHOCYTE # 1.6 TH/MM3 (1.0-4.8); MEAN CELL VOLUME 92.3 FL (80.0-100.0); MEAN CORPUSCULAR HEMOGLOBIN 32.2 PG (27.0-34.0); MEAN CORPUSCULAR HGB CONC 34.9 % (32.0-36.0); MEAN PLATELET VOLUME 6.5 FL (7.0-11.0); MONO % 15.5 % (0.0-8.0); MONOCYTE # 0.9 TH/MM3 (0-0.9); NEUT % 50.6 % (16.0-70.0); PLATELET COUNT 207 TH/MM3 (150-450); RED BLOOD COUNT 3.71 MIL/MM3 (4.50-5.90); RED CELL DISTRIBUTION WIDTH 13.9 % (11.6-17.2); WHITE BLOOD COUNT 5.6 TH/MM3 (4.0-11.0)
[2017-12-04 02:42] LABS: ALBUMIN 2.8 GM/DL (3.4-5.0); ALKALINE PHOSPHATASE 100 U/L (45-117); ALT (GPT) 26 U/L (12-78); AST (GOT) 19 U/L (15-37); BICARBONATE 26.7 MEQ/L (21.0-32.0); BLOOD UREA NITROGEN 30 MG/DL (7-18); CHLORIDE 107 MEQ/L (98-107); CREATININE 1.13 MG/DL (0.60-1.30); GLOMERULAR FILTRATION RATE 63 ML/MIN (>89); GLUCOSE,RANDOM 109 MG/DL (74-106); SODIUM (NA) 141 MEQ/L (136-145); TOTAL BILIRUBIN ADULT 0.5 MG/DL (0.2-1.0); TOTAL PROTEIN 6.7 GM/DL (6.4-8.2); TROPONIN I 0.17 NG/ML (0.02-0.05)
[2017-12-04] MEDS: CARVEDILOL 3.125 MG TAB PO SCH ×2 (08:29→21:22)
[2017-12-04] MEDS: ASPIRIN 81 MG CHEW TAB CHEW SCH (08:29)
[2017-12-04] MEDS: ATORVASTATIN 40 MG TAB PO SCH (08:29)
[2017-12-04] MEDS: CLOPIDOGREL 75 MG TAB PO SCH (08:29)
[2017-12-04] MEDS: SODIUM CHLORIDE 0.9% FLUSH 10 ML FLUSH IV FLUSH SCH ×2 (08:29→21:00)
[2017-12-04] MEDS: DOCUSATE SODIUM 50 MG/SENNA 8.6 MG TAB PO SCH ×2 (08:29→21:22)
--- NOTE | 2017-12-04 09:21 | HHI.PR ---
Subjective Remarks Follow-up near syncope. The patient states that he still feels lightheaded, but not as much as yesterday. Denies chest pain or dyspnea. Denies palpitations. Continues to have diarrhea, 1-2 loose stools per day. This has been ongoing since his prior hospitalization. Objective Vitals Vital Signs Date Time Temp Pulse Resp B/P (MAP) Pulse Ox O2 Delivery O2 Flow Rate FiO2 12/04/17 03:00 98.0 67 24 107/53 (71) 95 12/04/17 01:00 98.0 75 28 130/62 (84) 93 12/03/17 22:50 70 18 130/58 (82) 95 12/03/17 21:42 65 18 141/65 (90) 73 18 135/79 (97) 74 18 138/63 (88) 12/03/17 21:33 100 Room Air 12/03/17 21:33 67 18 105/56 (72) 100 12/03/17 18:36 73 14 147/65 (92) 96 I/O 12/03/17 12/03/17 12/03/17 12/04/17 12/04/17 12/04/17 07:00 15:00 23:00 07:00 15:00 23:00 Intake Total 1080 ml Balance 1080 ml Intake Oral 480 ml IV Total 600 ml # Voids 1 # Bowel Movements 0 Result Diagram: 12/04/17 0151 12/04/17 0151 Imaging Last Impressions Head CT 12/03/171835 Signed Impressions: Service Date/Time: Sunday, December 03, 2017 19:17 - CONCLUSION: No acute findings in the brain. Sarthak Givens MD Chest X-Ray 12/03/171835 Signed Impressions: Service Date/Time: Sunday, December 03, 2017 18:54 - CONCLUSION: No acute disease. No significant change has occurred. Sincere Lau MD Objective Remarks General: Elderly male in no acute distress. Heart: Regular rate and rhythm. No murmur. Lungs: Clear to auscultation bilaterally. No wheezes, rales, or rhonchi. Breathing is nonlabored. Abdomen: Soft, nontender, nondistended. Extremities: No lower extremity edema. Psych: Alert and oriented. Procedures None Urinary Catheter: No Vascular Central Line Catheter: No A/P Problem List: (1) Near syncope ICD Code: R55 - Syncope and collapse (2) Elevated troponin ICD Code: R74.8 - Abnormal levels of other serum enzymes (3) Dilated cardiomyopathy ICD Code: I42.0 - Dilated cardiomyopathy Status: Chronic (4) LUISITO (acute kidney injury) ICD Code: N17.9 - Acute kidney failure, unspecified (5) UTI (urinary tract infection) ICD Code: N39.0 - Urinary tract infection, site not specified (6) Diarrhea ICD Code: R19.7 - Diarrhea, unspecified Assessment and Plan 1. Near-syncope: Patient continues to have lightheadedness, but is improving. Orthostatic vital signs are negative. Patient is dehydrated. He states that he has been having diarrhea since his last hospitalization, and felt that drinking less fluids would improve the diarrhea. Symptoms are likely not related to cardiac arrhythmia. Monitor closely on telemetry. 2. Elevated troponin: Trending down from prior hospitalization last month. Patient with no chest pain or palpitations. Monitor serial cardiac enzymes. Patient had a negative cardiac stress test on 11/11/17. 3. Dilated cardiomyopathy: AICD placed 11/14/[address] Lambert. Consider cardiology consult if symptoms worsen or arrhythmia is noted on telemetry. Continue carvedilol, Imdur, aspirin, Plavix. 4. UTI: Urine culture pending. Continue Rocephin. 5. Acute kidney injury: Secondary to dehydration. Caution with IV fluids due to history of cardiomyopathy. Creatinine is improving. 6. Diarrhea: Patient was treated with antibiotics during his prior hospitalization. He has had ongoing diarrhea since that time. Stool studies are pending including C. difficile. 7. DVT prophylaxis: SCDs, IBIS kruse. Discharge Planning Transfer to medical/surgical floor with telemetry. Possible discharge home tomorrow if symptoms continue to improve. Problem Qualifiers (1) Diarrhea: Qualified Codes: R19.7 - Diarrhea, unspecified Nima Lion MD Dec 04, 2017 09:21
--- NOTE | 2017-12-04 11:03 | EKG ---
Date Performed: 12/03/2017 Time Performed: 18:37:41 PTAGE: 77 years EKG: Sinus rhythm RIGHT BUNDLE BRANCH BLOCK ABNORMAL ECG Since the prior tracing, there has been no significant change PREVIOUS TRACING : 11/10/2017 07.49 DOCTOR: Pablo Fan Interpretating Date/Time 12/04/2017 11:00:09
[2017-12-04] MEDS: SODIUM CHLOR 0.9% 1000 ML INJ 1,000 ML IV SCH (15:20)
[2017-12-04] MEDS: cefTRIAXone INJ 1,000 MG in SODIUM CHLORIDE 0.9% INJ 100 ML IV SCH (23:24)
[2017-12-05] VITALS (7 sets, daily range): BP systolic 97–136; BP diastolic 56–66; PULSE 64–85; RESP 19–20; TEMP 97.4–98.1; O2SAT 93–97
[2017-12-05 05:47] LABS: AUTOMATED NEUTROPHIL # 2.7 TH/MM3 (1.8-7.7); BASOPHIL % 0.8 % (0.0-2.0); EOSINOPHIL # 0.3 TH/MM3 (0-0.4); EOSINOPHIL % 6.1 % (0.0-4.0); HEMATOCRIT 34.5 % (39.0-51.0); HEMOGLOBIN 12.3 GM/DL (13.0-17.0); LYMPH % 26.2 % (9.0-44.0); LYMPHOCYTE # 1.3 TH/MM3 (1.0-4.8); MEAN CELL VOLUME 91.7 FL (80.0-100.0); MEAN CORPUSCULAR HEMOGLOBIN 32.8 PG (27.0-34.0); MEAN CORPUSCULAR HGB CONC 35.7 % (32.0-36.0); MEAN PLATELET VOLUME 6.6 FL (7.0-11.0); MONO % 13.9 % (0.0-8.0); MONOCYTE # 0.7 TH/MM3 (0-0.9); PLATELET COUNT 192 TH/MM3 (150-450); RED BLOOD COUNT 3.76 MIL/MM3 (4.50-5.90); WHITE BLOOD COUNT 5.1 TH/MM3 (4.0-11.0)
[2017-12-05 06:15] LABS: BICARBONATE 28.7 MEQ/L (21.0-32.0); CALCIUM 8.4 MG/DL (8.5-10.1); CREATININE 0.8 MG/DL (0.60-1.30)
[2017-12-05] MEDS: ISOSORBIDE MONONITRATE 30 MG CR TAB (IMDUR) PO SCH (06:45)
[2017-12-05] MEDS: CLOPIDOGREL 75 MG TAB PO SCH (09:14)
[2017-12-05] MEDS: ATORVASTATIN 40 MG TAB PO SCH (09:14)
[2017-12-05] MEDS: ASPIRIN 81 MG CHEW TAB CHEW SCH (09:14)
[2017-12-05] MEDS: CARVEDILOL 3.125 MG TAB PO SCH (09:15)
[2017-12-05] MEDS: SODIUM CHLORIDE 0.9% FLUSH 10 ML FLUSH IV FLUSH SCH (09:17)
--- NOTE | 2017-12-05 13:11 | HHI.DS ---
Discharge Summary Admission Date Dec 03, 2017 at 22:48 Discharge Date: Dec 05, 2017 Admitting Diagnosis near syncope, LUISITO, dehydration, elevated troponin (1) Near syncope ICD Code: R55 - Syncope and collapse (2) Elevated troponin ICD Code: R74.8 - Abnormal levels of other serum enzymes (3) Dilated cardiomyopathy ICD Code: I42.0 - Dilated cardiomyopathy Status: Chronic (4) LUISITO (acute kidney injury) ICD Code: N17.9 - Acute kidney failure, unspecified (5) UTI (urinary tract infection) ICD Code: N39.0 - Urinary tract infection, site not specified (6) Diarrhea ICD Code: R19.7 - Diarrhea, unspecified Procedures None Brief History - From Admission HPI from the admitting physician This is a 77-year-old male with a PMH of HTN, Hyperlipidemia, CHF (Echo 11/11/17 w/ EF 20-25%), s/p AICD and h/o TIA/CVA who presented to the ER w/ complaints of dizziness and near syncopal event. Recent admit 11/09-11/15/14 for syncope, found to have PNA s/p Antibiotics and Dilated CM w/ EF 20-25%, s/p AICD 11/14/17 by Petra, +extensive carotid calcifications, s/p eval by Neurology w/ recommendation for Coumadin if EF <20%. +elevated trop, s/p Stress Test negative for ischemia. Pt also noted to have diarrhea, started on Lactinex. States he's had ongoing dizziness and intermittent diarrhea since discharge. Yesterday w/ near syncope, states he fell against the wall and head went straight through. Denies LOC. Today w/ similar event however no head trauma. Denies fever, chills, chest pain, nausea or vomiting. On arrival, BP 147/65, HR 73, O2 sat 96% on RA. Orthostatic Vitals negative. CBC essentially unremarkable. Creatinine 1.48, produces 0.99 11/14/17. Troponin 0.20, previously 0.50 on 11/10/17. INR 1.1. UA positive for UTI. CXR with no acute findings. CT Head negative. CBC/BMP: 12/05/17 0430 12/05/17 0430 Significant Findings Laboratory Tests Test 12/03/17 19:36 12/03/17 19:53 12/04/17 01:51 12/04/17 11:07 Red Blood Count 4.00 MIL/MM3 (4.50-5.90) 3.71 MIL/MM3 (4.50-5.90) Hemoglobin 12.9 GM/DL (13.0-17.0) 11.9 GM/DL (13.0-17.0) Hematocrit 36.9 % (39.0-51.0) 34.2 % (39.0-51.0) Mean Platelet Volume 6.6 FL (7.0-11.0) 6.5 FL (7.0-11.0) Monocytes (%) (Auto) 15.1 % (0.0-8.0) 15.5 % (0.0-8.0) Monocytes # (Auto) 1.0 TH/MM3 (0-0.9) Blood Urea Nitrogen 31 MG/DL (7-18) 30 MG/DL (7-18) Creatinine 1.48 MG/DL (0.60-1.30) Albumin 3.2 GM/DL (3.4-5.0) 2.8 GM/DL (3.4-5.0) Estimat Glomerular Filtration Rate 46 ML/MIN (>89) 63 ML/MIN (>89) Troponin I 0.20 NG/ML (0.02-0.05) 0.17 NG/ML (0.02-0.05) Urine Turbidity HAZY (CLEAR) Urine Occult Blood TRACE (NEG) Urine Leukocyte Esterase TRACE (NEG) Urine WBC 17 /hpf (0-5) Urine Bacteria FEW /hpf (NONE) Urine Mucus FEW /lpf (OCC) Urine Sperm RARE (NONE) Eosinophils (%) (Auto) 4.7 % (0.0-4.0) Random Glucose 109 MG/DL (74-106) Calcium Level 8.0 MG/DL (8.5-10.1) Test 12/04/17 13:00 12/05/17 04:30 Troponin I 0.22 NG/ML (0.02-0.05) Red Blood Count 3.76 MIL/MM3 (4.50-5.90) Hemoglobin 12.3 GM/DL (13.0-17.0) Hematocrit 34.5 % (39.0-51.0) Mean Platelet Volume 6.6 FL (7.0-11.0) Monocytes (%) (Auto) 13.9 % (0.0-8.0) Eosinophils (%) (Auto) 6.1 % (0.0-4.0) Blood Urea Nitrogen 19 MG/DL (7-18) Calcium Level 8.4 MG/DL (8.5-10.1) Imaging Last Impressions Head CT 12/03/171835 Signed Impressions: Service Date/Time: Sunday, December 03, 2017 19:17 - CONCLUSION: No acute findings in the brain. Sarthak Givens MD Chest X-Ray 12/03/171835 Signed Impressions: Service Date/Time: Sunday, December 03, 2017 18:54 - CONCLUSION: No acute disease. No significant change has occurred. Sincere Lau MD PE at Discharge General: Elderly male in no acute distress. Heart: Regular rate and rhythm. No murmur. Lungs: Clear to auscultation bilaterally. No wheezes, rales, or rhonchi. Breathing is nonlabored. Abdomen: Soft, nontender, nondistended. Extremities: No lower extremity edema. Psych: Alert and oriented. Pt update on day of discharge Patient reports he is feeling great. Eager to go home. No lightheadedness, shortness of breath, or chest pain. Hospital Course 77-year-old male who presented to the hospital with near syncope. The patient was found to acute renal failure. Apparently prior to coming to the hospital he has been having diarrhea and he stopped drinking fluid in an attempt to stop the diarrhea. Apparently he became very dehydrated with acute renal failure. He was admitted and hydrated with IV fluid. Renal function recovered. Diarrhea resolved. Stool studies were unremarkable. Patient is discharged in good condition to follow-up outpatient with PCP. Pt Condition on Discharge: Good Discharge Disposition: Discharge Home Discharge Time: <= 30 minutes Discharge Instructions DIET: Follow Instructions for: Heart Healthy Diet Activities you can perform: Regular-No Restrictions Continued Medications: Aspirin (Aspirin) 81 Mg Chew 81 MG CHEW DAILY, TAB 0 Refills Carvedilol (Coreg) 3.125 Mg Tab 3.125 MG PO Q12HR for heart disease, #60 TAB 0 Refills Clopidogrel (Clopidogrel) 75 Mg Tab 75 MG PO DAILY for Blood Clot Prevention, #30 TAB 0 Refills Furosemide (Furosemide) 40 Mg Tab 40 MG PO DAILY for cardiomyopathy, #30 TAB 0 Refills Hydrocodone-Acetaminophen (Hydrocodone-Acetaminophen) 5-300 Mg Tab 1 TAB PO Q6H PRN for PAIN, TAB 0 Refills Isosorbide Mononitrate ER (Isosorbide Mononitrate ER) 30 Mg Ajay 30 MG PO DAILY@07 for heart disease, #30 TAB 0 Refills Lisinopril (Lisinopril) 5 Mg Tab 2.5 MG PO DAILY for cardiomyopathy, #30 TAB 0 Refills Nitroglycerin SL (Nitroglycerin SL) 0.4 Mg Subl 0.4 MG SL DIRECTED PRN for CHEST PAIN, #100 TAB.SL 0 Refills ONE TABLET UNDER THE TONGUE NEEDED FOR CHEST PAIN, MAY REPEAT EVERY FIVE MINUTES FOR A TOTAL OF 3 DOSES OR CALL 911 IF NO RELIEF Rosuvastatin (Rosuvastatin) 20 Mg Tab 20 MG PO DAILY for Cholesterol Management, #30 TAB 0 Refills Janel Calvin MD Dec 05, 2017 13:11
== END 2017-12-05 13:55 | disposition home or self-care (01) ==
LOC: NEPC 18:27 → NEDA 22:48 → N03B 12-04 00:25 → N04A 12-04 15:10
PROVIDERS: ADMIT Family Medicine; ATTEND Family Medicine
DX: R55 Syncope and collapse (principal); R74.8 Abnormal levels of other serum enzymes; I42.0 Dilated cardiomyopathy; N17.9 Acute kidney failure, unspecified; N39.0 Urinary tract infection, site not specified; R19.7 Diarrhea, unspecified; R42 Dizziness and giddiness; I11.0 Hypertensive heart disease with heart failure; I50.9 Heart failure, unspecified; I25.10 Atherosclerotic heart disease of native coronary artery without angina pectoris; I73.9 Peripheral vascular disease, unspecified; I25.2 Old myocardial infarction; E86.0 Dehydration; I45.10 Unspecified right bundle-branch block; R94.31 Abnormal electrocardiogram [ECG] [EKG]; H53.8 Other visual disturbances; Z79.82 Long term (current) use of aspirin; Z79.02 Long term (current) use of antithrombotics/antiplatelets; E78.00 Pure hypercholesterolemia, unspecified; Z86.73 Personal history of transient ischemic attack (TIA), and cerebral infarction without residual deficits; Z79.899 Other long term (current) drug therapy; Z95.810 Presence of automatic (implantable) cardiac defibrillator
CPT/HCPCS: 70450; 71045; 80048; 80053; 81001; 82550; 83735; 84484; 85025; 85610; 85730; 87086; 87205; 87493; 93005; 96361; 96365; 96366; 97162; 99285; G0378; G8987; G8988; J0696; J7030; J7040